=== PATIENT | male | born 1945 | race Caucasian/White ===

== ENCOUNTER 2023-11-02 10:23 | Inpatient (IN) | payer BC, MEDICARE, SELFPAY ==
[2023-11-02] VITALS (16 sets, daily range): BP systolic 100–133; BP diastolic 49–79
[2023-11-02] MEDS: NSS 500 IV (06:50)
[2023-11-02 07:18] LABS: Hematocrit 37.2 % (39.0-52.0); Hemoglobin 12.5 g/dL (13.0-18.0); Mean Corp Hgb Conc. 33.6 g/dL (33.0-37.0); Mean Corpuscular Hgb 28.8 pg (27.0-31.0); Mean Corpuscular Volume 85.7 fL (80.0-94.0); Mean Platelet Volume 8.4 fL (7.4-10.4); Platelet Count 321 10^3/uL (130-400); Red Blood Cell Count 4.34 10^6/uL (4.70-6.10); Red Cell Dist. Width 13.3 % (11.5-14.5); White Blood Cell Count 7.8 10^3/uL (4.8-10.8)
[2023-11-02 08:00] LABS: ALT (SGPT) 25 U/L (0-50); AST (SGOT) 29 U/L (17-59); Albumin 4.4 g/dl (3.5-5.0); Alkaline Phosphatase 68 U/L (38-126); Blood Urea Nitrogen 18 mg/dl (9-20); Calcium 9.3 mg/dl (8.4-10.2); Carbon Dioxide 22 mmol/L (22-30); Chloride 106 mmol/L (98-107); Glucose 94 mg/dl (70-99); Potassium 4.9 mmol/L (3.5-5.1); Sodium 134 mmol/L (135-145); Total Bilirubin 0.5 mg/dl (0.2-1.3); Total Protein 7.4 g/dl (6.3-8.2); eGFR > 60.00
--- NOTE | 2023-11-02 09:15 | ITS.CL.PACE ---
Food Editor - Pacemaker Implant
Pacemaker Implant
Procedure Report:
PACEMAKER IMPLANT REPORT
Primary Care Provider: Dr. Carlene Stewart
Primary retail beauty specialist: Dr. Aryan Calvo
Date of Procedure: November 02, 2023
Procedure:
Implantation of dual-chamber permanent pacemaker utilizing the left bundle branch for conduction system pacing
Indication/Diagnosis:
Non-reversible symptomatic bradycardia due to sinus node dysfunction as well as high grade AV block (both second atrioventricular block as well as third degree atrioventricular block)
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
After informed consent was obtained, 'time out' was called and confirmed, the patient was prepped and draped in a sterile fashion. Lidocaine with epi was used for local anesthesia. Central venous access was obtained via subclavian venipuncture. An
incision was made along the left chest and a pre-pectoral pocket was formed. Using a Seldinger technique and peel-away sheaths, the pacing leads were placed under fluoroscopic guidance.
Fluoroscopy was used to determine likely anatomic site for left bundle branch pacing. The Medtronic C315 sheath was used to deliver the Medtronic 3830 Selectsecure pacing lead with the helix exposed just exposed from the sheath tip during continuous
monitoring when pacemapping the septum during gentle clockwise rotation to obtain a paced QRS morphology of a W pattern in lead V1. Once the suspected optimal site was identified, lead deployment was performed with several rapid rotations as paced
QRS morphology was intermittently monitored until a paced QRS complex in lead V1 demonstrated development of an R wave (qR) with change in morphology with reducing pacing output (development of a taller R with reducing pacing output).
Unipolar pacing impedance dropped by approximately 100 ohms suggesting it had reached the left ventricular subendocardial.
Stable VEgm injury current is present throughout lead position and at end of case.
Final unipolar pacing impedance is 890 Ohms
Unipolar pacing threshold is stable at 1 V @ 0.4 ms.
Final conduction system paced QRS complex duration is 115 ms
LVAT is 65 ms
Right atrial lead was placed at the RAA.
Once testing (see below) showed adequate and stable function, the leads were secured using the suture sleeves. The pocket was liberally irrigated with antibiotic solution. The leads were connected to the generator header and the leads and
generator were placed within the pocket. Fluoroscopy confirmed stable lead position. The pocket was closed in the typical fashion.
Antibiotic pouch was used
Fluoroscopy was used to guide lead placement. Fluoroscopic exposure 4.8 min, 8.69 mGy, 1.01 DAP
IMPLANTS:
Medtronic [id number], SN: [id number], Left Pectoral
RA: Medtronic 5076-45, SN: [id number] , RAA
RV: Medtronic 3830 , SN:[id number], Interventricular septum at LBB
DEVICE TESTING:
Sensing: RA 3.8 mV, RV 12 mV
Capture: RA 1.5 V@0.4ms, RV 1 V@0.4ms
Ohms: RA 540, RV 890
FINAL PROGRAMMING
Pantera Pacing: AAIR+ 60-130 ppm
COMPLICATIONS:
None
CONCLUSIONS:
Successful implant of dual chamber permanent pacemaker utilizing Left Bundle Branch conduction system capture for pacing. Overall findings are most consistent with LBB capture.
RECOMMENDATIONS:
Post-op care (tele, CXR, IV abx)
Hospital admission preplanned, for sotalol reloading (sotalol 80 mg twice daily)
In-Office wound check in 5-7 days
Copy to:
Dr. Carlene Stewart
Dr. Aryan Calvo
[2023-11-02] MEDS: TYLENOL 650 MG PO ×3 (09:19→19:49)
[2023-11-02] MEDS: AUGMENTIN 500 MG/125 MG 1 TABLET PO ×2 (09:56→22:11)
[2023-11-02] MEDS: BETAPACE 80 MG PO ×2 (10:08→19:49)
--- NOTE | 2023-11-02 11:00 | PTCARENOTE ---
Rec'd report from Camryn in nursery laborer. Rec'd pt AAOx3 w/no c/o CP or SOB post PPM placement. Pt w/LUE immobilizer in place & this RN reiterated activity restrictions. VS stable w/HR in the 60's. Pt is V-paced on telemetry monitoring. Pt w/call glaser
within reach & plan of care ongoing.
[2023-11-02] MEDS: NSS IV (13:57)
[2023-11-02] MEDS: ANCEF 5 IV ×2 (14:39→22:00)
[2023-11-02] MEDS: FLUSH (NSS) 2 FLUSH IV (14:40)
--- NOTE | 2023-11-02 15:59 | CM ---
Reviewed chart. Met with Mr. Bingham to review discharge plans. He states prior to admission he resides with his spouse in a three story home. He states he has a full flight of steps to get to bedroom/full bathroom. He states he has a powder
room on the first floor. He states prior to admission he was independent with ambulation and adls. He states he does not have any DME in the home. He states he has a prescription plan. Medical work-up in progress. The discharge plan is to return
home with his spouse when medically stable.
[2023-11-02] MEDS: CRESTOR 5 MG PO (21:59)
[2023-11-02] MEDS: ULTRAM 50 MG PO (21:59)
[2023-11-02] MEDS: PROTONIX 40 MG PO (21:59)
[2023-11-02] MEDS: XALATAN OPHTHALMIC SOLUTION 1 DROP BOTH EYES (22:00)
[2023-11-02] MEDS: AMBIEN 5 MG PO (22:57)
--- NOTE | 2023-11-03 01:22 | PTCARENOTE ---
Pt received start of shift, HR AV paced w/ underlying SR w/ 1st degree HB. Pt OOB walking the unit with at side. Once back in the room, discussed with pt plan of care and purpose of arm immobilizer. Pt states understanding. Pt denies CP, SOB,
or lightheadedness/dizziness at this time. Informed to notify RN if any change, call glaser within reach.
Pt c/o 10/27 pain at insertion site. tylenol given, ineffective. New pain 12/27. CVPA Ed Gwendolyn notified, ultram ordered and administered.
[2023-11-03 04:00] VITALS: BP 99/49
[2023-11-03 04:43] LABS: Hematocrit 33.4 % (39.0-52.0); Hemoglobin 11.1 g/dL (13.0-18.0); Mean Corp Hgb Conc. 33.2 g/dL (33.0-37.0); Mean Corpuscular Hgb 28.2 pg (27.0-31.0); Mean Platelet Volume 8.7 fL (7.4-10.4); Platelet Count 287 10^3/uL (130-400); Red Blood Cell Count 3.93 10^6/uL (4.70-6.10); Red Cell Dist. Width 13.1 % (11.5-14.5); White Blood Cell Count 12.7 10^3/uL (4.8-10.8)
[2023-11-03 05:05] LABS: Blood Urea Nitrogen 17 mg/dl (9-20); Calcium 9.1 mg/dl (8.4-10.2); Carbon Dioxide 23 mmol/L (22-30); Chloride 103 mmol/L (98-107); Estimated Creatinine Clearance 62 ml/min; Glucose 102 mg/dl (70-99); Potassium 4.5 mmol/L (3.5-5.1); Sodium 133 mmol/L (135-145); eGFR > 60.00
[2023-11-03 07:42] VITALS: BP 112/69
[2023-11-03] MEDS: NSS IV (08:02)
[2023-11-03] MEDS: BETAPACE 80 MG PO ×2 (08:03→18:00)
[2023-11-03] MEDS: PROTONIX 40 MG PO (08:03)
[2023-11-03] MEDS: FLOMAX 0.400000000000000022 MG PO (08:03)
[2023-11-03] MEDS: AUGMENTIN 500 MG/125 MG 1 TABLET PO (09:49)
[2023-11-03] MEDS: PERCOCET 5/325 1 TABLET PO (09:49)
--- NOTE | 2023-11-03 09:51 | W.PN.CARDCBS ---
Addendum entered and electronically signed by Abiel Grossman MD 11/03/23 10:13:
Patient seen, interviewed and examined by me.
Well-appearing, no acute distress
Dressing over left chest is clean and dry
Regular rate and rhythm with normal S1 and S2, no S3 no S4. There is a grade 1/6 apical holosystolic murmur and no rubs. PMI is normally placed.
Lungs are clear to auscultation bilaterally without wheezes rales or rhonchi.
Abdomen soft nontender nondistended with normoactive bowel sounds
Extremities show trace pretibial edema bilaterally no clubbing or cyanosis.
Neurologic exam is grossly nonfocal.
Agree with advanced practice professionals assessment and plan as noted below.
He is doing well after pacemaker implantation yesterday. Telemetry continues to demonstrate sinus rhythm/atrial pacing.
EKG with stable corrected QT interval.
Continue sotalol with plan for discharge to home later today after his second dose today as long as QT corrected remains stable.
All of his questions have been answered.
Original Note:
Today's Communication / Plan
-
post PPM, sotalol loading
4th dose this evening if QTc stable, d/c home
Impression / Plan
-
Primary Care Provider: Dr. Carlene Stewart
Primary corrosion technician: Dr. Aryan Calvo
Impression:
Symptomatic bradycardia
Syncope
SVT/AVNRT post ablation 2015
MINNIE/Malabsorption
Chronic diverticulitis
Bladder cancer
Gastritis
GERD
Plan:
post DC PPM using LBB conduction pacing 11/02/23
Sotalol reloading 80mg bid Dose #3 this am QTc 477
Will get 4th dose tonight at 6pm if QTc stable d/c home
CXR no PTX
tele AVdual paced
site stable
mod pain, will give Percocet now
pressure dressing removed
Miralax for constipation
Activity restrictions reviewed
inc check 1 week
home after 4th dose tonight
Progress Note - Certified Nurse Practitioner
Subjective
Date of Service: November 03, 2023
no cp, sob, mod inc pain mild relief with ultram
Objective
Labs:
11/03/23 04:05
11/03/23 04:05
Labs
Hgb 11.1 g/dL (13.0-18.0) L 11/03/23 04:05
Hct 33.4 % (39.0-52.0) L 11/03/23 04:05
Plt Count 287 10^3/uL (130-400) 11/03/23 04:05
Sodium 133 mmol/L (135-145) L 11/03/23 04:05
Potassium 4.5 mmol/L (3.5-5.1) 11/03/23 04:05
BUN 17 mg/dl (9-20) 11/03/23 04:05
Creatinine 0.9 mg/dL (0.7-1.3) 11/03/23 04:05
Glucose 102 mg/dl (70-99) H 11/03/23 04:05
Vital Signs and I&O:
Vital Signs
Temp Pulse Resp BP Pulse Ox
98 F 63 12 112/69 98
11/03/23 07:41 11/03/23 09:15 11/03/23 07:41 11/03/23 08:03 11/03/23 07:41
Vital Signs
Temp Pulse Resp BP Pulse Ox
98 F 63 12 112/69 98
11/03/23 07:41 11/03/23 09:15 11/03/23 07:41 11/03/23 08:03 11/03/23 07:41
Intake & Output
11/01/23 11/02/23 11/03/23 11/04/23
06:59 06:59 06:59 06:59
Intake Total 1720 / 1720
Output Total 150 / 150
Balance 1570 / 1570
Physical Exam
Physical Exam
NAD, AOX3
S1, S2, RRR
CTAB, non labored
SNTND BSx4
L CW Aquacel dressing c/d/i, pressure dressing removed, no HT
[2023-11-03 11:29] VITALS: BP 108/63
--- NOTE | 2023-11-03 13:37 | W.DS.TRANS ---
DC Summary - Tutoring Manager
-
Discharge Instructions:
Discharge Diagnosis/Procedures Pacemaker implant, Sotalol load
Diet Low Cholesterol
Driving Restrictions No driving for 1 week
Bathing Restrictions OK to Shower
Instructions:
Stand-Alone Forms: DC Inst - Implanted Device
Changes to Home Medications: Yes
Discharge Medications:
DC Medications w/original date entered in [employer]
latanoprost 0.005 % eye drops 1 drp BOTH EYES HS Eye Condition 06/01/15
ascorbic acid (vitamin C) 500 mg tablet (Vitamin C) 500 mg PO DAILY Supplement 10/24/15
cholecalciferol (vitamin D3) 25 mcg (1,000 unit) capsule (Vitamin D3) 1,000 unit PO DAILY Supplement 10/24/15
cyanocobalamin (vitamin B-12) 1,000 mcg tablet 1,000 mcg PO DAILY Supplement 10/24/15
multivitamin with minerals-ferrous sulfate 4.5 mg iron tablet (One Daily Multivitamins with Minerals) 1 tab PO DAILY Supplement 10/24/15
Lactobacillus rhamnosus GG 15 billion cell sprinkle capsule (Culturelle) 1 tab PO DAILY Gastrointestinal Issue 09/27/20
zolpidem 10 mg tablet 5 mg PO HS Sleep 09/27/20
Cold-Fx 1 tab PO DAILY 09/04/21
Flourouracil 5% Cream 1 dose topical BID 09/04/21
Venofer 1 dose IV PRN PRN ANEMIA 09/04/21
Vitamin B12 1,000 mg SC MONTHLY 09/04/21
amoxicillin 500 mg-potassium clavulanate 125 mg tablet 1 tab PO Q12H diverticulitis 09/04/21
diazepam 5 mg tablet 2.5 mg PO HSPRN PRN SLEEP 09/04/21
hydrocodone 5 mg-acetaminophen 300 mg tablet (Vicodin) 1 ea PO PRN PRN KIDNEY STONES 09/04/21
minoxidil 5 % topical solution (Rogaine Extra Strength for Men) 1 dose topical DAILY 09/04/21
sodium di- and monophosphate-potassium phos monobasic 250 mg tablet (Phosphorous) 250 mg PO PRN PRN LOW PHOSPHOROUS 09/04/21
zinc 50 mg tablet 50 mg PO PRN PRN COLDS 09/04/21
tamsulosin 0.4 mg capsule 0.4 mg PO DAILY #30 caps 09/09/21
docusate sodium 100 mg capsule (Colace) 100 mg PO BID PRN constipation 11/02/23
omeprazole 20 mg tablet,delayed release 20 mg PO DAILY Gastrointestinal Issue 11/02/23
omeprazole magnesium 20 mg tablet,delayed release (Prilosec OTC) 20 mg PO HS 11/02/23
rosuvastatin 5 mg tablet 5 mg PO HS High Cholesterol 11/02/23
sennosides 8.6 mg tablet (senna) 1 tab PO DAILY Constipation 11/03/23
sotalol 80 mg tablet 80 mg PO BID #60 tabs 11/03/23
Home Medication Changes
new to sotalol
Pending Results: No
[2023-11-03 15:25] VITALS: BP 96/56
[2023-11-03 18:02] VITALS: BP 111/66
--- NOTE | 2023-11-03 18:59 | PTCARENOTE ---
Reviewed pt's d/c instructions w/ pt and . Pt awaiting 1999 EKG. Report given to scene shifter RN.
--- NOTE | 2023-11-03 20:27 | PTCARENOTE ---
Pt's EKG completed 2hrs post dose #4 of Sotalol. QTc was 440. Per MD order pt cleared for D/C this evening. Pt's IV line & telemetry D/C'd. Pt D/C'd to w/spouse providing transportation.
== END 2023-11-03 20:29 | disposition home or self-care (01) | DRG 243 ==
LOC: IVU 10:23
PROVIDERS: Nurse Practitioner; ADMITTING PHYSICIAN Internal Medicine Cardiovascular Disease; FAMILY PHYSICIAN Family Medicine
PROC: 3E0102A Introduction of Anti-Infective Envelope into Subcutaneous Tissue, Open Approach (ICD-10-PCS; 2023-11-02)
PROC: 02H63JZ Insertion of Pacemaker Lead into Right Atrium, Percutaneous Approach (ICD-10-PCS; 2023-11-02)
PROC: 0JH606Z Insertion of Pacemaker, Dual Chamber into Chest Subcutaneous Tissue and Fascia, Open Approach (ICD-10-PCS; 2023-11-02)
PROC: 3E0DXRZ Introduction of Antiarrhythmic into Mouth and Pharynx, External Approach (ICD-10-PCS; 2023-11-02)
PROC: 02HK3JZ Insertion of Pacemaker Lead into Right Ventricle, Percutaneous Approach (ICD-10-PCS; 2023-11-02)
DX: I44.2 Atrioventricular block, complete (principal); K90.9 Intestinal malabsorption, unspecified; I49.5 Sick sinus syndrome; I47.19 Other supraventricular tachycardia; D50.9 Iron deficiency anemia, unspecified; K21.9 Gastro-esophageal reflux disease without esophagitis; Z87.19 Personal history of other diseases of the digestive system; Z85.51 Personal history of malignant neoplasm of bladder
CPT/HCPCS: 33208; 71045; 80048; 80053; 85027; 93005; C1769; C1785; C1887; C1892; C1898; Q9967

== ENCOUNTER → 2023-11-27 15:14 | Outpatient (REF) | payer BC, MEDICARE, SELFPAY ==
[2023-11-27 10:03] LABS: % Basophils 0.5 % (0-2); % Eosinophils 3.4 % (0-6); % Immature Granulocytes 0.2 % (0-0.5); % Lymphocytes 17.3 % (20.5-51.1); % Neutrophils 67.6 % (42.2-75.2); Absolute Eosinophils 0.3 10^3/uL (0-0.7); Absolute Lymphocytes 1.5 10^3/uL (1.2-3.4); Hematocrit 36.2 % (39.0-52.0); Hemoglobin 12.3 g/dL (13.0-18.0); Mean Corpuscular Hgb 28.7 pg (27.0-31.0); Mean Corpuscular Volume 84.4 fL (80.0-94.0); Mean Platelet Volume 9.2 fL (7.4-10.4); Nucleated Red Blood Cells % 0 % (-); Platelet Count 215 10^3/uL (130-400); Red Blood Cell Count 4.29 10^6/uL (4.70-6.10); Red Cell Dist. Width 13.8 % (11.5-14.5); White Blood Cell Count 8.8 10^3/uL (4.8-10.8)
== END ==
LOC: OIDL 15:14
PROVIDERS: ATTENDING PHYSICIAN Internal Medicine Hematology & Oncology
DX: D64.9 Anemia, unspecified (principal)
CPT/HCPCS: 85025

== ENCOUNTER → 2023-12-04 13:35 | Outpatient (REF) | payer BC, MEDICARE, SELFPAY ==
[2023-12-04 10:25] LABS: % Basophils 0.7 % (0-2); % Eosinophils 3.7 % (0-6); % Immature Granulocytes 0.3 % (0-0.5); % Lymphocytes 18.3 % (20.5-51.1); % Monocytes 11.1 % (1.7-9.3); % Neutrophils 65.9 % (42.2-75.2); Absolute Basophils 0.1 10^3/uL (0-0.2); Absolute Eosinophils 0.3 10^3/uL (0-0.7); Absolute Lymphocytes 1.3 10^3/uL (1.2-3.4); Absolute Monocytes 0.8 10^3/uL (0.1-0.6); Absolute Neutrophils 4.8 10^3/uL (1.4-6.5); Hematocrit 36.3 % (39.0-52.0); Hemoglobin 12.4 g/dL (13.0-18.0); Mean Corp Hgb Conc. 34.2 g/dL (33.0-37.0); Mean Corpuscular Hgb 28.8 pg (27.0-31.0); Mean Corpuscular Volume 84.4 fL (80.0-94.0); Mean Platelet Volume 9.2 fL (7.4-10.4); Nucleated Red Blood Cells % 0 % (-); Platelet Count 232 10^3/uL (130-400); White Blood Cell Count 7.3 10^3/uL (4.8-10.8)
== END ==
LOC: OIDL 13:35
PROVIDERS: ATTENDING PHYSICIAN Internal Medicine Hematology & Oncology
DX: D64.9 Anemia, unspecified (principal)
CPT/HCPCS: 85025

== ENCOUNTER → 2023-12-31 11:36 | Outpatient (REF) | payer BC, SELFPAY | LOC: RCS 11:36 | PROVIDERS: ATTENDING PHYSICIAN Internal Medicine Cardiovascular Disease; FAMILY PHYSICIAN Family Medicine | DX: I47.10 Supraventricular tachycardia, unspecified (principal); R53.82 Chronic fatigue, unspecified; I49.5 Sick sinus syndrome | CPT/HCPCS: 93306 ==

== ENCOUNTER → 2024-01-05 09:55 | Outpatient (REF) | payer BC, SELFPAY | LOC: RCS 09:55 | PROVIDERS: ATTENDING PHYSICIAN Internal Medicine Cardiovascular Disease; FAMILY PHYSICIAN Family Medicine | DX: I47.10 Supraventricular tachycardia, unspecified (principal); R53.82 Chronic fatigue, unspecified | CPT/HCPCS: 93017; 93225; 93226 ==

== ENCOUNTER → 2024-06-30 13:08 | Outpatient (REF) | payer BC, SELFPAY | LOC: HWRAD 13:08 | PROVIDERS: ATTENDING PHYSICIAN Specialist; FAMILY PHYSICIAN Family Medicine | DX: N45.1 Epididymitis (principal) | CPT/HCPCS: 76870; 93976 ==

== ENCOUNTER 2024-08-01 07:49 | Outpatient (RCR) | payer BC, SELFPAY | END 2024-08-01 23:59 | disposition home or self-care (01) | LOC: RPT 07:49 | PROVIDERS: ATTENDING PHYSICIAN Family Medicine | DX: R10.32 Left lower quadrant pain (principal); R10.2 Pelvic and perineal pain; R35.1 Nocturia; M62.89 Other specified disorders of muscle; Z73.6 Limitation of activities due to disability | CPT/HCPCS: 97163; 97530 ==

== ENCOUNTER → 2024-08-09 14:27 | Outpatient (REF) | payer BC, SELFPAY | LOC: HWRAD 14:27 | PROVIDERS: ATTENDING PHYSICIAN Specialist; FAMILY PHYSICIAN Family Medicine | DX: N50.89 Other specified disorders of the male genital organs (principal) | CPT/HCPCS: 76870; 93976 ==

== ENCOUNTER → 2024-08-10 08:27 | Outpatient (REF) | payer BC, SELFPAY | LOC: RAD 08:27 | PROVIDERS: ATTENDING PHYSICIAN Specialist; FAMILY PHYSICIAN Family Medicine | DX: R10.32 Left lower quadrant pain (principal) | CPT/HCPCS: 76882 ==

== ENCOUNTER 2025-01-13 09:31 | Day surgery (SDC) | payer BC, SELFPAY ==
[2025-01-13] MEDS: ELIQUIS 5 MG PO (09:50)
[2025-01-13 10:17] VITALS: BMI 25.2
--- NOTE | 2025-01-13 18:44 | ITS.CL.CARDI ---
Service Worker - Cardioversion
Cardioversion
Procedure Report:
Date of Procedure: 01/13/25
Procedure: Cardioversion
Indication: Symptomatic atrial fibrillation
Performing Physician: Princess Funes DO [facility]
-Limited device interrogation: Medtronic [place] Rx T DR MRI device with atrial fibrillation and ventricular pacing.
-Anticoagulation: Eliquis 5mg BID initiated 01/12/2025 pm; Eliquis 5 mg x 1 given in PACU prior to procedure
-Antiarrhythmic: Sotalol 80 mg twice daily
-GI clearance: Patient reported pill dysphagia and history of partial gastrectomy, prior PUD and recent GI procedures at [facility]. Telephone conversation with patient's digital sales executive, Dr. Vinh Jones and reviewed records
from [facility] status post upper GI endoscopy 01/09/2025. Esophagus normal. No diverticula or strictures. Adenomatosis mucosal changes in the anastomosis and jejunum status post argon beam coagulation. X-ray cervical esophagus
with contrast January 05, 2023: No evidence of cricopharyngeal bar. No evidence of esophageal web, stricture or diverticulum. Normal swallowing function. Per Dr. Jones, patient is at the highest risk of bleeding 48 hours after therapy. Per GI
telephone conversation, no contraindications to anticoagulation or proceeding with transesophageal echocardiogram. Discussed increased bleeding risks with patient and offered options including 4 weeks anticoagulation followed by cardioversion, 2
weeks anticoagulation to ensure stability of hemoglobin followed by NEIL/cardioversion or proceeding with NEIL/cardioversion today as previously planned. Marco Antonio has a history of peptic ulcer disease and GI bleed status post radical B2 gastric
restrictions with vagotomy in 2008; he denies recent GI bleed or anemia requiring transfusions. He does have symptoms of fatigue and shortness of breath attributable to his rapid atrial fibrillation. After reviewing risks/benefits and indications
he is agreeable to proceed with NEIL today followed by cardioversion.
-NEIL performed without complications [gastric views not obtained]: No left atrial Appendage thrombus. For full details please see official report
Technique: The patient was brought to the holding area. Signed informed consent was obtained. A time out was called and performed. The patient was anesthetized by the anesthesia service. Anticoagulation status was reviewed and appropriate. R2 pads
were placed anteriorly and posteriorly. Transesophageal echocardiogram performed without complications. No left atrial appendage thrombus. A 200 J synchronized biphasic shock restored AV paced Rhythm confirmed by device interrogation. There were no
complications.
Conclusion: Uncomplicated cardioversion from atrial fibrillation to AV paced rhythm.
Recommendation: Routine post cardioversion care. Continue uninterrupted anticoagulation with Eliquis 5 mg twice daily. Follow-up with his litigation specialist, Dr. Clifton Grossman; Ablation scheduled 03/29/2025.
== END 2025-01-13 13:06 | disposition home or self-care (01) ==
LOC: CATH 09:31
PROVIDERS: ATTENDING PHYSICIAN Internal Medicine Cardiovascular Disease; FAMILY PHYSICIAN Family Medicine; REFERRING PHYSICIAN Internal Medicine Cardiovascular Disease
DX: I48.91 Unspecified atrial fibrillation (principal); I08.1 Rheumatic disorders of both mitral and tricuspid valves; R13.10 Dysphagia, unspecified; Z79.01 Long term (current) use of anticoagulants; Z79.899 Other long term (current) drug therapy; Z87.11 Personal history of peptic ulcer disease; Z90.3 Acquired absence of stomach [part of]; I47.10 Supraventricular tachycardia, unspecified; E78.5 Hyperlipidemia, unspecified; I49.5 Sick sinus syndrome
CPT/HCPCS: 93312; 93320; 93325; 92960; 93005

== ENCOUNTER 2025-03-29 08:04 | Day surgery (SDC) | payer BC, SELFPAY ==
[2025-03-22 08:53] VITALS: BMI 24.7
[2025-03-22 09:44] LABS: Hematocrit 36.8 % (39.0-52.0); Hemoglobin 12.1 g/dL (13.0-18.0); Mean Corp Hgb Conc. 32.9 g/dL (33.0-37.0); Mean Corpuscular Volume 84.8 fL (80.0-94.0); Nucleated Red Blood Cells % 0 % (-); Platelet Count 241 10^3/uL (130-400); Red Cell Dist. Width 13.5 % (11.5-14.5)
[2025-03-22 09:50] LABS: INR 1.08; PT 14.5 Sec (11.4-14.6)
[2025-03-22 10:39] LABS: ALT (SGPT) 41 U/L (0-50); AST (SGOT) 28 U/L (17-59); Albumin 4.5 g/dl (3.5-5.0); Alkaline Phosphatase 71 U/L (38-126); Blood Urea Nitrogen 13 mg/dl (9-20); Calcium 9.7 mg/dl (8.4-10.2); Carbon Dioxide 25 mmol/L (22-30); Chloride 105 mmol/L (98-107); Estimated Creatinine Clearance 62 ml/min; Glucose 105 mg/dl (70-99); Magnesium 2.2 mg/dl (1.6-2.3); Potassium 4.7 mmol/L (3.5-5.1); Sodium 136 mmol/L (135-145); Total Protein 7.3 g/dl (6.3-8.2); eGFR > 60.00
[2025-03-29] VITALS (11 sets, daily range): BP systolic 107–128; BP diastolic 65–75
[2025-03-29] MEDS: TYLENOL 1000 MG PO (09:10)
--- NOTE | 2025-03-29 09:16 | ITS.CL.ABL ---
Explosive Operator Bomb - Ablation
Ablation
Procedure Report:
ELECTROPHYSIOLOGIC STUDY AND POSSIBLE ABLATION
DATE: March 29, 2025
Primary Care Providers:
Dr. Carlene Stewart
Dr. Maryanne Gomez
INDICATION:
Symptomatic Atrial Fibrillation.
Persistent
HISTORY: See H and P.
Symptomatic AF, poorly controlled with attempted medical therapy
HAS-BLED: 2
Age
H/O Bleeding
CHADSVASc: 2
Age
PRESENTING RHYTHM: SR
HISTORY: See H and P.
Symptomatic AF, poorly controlled with attempted medical therapy.
He has a complex arrhythmia history.
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
but ultimately recurred and has been treated with sotalol with overall good symptom control regarding the atrial tachycardia.
He developed symptomatic bradycardia from AV block and underwent implantation of conduction system dual-chamber permanent pacemaker on November 02, 2023 (Medtronic left bundle branch pacing system).
He then developed progressive fatigue and dyspnea on exertion with pacemaker diagnostics demonstrating persistence of atrial fibrillation.
Complicating medical history includes chronic iron deficiency anemia and malabsorption syndrome related to remote history of distal gastrectomy and gastrojejunal anastomosis. Subsequently he has had recurrent and at times severe GI bleeding
requiring blood transfusion. Due to recurrent GI bleeding maintaining anticoagulation has been difficult. Most recently he has tolerated Eliquis 5 mg twice daily with no major bleeding complications.
ANTIARRHYTHMIC DRUG: Sotalol 80 mg twice daily
ANTICOAGULATION: Apixaban 5 mg twice daily
'TIME-OUT': called and confirmed.
SEDATION/ANESTHESIA: provided via the anesthesia department using general anesthesia.
PROCEDURE:
Ultrasound Guidance with real-time visualization of needle insertion and vessel patency performed by tn for femoral venous Vascular Access.
Under real-time US guidance, the needle was advanced with negative pressure into the vein. The needle was seen entering the vessel lumen with a good return of dark red flow, the syringe was removed, non-pulsatile, dark red blood low was noted and
the wire was passed without difficulty, then the needle was removed. US confirmed the wire was in the vein, not going into an artery,
Images were taken and saved for the patient's permanent record. Imaging findings typical femoral venous anatomy. Direct visualization of needle puncture into the femoral vein was observed and recorded.
3 sheaths were inserted into the right femoral vein.
10 Fr, 10Fr, 7 Fr a 10fr sheath was then exchanged for the 13 Fr Agilis deflectable sheath and dilator over a wire.
A decapolar CS catheter was positioned within the CS for mapping and pacing.
The intracardiac ultrasound catheter was positioned in the RA for continuous intracardiac ultrasound imaging.
Heparin bolus and infusion to target ACT at 300 -350 seconds was administered. Transseptal puncture was performed. This entailed advancing a sheath with dilator into the superior vena cava and withdrawing both (monitoring intracardiac ultrasound,
fluoroscopy and tip pressure) with the tip oriented toward the atrial septum. The fossa ovalis was engaged (indicated by sudden displacement of the sheath tip as well as tenting of the fossa seen on intracardiac ultrasound).
The K[employer] transseptal system was used. Left atrial catheter position was confirmed by echocardiographic imaging and fluoroscopy followed by RF delivery using the [employer] system resulting in successful LA access with pressure monitoring
demonstrating LA pressure waveforms (LA mean pressure 7 mm Hg). The sheath was advanced over the dilator and positioned in the left atrium.
The Villegas Grid multipolar mapping catheter was initially positioned through the transseptal sheath for high density mapping.
Geometry and voltage mapping was performed using the Villegas multipolar grid catheter. Ensite-X was utilized for three-dimensional electroanatomical mapping.
A 3-D map was created using Ensite-X in Voxel mode. A 3-D reconstructed CT image was compared to the 3-D Navex map to assist in anatomic evaluation, mapping and ablation.
The FarapSequent PFA catheter and system was used for cardiac ablation. Catheter positioning was guided and confirmed using both I.C.E. and fluoroscopy.
Ablation strategy included PVI as well as mapping for extra PV contributors to atrial fibrillation which would also be targeted if present.
High density electroanatomical three-dimensional mapping demonstrated Left Common PV, RSPV, RIPV.
After accomplishing pulmonary venous isolation, mapping identified additional areas likely to be extra PV contributors to atrial fibrillation. These areas demonstrated patchy low voltage as well as complex fractionated electrograms. These areas can
be sites for the formation of rotors which can drive and maintain atrial fibrillation. These areas are known to be significant contributors to initiation and perpetuation of atrial fibrillation.
Additional energy applications/additional ablation sets targeted extra PV contributors to atrial fibrillation.
Targets for additional PFA ablation included:
LA posterior wall targeted with pulsed electric field energy isolating the posterior wall of the left atrium
After ablation of the posterior wall, additional targets were addressed:
LA inferior floor
The ridge of tissue between the left atrial appendage and the left sided pulmonary veins (Ligament of Estuardo )
These areas were ablated using pulsed electric field energy eliminating the extra PV contributors to atrial fibrillation.
Post ablation mapping finds entrance and exit block at each of the pulmonary veins, the LA posterior wall and electrical isolation at the additional lines at the Inferior/floor of the LA and the Ligament of Marshal rendering the sites no longer
able to contribute to atrial fibrillation.
Programmed electrostimulation including burst atrial pacing failed to induce any sustained arrhythmias. The delivery of decremental extrastimuli was able to induce a slightly irregular atrial tachyarrhythmia at cycle length 360 to 380 ms.
Entrainment from the lateral wall of the right atrium finds this to be outside the tachycardia circuit. High density electroanatomical mapping was performed. This finds a micro reentrant circuit just beneath the left inferior pulmonary vein
towards the mitral valve annulus. Pulsed electric field energy was delivered to this targeted area resulting in a slight change in activation sequence and change in cycle length to 340-360 ms. Entrainment from the lateral wall of the right atrium
again finds this to be outside the tachycardia circuit. Additional high density electroanatomical mapping in the left atrium now find earliest atrial activity/atrial tachycardia along the interatrial septum between the right superior and right
inferior pulmonary veins off of the mitral valve annulus at approximately 10:00 in the TYLER position. Delivery of pulsed electric field energy at this location failed to change the tachycardia.
Next, given that pulsed electric field energy was delivered beneath the left inferior pulmonary vein targeting a micro reentrant tachyarrhythmia, it was decided to give an additional lesion closure to the mitral valve annulus to interrupt the
potential mitral annular flutter circuit. Intravenous pressors were administered to raise a systolic blood pressure to approx 150 mmHg. Then 200 mcg of nitroglycerin was administered intravenously and 1 minute later pulsed electric field energy
was delivered to this area of the mitral valve annulus. At no point was there any hemodynamic compromise nor was there any ST segment changes on the electrocardiogram.
Attention was now turned to mapping the right atrium. Catheters were withdrawn from the left atrium. High density electroanatomical mapping using the [employer] catheter was now performed of the right atrium. Earliest atrial activity is at the
high septal right atrium at the junction of the superior vena cava to the right atrium. This was approximately 30 ms pre-P wave on surface electrocardiogram. Delivery of pulsed electric field energy to this area failed to interrupt or change the
tachycardia.
It is possible this could be an aortic cusp origin. At this point it was decided to proceed with electrical cardioversion with maintaining oral sotalol which previously had good success at rhythm control of his atrial tachycardia.
I.C.E. :
Pre-Ablation Post-Ablation
LVEF: 55 % 55 %
WMA: none none
Pericardial effusion: none none
LA Pressure 7
COMPLICATIONS:
None
SUMMARY:
- Mapping and ablation to isolate the PVs resulting in electrical isolation of the pulmonary veins
- Additional AF ablation sets X 3 after PVI (LA posterior wall, Inf/floor of the LA posterior wall, Ligament of Estuardo) resulting in elimination of the targeted extra PV contributors to atrial fibrillation.
- Mapping and ablation of second tachycardia, left atrial tachycardia
- 3-D Electroanatomical Mapping
- Intracardiac Ultrasound
- Ultrasound guidance for vascular access
Post ablation, I discussed today's findings and results with the patient's , Katelin.
RECOMMENDATIONS:
- Observe in monitored bed.
- Maintain oral anticoagulation.
- Continue sotalol 80 mg twice daily
- Office visit with Christine Caceres NP on June 29, 2025
Copy to:
Dr. Carlene Stewart
Dr. Maryanne Gomez
--- NOTE | 2025-03-29 16:13 | W.PN.UPDATE ---
Update Note
Progress Note Update
79 yo WM s/p PVI (Same day). He denies cp, sob, dayana diet, voiding, EKG AV paced with RBBB, R fem site c/d/i. He will resume Eliquis tonight and continue sotalol. Activity restrictions reviewed. He will f/u Dr. Lazo in 3 mo. He is for d/c home after
5p if groin stable.
[2025-03-30 06:21] LABS: ACT-LR - POC 303 Seconds (116-155)
[2025-03-30 06:21] LABS: ACT-LR - POC 313 Seconds (116-155)
[2025-03-30 06:21] LABS: ACT-LR - POC 305 Seconds (116-155)
[2025-03-30 06:22] LABS: ACT-LR - POC 364 Seconds (116-155)
[2025-03-30 06:22] LABS: ACT-LR - POC 366 Seconds (116-155)
== END 2025-03-29 16:35 | disposition home or self-care (01) ==
LOC: CATH 08:04
PROVIDERS: ATTENDING PHYSICIAN Internal Medicine Cardiovascular Disease; FAMILY PHYSICIAN Family Medicine; OTHER PHYSICIAN Internal Medicine
DX: I48.0 Paroxysmal atrial fibrillation (principal); R53.82 Chronic fatigue, unspecified; G25.81 Restless legs syndrome; H40.9 Unspecified glaucoma; H91.93 Unspecified hearing loss, bilateral; I47.19 Other supraventricular tachycardia; M19.90 Unspecified osteoarthritis, unspecified site; M81.0 Age-related osteoporosis without current pathological fracture; N40.0 Benign prostatic hyperplasia without lower urinary tract symptoms; Z79.01 Long term (current) use of anticoagulants; Z79.1 Long term (current) use of non-steroidal anti-inflammatories (NSAID); Z79.899 Other long term (current) drug therapy; Z85.51 Personal history of malignant neoplasm of bladder; Z85.828 Personal history of other malignant neoplasm of skin; Z86.0100 Personal history of colon polyps, unspecified; Z87.11 Personal history of peptic ulcer disease; Z87.442 Personal history of urinary calculi; Z88.0 Allergy status to penicillin; Z88.1 Allergy status to other antibiotic agents; Z88.5 Allergy status to narcotic agent; Z90.49 Acquired absence of other specified parts of digestive tract; Z90.89 Acquired absence of other organs; Z98.890 Other specified postprocedural states; Z95.0 Presence of cardiac pacemaker
CPT/HCPCS: C1894; C1732; C1769; C1730; C1892; 36415; 75572; 80053; 83735; 85025; 85347; 85610; 86850; 86900; 86901; 93005; 93655; 93656; 93657; C1733; Q9967

== ENCOUNTER 2025-05-15 13:18 | Inpatient (IN) | payer BC, SELFPAY ==
[2025-05-15] VITALS (16 sets, daily range): BP systolic 90–150; BP diastolic 71–111; BMI 26.5
--- NOTE | 2025-05-15 07:59 | ITS.CL.ABL ---
[facility] - Ablation
Ablation
Procedure Report:
ELECTROPHYSIOLOGIC STUDY AND POSSIBLE ABLATION
Procedure Date: May 15, 2025
Primary Care Providers:
Dr. Carlene Stewart
Dr. Maryanne Gomez
INDICATION: Supraventricular tachycardia, palpitations
HISTORY: Recurrent symptomatic supraventricular tachycardia.
He has a complex arrhythmia history.
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
but ultimately recurred and has been treated with sotalol with overall good symptom control regarding the atrial tachycardia.
He developed symptomatic bradycardia from AV block and underwent implantation of conduction system dual-chamber permanent pacemaker on November 02, 2023 (Medtronic left bundle branch pacing system).
He then developed progressive fatigue and dyspnea on exertion with pacemaker diagnostics demonstrating persistence of atrial fibrillation.
He then underwent PVI as well as ablation of extra PV triggers to help was a difficult case March 29, 2025.
He has subsequently recurred with symptomatic atrial tachycardia
Complicating medical history includes chronic iron deficiency anemia and malabsorption syndrome related to remote history of distal gastrectomy and gastrojejunal anastomosis. Subsequently he has had recurrent and at times severe GI bleeding
requiring blood transfusion. Due to recurrent GI bleeding maintaining anticoagulation has been difficult. Most recently he has tolerated Eliquis 5 mg twice daily with no major bleeding complications.
ANTIARRHYTHMIC DRUG: Sotalol 80 mg twice daily
ANTICOAGULATION: Apixaban 5 mg twice daily
PROCEDURE:
Ultrasound Guidance with real-time visualization of needle insertion and vessel patency performed by mt for femoral venous Vascular Access.
Under real-time US guidance, the needle was advanced with negative pressure into the vein. The needle was seen entering the vessel lumen with a good return of dark red flow, the syringe was removed, non-pulsatile, dark red blood low was noted and
the wire was passed without difficulty, then the needle was removed. US confirmed the wire was in the vein, not going into an artery,
Images were taken and saved for the patient's permanent record. Imaging findings typical femoral venous anatomy. Direct visualization of needle puncture into the femoral vein was observed and recorded.
Multipolar recording catheters were positioned at CS (for left atrial recording/mapping) and utilizing the [employer] multipolar grid catheter at the right atrium.
Patient presents in atrial tachycardia, cycle length is 300 ms with earliest activation on the decapolar catheter from proximal to distal.
High density electroanatomical activation mapping finds earliest atrial activity along the high posterior lateral right atrium just posterior to the kenneth terminalis.
This area was targeted with RF catheter ablation.
Prior to the delivery of any RF energy, high output pacing was delivered via the ablation catheter to assess for any phrenic nerve capture. At each RF ablated site, there is no phrenic nerve capture prior to delivering RF energy.
During RF energy delivery activation shifted slightly to a more posterior and superior site and again RF application was delivered after pacing determined that there was no phrenic nerve capture in that area. Atrial tachycardia then degenerated
into a more rapid and slightly irregular atrial tachycardia cycle length 230 240 ms briefly and then back to 300 ms cycle length but a different activation sequence on the coronary sinus catheter, now earliest activation is at CS 7 8/CS 5 6.
Next arterial access was obtained and via retrograde aortic approach, the multipolar grid mapping catheter was advanced around the aortic arch to the aortic cusps and hide introduction anatomical mapping was performed. This area however was late.
Intracardiac echocardiogram was utilized to assist in transseptal puncture and also to better visualize and assist with catheter movement/mapping within the left atrium and to assess for any traumatic injury during ablation.
Next, transseptal puncture was performed and the left atrium was mapped.
Transseptal puncture was performed. This entailed advancing a sheath with dilator into the superior vena cava and withdrawing both (monitoring intracardiac ultrasound, fluoroscopy and tip pressure) with the tip oriented toward the atrial septum.
The fossa ovalis was engaged (indicated by sudden displacement of the sheath tip as well as tenting of the fossa seen on intracardiac ultrasound).
Left atrial catheter position was confirmed by echocardiographic imaging, pressure monitoring (LA mean pressure 16 mm Hg) and fluoroscopy. The sheath was advanced over the dilator and positioned in the left atrium.
There is complete electrical isolation of each of the pulmonary veins (left common and 2 separate right sided pulmonary veins) and also electrical isolation of the posterior wall of the left atrium.
High density electroanatomical mapping found near continuous electrical activity at the dome and slightly anterior of the left atrium just outside the ostium of the left atrial appendage.
Farapulse PFA catheter was then substituted. IV pressors were administered to obtain and maintain systolic blood pressure greater than 150 mmHg. Then 200 mcg of intravenous nitroglycerin was administered. Following this pulsed electric field
energy was delivered to the targeted area without any interruption of the tachycardia.
Post ablation mapping finds elimination of the electrograms in this area. Additional mapping including entrainment mapping suggested left atrial focus at the inferior quadrant of the ostium of the left atrial appendage.
Pulsed electric field energy was given in this area but contact with the PFA catheter was less than ideal. Subsequently RF irrigated tip 4 mm catheter was substituted and RF energy was delivered to this area again without interruption in the
tachycardia.
At this point there is no further definable target for RF ablation.
It is possible there could be epicardial focus at the left atrium, potentially with various breakouts.
Cardioversion restored sinus rhythm.
Interrogation of the pacemaker and lead system once all catheters were removed finds normal function of the pacemaker and lead system. There is no change in the fluoroscopic appearance of the leads.
I did reprogram the Medtronic dual-chamber permanent pacemaker from its baseline parameters. I programmed on atrial preference pacing which had not previously been programmed on. I also programmed on atrial antitachycardia pacing to treat atrial
tachycardia. Similarly, this was not previously programmed on.
I.C.E. :
Pre-Ablation Post-Ablation
LVEF: 55% 55%
WMA: None none
Pericardial effusion: Trace trace
COMPLICATIONS: None
SUMMARY:
Ultrasound guided vascular access.
SVT mapping and ablation
EPS with coronary Sinus catheter
EPS with drug infusion (IV Ntg)
Transseptal puncture
Intracardiac Echocardiogram
Interrogation and reprogramming of Medtronic dual-chamber permanent pacemaker to now include atrial preference pacing as well as antitachycardia pacing for atrial arrhythmias
RECOMMENDATIONS:
Unable to eliminate all of this tachycardias. Given multiple prior ablations, I believe pushing antiarrhythmic drug therapy is the next best step.
He is currently on sotalol 80 mg twice daily. Will admit him for increase in sotalol dosing from 80 mg twice daily to 160 mg twice daily.
Additionally I have programmed on atrial preference pacing as well as atrial antitachycardia pacing to utilize his pacemaker to help manage his arrhythmias.
If sotalol is not effective, we can consider stopping sotalol and attempting an alternative antiarrhythmic drug such as dofetilide or amiodarone.
Given his known recurrent GI bleeding, left atrial appendage exclusion with Watchman may be a good solution to reduce his long-term exposure to anticoagulation.
Copy to:
Dr. Carlene Stewart
Dr. Maryanne Gomez
[2025-05-15 13:46] LABS: Blood Urea Nitrogen 12 mg/dl (9-20); Calcium 7.8 mg/dl (8.4-10.2); Carbon Dioxide 24 mmol/L (22-30); Chloride 109 mmol/L (98-107); Estimated Creatinine Clearance 83 ml/min; Glucose 123 mg/dl (70-99); Magnesium 1.9 mg/dl (1.6-2.3); Potassium 4.5 mmol/L (3.5-5.1); Sodium 137 mmol/L (135-145); eGFR > 60.00
[2025-05-15] MEDS: BETAPACE 160 MG PO ×2 (13:49→23:30)
[2025-05-15] MEDS: MAGNESIUM OXIDE 400 MG PO (14:35)
--- NOTE | 2025-05-15 14:47 | PTCARENOTE ---
Received patient from PACU at 1410 after SVT ablation. Right groin dressing is dry and intact with DP pulse palpable. Reinforced importance of maintaining supine position in bed, with his RLE straight. AV paced on telemetry, monitoring VS, call glaser
at the bedside and in with him now.
--- NOTE | 2025-05-15 15:06 | CM ---
Chart reviewed. Patient is independent of ADLS, lives with his in a 3 STH, 3 KIM, 0 DME. Patient is having renovations done in his home, so he is currently living in a apartment above the garage, [address]. Plan is for the patient to return
home. CM to follow
--- NOTE | 2025-05-15 18:53 | PTCARENOTE ---
Patient seen by Dr. Grossman, figure of 8 suture removed from the right groin, dressing is dry and intact. Patient informed to request for assistance when getting oob.
[2025-05-15] MEDS: FLOMAX 0.4 MG PO (20:30)
[2025-05-15] MEDS: PROTONIX 40 MG PO (20:30)
[2025-05-15] MEDS: ELIQUIS 5 MG PO (20:30)
[2025-05-15] MEDS: MIRALAX 17 GRAMS PO (22:22)
[2025-05-15] MEDS: AMBIEN 5 MG PO (22:22)
[2025-05-15] MEDS: CRESTOR 20 MG PO (22:22)
[2025-05-15] MEDS: XALATAN OPHTHALMIC SOLUTION 1 DROP BOTH EYES (22:22)
--- NOTE | 2025-05-15 23:55 | PTCARENOTE ---
Received patient at change of shift. AV paced on the monitor, HR in the 70s. R groin CDI, soft. PRN Ambien administered as per pt request. No complaints from pt at this time, call glaser within reach.
[2025-05-16 02:01] VITALS: BP 107/62
[2025-05-16 02:15] LABS: Hematocrit 31.4 % (39.0-52.0); Hemoglobin 10.4 g/dL (13.0-18.0); Mean Corp Hgb Conc. 33.1 g/dL (33.0-37.0); Mean Corpuscular Volume 86.7 fL (80.0-94.0); Platelet Count 206 10^3/uL (130-400); Red Cell Dist. Width 16.7 % (11.5-14.5)
[2025-05-16 03:09] LABS: Blood Urea Nitrogen 14 mg/dl (9-20); Calcium 8.2 mg/dl (8.4-10.2); Carbon Dioxide 23 mmol/L (22-30); Chloride 107 mmol/L (98-107); Estimated Creatinine Clearance 72 ml/min; Glucose 116 mg/dl (70-99); Magnesium 2.1 mg/dl (1.6-2.3); Potassium 4.2 mmol/L (3.5-5.1); Sodium 137 mmol/L (135-145); eGFR > 60.00
[2025-05-16 08:48] VITALS: BP 127/81
[2025-05-16] MEDS: OMNICEF 300 MG PO (08:49)
[2025-05-16] MEDS: ELIQUIS 5 MG PO ×2 (08:49→20:03)
[2025-05-16] MEDS: BETAPACE 160 MG PO ×2 (08:49→20:02)
[2025-05-16] MEDS: LEXAPRO 5 MG PO (08:49)
[2025-05-16] MEDS: PROTONIX 40 MG PO ×2 (08:50→20:03)
[2025-05-16] MEDS: MEDROL 4 MG PO (08:50)
[2025-05-16] MEDS: FLOMAX 0.4 MG PO ×2 (08:50→20:03)
[2025-05-16] MEDS: LASIX 40 MG IV (08:51)
--- NOTE | 2025-05-16 09:32 | W.PN.CARDCBS ---
Addendum entered and electronically signed by Marco Antonio Del Rio MD 05/16/25 10:31:
Patient seen and examined
Agree with SALES & SERVICE ASSOCIATE note and assessment
Agree with SALES & SERVICE ASSOCIATE plan
Atrial paced overnight
Reviewed his ECGs post increase of sotalol with stable QT interval between 505-5 20 ms and the QRS is paced.
Feels well with the increased dosing
Trace to 1+ ankle edema is stable
Exam:
Nonfocal neurologically
JVP 6
Cor regular without murmur
Lungs diminished but clear
Abdomen soft nontender positive bowel sounds
Trace extremity edema at the ankles to mid calf
Alert and x 3
IMPRESSION:
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
AFib, s/p PVI w/PF (03/29/2025)
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
Chronic Iron Deficiency Anemia
Malabsorption Syndrome
Prior distal gastrectomy/gastrojejunal anastomosis
Recurrent GIB, prior transfusions
PLAN:
Procedure report reviewed. Biatrial process status post mapping and ablation in both atria and mapping of the aortic cusps. Pacemaker reprogramming as noted in Dr. Grossman's note with ATP therapies for atrial arrhythmias programmed.
Increasing antiarrhythmic drug therapy as below
Increased sotalol dosing from 80 mg twice daily to 160 mg twice daily- currently on 3rd dose, QTc remains stable
Groin site stable
Doses 3 and 4 of sotalol at higher dose today with dose 5 tomorrow a.m.
If sotalol is not effective, we can consider stopping sotalol and attempting an alternative antiarrhythmic drug such as dofetilide or amiodarone.
Given his known recurrent GI bleeding, left atrial appendage exclusion with Watchman may be a good solution to reduce his long-term exposure to anticoagulation. I did take time to answer questions of the patient regarding this therapy.
anticipate home tomorrow
followup at [facility] as scheduled
Original Note:
Today's Communication / Plan
-
IV lasix this morning
continue sotalol 160 BID- doses 3&4 today
follow EKG post dosing
monitor tele through dose 5
anticipate home tomorrow
Impression / Plan
-
PCP: Carlene Stewart MD
CDY: Clifton Grossman MD
IMPRESSION:
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
AFib, s/p PVI w/PF (03/29/2025)
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
Tachy-Pantera, s/p DC PPM w/LBBAP lead ([employer], 10/2023)
Chronic Iron Deficiency Anemia
Malabsorption Syndrome
Prior distal gastrectomy/gastrojejunal anastomosis
Recurrent GIB, prior transfusions
PLAN:
Complex arrhythmia history, prior ablations most recently 03/2025
Subsequently recurred w/symptomatic atrial tachycardia- now s/p SVT mapping and ablation, with PPM interrog/reprogamming to now include atrial preference pacing as well as antitachycardia pacing to help manage atrial arrhythmias.
Unable to eliminate all of this tachycardias. Given multiple prior ablations, will push antiarrhythmic drug therapy as the next best step.
Increased sotalol dosing from 80 mg twice daily to 160 mg twice daily- currently on 3rd dose, QTc remains stable
Groin site stable
tele- AVPaced, no AT/arrhythmia noted
increased LE edema noted, R>L- 40mg IV lasix today and will monitor
anemia noted, stable post procedure, repeat in AM
monitor on tele through 5th dose sotalol after increase
If sotalol is not effective, we can consider stopping sotalol and attempting an alternative antiarrhythmic drug such as dofetilide or amiodarone.
Given his known recurrent GI bleeding, left atrial appendage exclusion with Watchman may be a good solution to reduce his long-term exposure to anticoagulation
anticipate home tomorrow
followup at [facility] as scheduled
PREADMIT DATA:
He has a complex arrhythmia history.
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
but ultimately recurred and has been treated with sotalol with overall good symptom control regarding the atrial tachycardia.
He developed symptomatic bradycardia from AV block and underwent implantation of conduction system dual-chamber permanent pacemaker on November 02, 2023 (Medtronic left bundle branch pacing system).
He then developed progressive fatigue and dyspnea on exertion with pacemaker diagnostics demonstrating persistence of atrial fibrillation.
He then underwent PVI as well as ablation of extra PV triggers to help was a difficult case March 29, 2025.
He has subsequently recurred with symptomatic atrial tachycardia
Complicating medical history includes chronic iron deficiency anemia and malabsorption syndrome related to remote history of distal gastrectomy and gastrojejunal anastomosis. Subsequently he has had recurrent and at times severe GI bleeding
requiring blood transfusion. Due to recurrent GI bleeding maintaining anticoagulation has been difficult. Most recently he has tolerated Eliquis 5 mg twice daily with no major bleeding complications.
Progress Note - Electric Melt Operator
Subjective
Date of Service: May 16, 2025
Denies cp/palps/dyspnea
c/o increased LE edema, started prior to admission
groin site without pain
Objective
Labs:
05/16/25 02:07
05/16/25 02:07
Labs
Hgb 10.4 g/dL (13.0-18.0) L 05/16/25 02:07
Hct 31.4 % (39.0-52.0) L 05/16/25 02:07
Plt Count 206 10^3/uL (130-400) 05/16/25 02:07
Sodium 137 mmol/L (135-145) 05/16/25 02:07
Potassium 4.2 mmol/L (3.5-5.1) 05/16/25 02:07
BUN 14 mg/dl (9-20) 05/16/25 02:07
Creatinine 0.8 mg/dL (0.7-1.3) 05/16/25 02:07
Glucose 116 mg/dl (70-99) H 05/16/25 02:07
Vital Signs and I&O:
Vital Signs
Temp Pulse Resp BP Pulse Ox
98.2 F 86 12 127/81 97
05/16/25 02:12 05/16/25 08:51 05/16/25 08:48 05/16/25 08:51 05/16/25 08:09
Vital Signs
Temp Pulse Resp BP Pulse Ox
98.2 F 86 12 127/81 97
05/16/25 02:12 05/16/25 08:51 05/16/25 08:48 05/16/25 08:51 05/16/25 08:09
Intake & Output
05/14/25 05/15/25 05/16/25 05/17/25
06:59 06:59 06:59 06:59
Output Total 1025 / 1025
Balance -1025 / -1025
Physical Exam
Physical Exam
AAOx3, MAEE 5/5
RRR S1 S2
CTA bilat, non labored
soft abd + bs
right groin site without ht/bleeding, non tender
RLE w/2+ edema, LLE w/1-2+ edema, palpable pulses bilaterally
[2025-05-16 11:35] VITALS: BP 105/56
--- NOTE | 2025-05-16 11:40 | CM ---
Reviewed chart. Met with Mr. Bingham to review discharge plans. He states s he is feeling better and maybe able to go home soon. He states prior to admission he resides with his spouse in a three story home with three steps to enter. He states he
has a full flight of steps to get to bedroom/full bathroom. He states he has a powder room on the first floor. He states prior to admission he was independent with ambulation and adls. He states he has home 02 at home that he uses PRN. He
states he has portable tanks here and the concentrator is in his home in [place]. He states he has a prescription plan. Medical work-up in progress. The discharge plan is to return home with his spouse when medically stable.
[2025-05-16 16:31] VITALS: BP 105/53
--- NOTE | 2025-05-16 19:12 | PTCARENOTE ---
~[id number]: Handoff report received from nightshift RN. Pt AOx4, AV paced 70s, SBP 120s, RA satting 97%. Patient denies pain at this time. +1 BLE edema, +2/+2 pulses. R groin puncture soft and CDI. Patient independent in room. EKG obtained per order
after sotalol dose. All needs met at this time, call glaser within reach.
~[id number]: patient independent in room. at bedside. Denies pain at this time.
~[id number]: Patient independent in room.No complaints at this time. Family visiting. Patient ambulates the halls frequently. VSS at this time. All needs met, call glaser within reach. Handoff report given to nightshift RN.
[2025-05-16 19:52] VITALS: BP 112/61
[2025-05-16 22:05] VITALS: BP 109/66
[2025-05-16] MEDS: AMBIEN 5 MG PO (22:12)
[2025-05-16] MEDS: CRESTOR 20 MG PO (22:12)
[2025-05-16] MEDS: XALATAN OPHTHALMIC SOLUTION 1 DROP BOTH EYES (22:12)
[2025-05-16] MEDS: MIRALAX 17 GRAMS PO (22:12)
--- NOTE | 2025-05-16 23:11 | PTCARENOTE ---
Received patient at change of shift. V paced on the monitor, HR in the 70s. R groin CDI. EKG obtained per order. No complaints from pt at this time, call glaser within reach.
[2025-05-17 03:56] VITALS: BP 124/75
[2025-05-17] MEDS: TYLENOL 650 MG PO (03:59)
[2025-05-17 05:05] LABS: Hematocrit 33.2 % (39.0-52.0); Hemoglobin 10.7 g/dL (13.0-18.0); Mean Corp Hgb Conc. 32.2 g/dL (33.0-37.0); Mean Corpuscular Volume 88.1 fL (80.0-94.0); Platelet Count 212 10^3/uL (130-400); Red Cell Dist. Width 17.2 % (11.5-14.5)
[2025-05-17 05:36] LABS: Blood Urea Nitrogen 20 mg/dl (9-20); Calcium 8.5 mg/dl (8.4-10.2); Carbon Dioxide 26 mmol/L (22-30); Chloride 103 mmol/L (98-107); Estimated Creatinine Clearance 72 ml/min; Glucose 92 mg/dl (70-99); Magnesium 2.1 mg/dl (1.6-2.3); Potassium 4.1 mmol/L (3.5-5.1); Sodium 134 mmol/L (135-145); eGFR > 60.00
[2025-05-17 07:55] VITALS: BP 118/68
--- NOTE | 2025-05-17 08:12 | W.PN.CARDCBS ---
Addendum entered and electronically signed by Abiel Grossman MD 05/17/25 13:19:
Patient seen, interviewed and examined by me.
Well-appearing, no acute distress
Regular rate and rhythm with normal S1 and S2, no S3 no S4. There is a grade 1/6 apical holosystolic murmur and no rubs. PMI is normally placed.
Lungs are clear to auscultation bilaterally without wheezes rales or rhonchi.
Abdomen soft nontender nondistended with normoactive bowel sounds
Extremities show trace pretibial edema bilaterally no clubbing or cyanosis.
Neurologic exam is grossly nonfocal.
I reviewed telemetry which finds atrial paced ventricular sensed rhythm. There have been no recurrences of atrial tachycardia or atrial fibrillation since EPS/ablation May 15.
Review of telemetry finds atrial paced ventricular sensed rhythm without recurrence of atrial arrhythmias.
He has received his fifth dose of sotalol 160 mg this morning and ECG continues to show stable QTc which is less than 500 ms.
He is tolerating well so far.
Additionally he feels overall more energetic in sinus rhythm and after Lasix diuresis for volume overload.
I discussed with him that our plan would be to maintain sotalol at 160 mg twice daily as long as he tolerates well.
Given his history of recurrent GI bleeding and ongoing risk for GI bleeding we did discuss the possibility of left atrial appendage occlusion with watchman. We discussed this in some generalities today we will plan to discuss it further as an
outpatient.
All of his questions have been answered.
Stable for discharge to home. He will follow-up with us in the office on June 29, 2025 or sooner if the need arises.
I also discussed with him discharge instructions including activity restrictions.
Agree with advanced practice professionals assessment and plan as noted below.
Original Note:
Today's Communication / Plan
-
5th dose sotalol today with 12 lead to follow
likely d/c home later today if QTc remains stable
followup at [facility] as scheduled
Impression / Plan
-
PCP: Carlene Stewart MD
CDY: Clifton Grossman MD
IMPRESSION:
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
AFib, s/p PVI w/PF (03/29/2025)
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
Chronic Iron Deficiency Anemia
Malabsorption Syndrome
Prior distal gastrectomy/gastrojejunal anastomosis
Recurrent GIB, prior transfusions
PLAN:
Complex arrhythmia history, multiple prior ablations most recently 03/2025
Subsequently recurred w/symptomatic atrial tachycardia- now s/p SVT mapping and ablation, with PPM reprogrammed to include atrial preference pacing + ATP therapies for atrial arrhythmias.
Increased sotalol dosing from 80 mg twice daily to 160 mg twice daily- 5th dose this morning- QTc remains stable
Groin site stable
tele- AVPaced, no AT/AFib noted, 4bt run NSVT
improved edema after lasix yesterday- weight today 79.2kg- at baseline for patient
stable anemia noted
If sotalol is not effective, we can consider stopping sotalol and attempting an alternative antiarrhythmic drug such as dofetilide or amiodarone.
Given his known recurrent GI bleeding, left atrial appendage exclusion with Watchman may be a good solution to reduce his long-term exposure to anticoagulation
Likely d/c later this morning after last dose sotalol and followup 12 lead.
followup at [facility] as scheduled
PREADMIT DATA:
He has a complex arrhythmia history.
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
but ultimately recurred and has been treated with sotalol with overall good symptom control regarding the atrial tachycardia.
He developed symptomatic bradycardia from AV block and underwent implantation of conduction system dual-chamber permanent pacemaker on November 02, 2023 (Medtronic left bundle branch pacing system).
He then developed progressive fatigue and dyspnea on exertion with pacemaker diagnostics demonstrating persistence of atrial fibrillation.
He then underwent PVI as well as ablation of extra PV triggers to help was a difficult case March 29, 2025.
He has subsequently recurred with symptomatic atrial tachycardia
Complicating medical history includes chronic iron deficiency anemia and malabsorption syndrome related to remote history of distal gastrectomy and gastrojejunal anastomosis. Subsequently he has had recurrent and at times severe GI bleeding
requiring blood transfusion. Due to recurrent GI bleeding maintaining anticoagulation has been difficult. Most recently he has tolerated Eliquis 5 mg twice daily with no major bleeding complications.
Progress Note - Machine Stapler
Subjective
Date of Service: May 17, 2025
Denies cp/palps/dyspnea
oob ambulating
groin site without pain
edema improved, good diuresis post lasix yesterday
Objective
Labs:
05/17/25 04:02
05/17/25 04:02
Labs
Hgb 10.7 g/dL (13.0-18.0) L 05/17/25 04:02
Hct 33.2 % (39.0-52.0) L 05/17/25 04:02
Plt Count 212 10^3/uL (130-400) 05/17/25 04:02
Sodium 134 mmol/L (135-145) L 05/17/25 04:02
Potassium 4.1 mmol/L (3.5-5.1) 05/17/25 04:02
BUN 20 mg/dl (9-20) 05/17/25 04:02
Creatinine 0.8 mg/dL (0.7-1.3) 05/17/25 04:02
Glucose 92 mg/dl (70-99) 05/17/25 04:02
Vital Signs and I&O:
Vital Signs
Temp Pulse Resp BP Pulse Ox
98.1 F 78 16 124/75 95
05/17/25 07:55 05/17/25 08:01 05/17/25 08:01 05/17/25 03:56 05/17/25 08:01
Vital Signs
Temp Pulse Resp BP Pulse Ox
98.1 F 78 16 124/75 95
05/17/25 07:55 05/17/25 08:01 05/17/25 08:01 05/17/25 03:56 05/17/25 08:01
Intake & Output
05/15/25 05/16/25 05/17/25 05/18/25
06:59 06:59 06:59 06:59
Output Total 1025 / 1025 600 / 600
Balance -1025 / -1025 -600 / -600
Physical Exam
Physical Exam
AAOx3, MAEE 5/5
S1 S2 no murmurs
CTA bilat, non labored
soft abd, + bs
right groin site without ht/bleeding, non tender
RLE w/1+ edema, LLE with trace edema, palpable pulses bilat
[2025-05-17] MEDS: PROTONIX 40 MG PO (08:25)
[2025-05-17] MEDS: OMNICEF 300 MG PO (08:25)
[2025-05-17] MEDS: MEDROL 4 MG PO (08:25)
[2025-05-17] MEDS: FLOMAX 0.4 MG PO (08:25)
[2025-05-17] MEDS: LEXAPRO 5 MG PO (08:25)
[2025-05-17] MEDS: ELIQUIS 5 MG PO (08:25)
[2025-05-17] MEDS: BETAPACE 160 MG PO (08:26)
--- NOTE | 2025-05-17 09:37 | W.DS.TRANS ---
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
-
Discharge Instructions:
Sleep Apnea Risk Intermediate
Discharge Diagnosis/Procedures Atrial Tachycardia/AFib, s/p ablation
Diet Low Cholesterol
Driving Restrictions No driving for 24 hours
Instructions:
Stand-Alone Forms: DC Instructions- Cath/EP Lab
Changes to Home Medications: Yes
Discharge Medications:
DC Medications w/original date entered in [employer]
multivitamin with minerals-ferrous sulfate 4.5 mg iron tablet (One Daily Multivitamins with Minerals) 1 tab PO DAILY Supplement 10/24/15
Lactobacillus rhamnosus GG 15 billion cell sprinkle capsule (Culturelle) 1 tab PO QPM Gastrointestinal Issue 09/27/20
Cold-Fx 1 tab PO DAILY PRN cold 09/04/21
minoxidil 5 % topical solution (Rogaine Extra Strength for Men) 1 dose topical DAILY 09/04/21
omeprazole 20 mg tablet,delayed release 20 mg PO BID Gastrointestinal Issue 11/02/23
apixaban 5 mg tablet (Eliquis) 5 mg PO BID Blood Clot Prevention/Tx 03/17/25
escitalopram oxalate 5 mg tablet (Lexapro) 5 mg PO DAILY Mental Health/Anxiety 03/17/25
latanoprost 0.005 % eye drops 1 drp ophthalmic (eye) HS Eye Condition 03/17/25
polyethylene glycol 3350 17 gram oral powder packet (Miralax) 17 g PO HS Constipation 03/17/25
rosuvastatin 20 mg tablet 20 mg PO HS High Cholesterol 03/17/25
simethicone 80 mg chewable tablet 80 - 160 mg PO HS Gastrointestinal Issue 03/17/25
tamsulosin 0.4 mg capsule 0.4 mg PO BID Urinary Issue 03/17/25
celecoxib 200 mg capsule (Celebrex) 200 mg PO DAILYPRN PRN inflammation 03/22/25
cyanocobalamin (vitamin B-12) 1,000 mcg/mL injection solution 1,000 mcg IM QMONTH Supplement 03/22/25
dicyclomine 10 mg capsule 10 mg PO DAILYPRN PRN dumping syndrome 03/22/25
ondansetron HCl 4 mg tablet 4 mg PO Q6H PRN nausea 03/22/25
pramipexole 0.125 mg tablet 0.0625 mg PO DAILYPRN PRN RLS 03/22/25
vardenafil 10 mg tablet 10 mg PO DAILY PRN ED 03/22/25
albuterol sulfate 90 mcg/actuation aerosol inhaler 2 puff inhalation QID Lung/Breathing Issues 05/15/25
cefdinir 300 mg capsule 300 mg PO DAILY Infection 05/15/25
docusate sodium 100 mg capsule (Colace) 100 mg PO DAILY PRN softner 05/15/25
methylprednisolone 4 mg tablet 4 mg PO DAILY Anti-Inflammatory 05/15/25
sennosides 8.6 mg tablet (Senokot) 8.6 mg PO DAILY PRN laxative 05/15/25
sodium di- and monophosphate-potassium phos monobasic 250 mg tablet (Phospho-Lilliam Neutral) 250 tab PO DAILY Supplement 05/15/25
zinc 50 mg capsule 50 mg PO DAILY PRN cold 05/15/25
zolpidem 5 mg tablet (Ambien) 5 mg PO HS PRN sleep 05/15/25
sotalol 160 mg tablet 160 mg PO BID #60 tabs 05/17/25
Home Medication Changes
DOSE INCREASE: Sotalol
Pending Results: No
--- NOTE | 2025-05-17 10:32 | PTCARENOTE ---
Pt is AOx3, no complaints of pain or discomfort. Independent OOB. SR on tele monitor, VSS. Plan for discharge later today. Call glaser within reach.
--- NOTE | 2025-05-17 10:47 | CM ---
Chart reviewed. Patient is independent of ADLS, lives with his in a 3 [address], 3 KIM, 0 DME. Plan is for the patient to return home. CM to follow
[2025-05-17 11:03] VITALS: BP 101/55
== END 2025-05-17 13:06 | disposition home or self-care (01) | DRG 274 ==
LOC: IVU 13:18
PROVIDERS: Nurse Practitioner; ADMITTING PHYSICIAN Internal Medicine Cardiovascular Disease; FAMILY PHYSICIAN Family Medicine
PROC: 02583ZF Destruction of Conduction Mechanism using Irreversible Electroporation, Percutaneous Approach (ICD-10-PCS; 2025-05-15)
PROC: 4B02XSZ Measurement of Cardiac Pacemaker, External Approach (ICD-10-PCS; 2025-05-15)
PROC: 02K83ZZ Map Conduction Mechanism, Percutaneous Approach (ICD-10-PCS; 2025-05-15)
PROC: B246ZZZ Ultrasonography of Right and Left Heart (ICD-10-PCS; 2025-05-15)
DX: I47.19 Other supraventricular tachycardia (principal); K90.9 Intestinal malabsorption, unspecified; D50.9 Iron deficiency anemia, unspecified; I48.19 Other persistent atrial fibrillation; I47.20 Ventricular tachycardia, unspecified; Z90.3 Acquired absence of stomach [part of]; Z79.01 Long term (current) use of anticoagulants; Z87.19 Personal history of other diseases of the digestive system; Z95.0 Presence of cardiac pacemaker
CPT/HCPCS: 80048; 83735; 85027; 85347; 93005; 93462; 93653; 94640; C1730; C1732; C1733; C1759; C1766; C1769; C1892; C1894; C2630

== ENCOUNTER 2025-05-20 20:58 | Day surgery (SDC) | payer BC, SELFPAY ==
[2025-05-20 17:04] VITALS: BP 111/66
--- NOTE | 2025-05-20 17:21 | EDRN ---
Discussed pt with dr. Yeung who gave verbal order for the US.
Spoke to tech who referred nurse to the certified low vision therapist tech since the test is specialized. reconciliation clerk sent tiger text to the [facility] who will perform the test. Pt and were informed.
--- NOTE | 2025-05-20 19:20 | PTCARENOTE ---
Rt Groin Vascular Study done. Results to follow. Vascular Surgeon was notified.
[2025-05-20 19:28] VITALS: BMI 24.1
[2025-05-20 19:36] VITALS: BP 120/77
--- NOTE | 2025-05-20 19:38 | ED.GENMED ---
History of Present Illness
General
Chief Complaint: Post Operative Problem(s)
Time Seen by Provider: 05/20/25 19:20
History of Present Illness
History of Present Illness:
79-year-old male referred to the ER by his trial paralegal for evaluation of painful swelling in his right groin. Patient underwent ablation with Dr. Grossman on Thursday. Patient has been taking all his medications as prescribed. He denies feeling
lightheaded or dizzy. He denies any other injury or trauma. He notes worsening swelling over the past several days. He took his last dose of Eliquis this morning.
Past History
Past History
ED Past Medical History: Arrthythmia, Cancer (bladder), GERD and Other (anemia)
ED Past Surgical History: Orthopedic and Urological
Social History
Tobacco: Non-smoker
Drug: None
Personal:
Living: with family
Employment: Retired
Family History
Family History: Other
Review of Systems
Review of Systems
Allergies reviewed?: Yes
Phy Exam
Physical Exam
Physical Exam:
Patient is awake, alert, appears in no acute distress, head is NCAT, PERRL, EOMI mucous membranes moist, conjunctiva pink, heart regular rate and rhythm without murmurs or ectopy, lungs are clear to auscultation without wheezes rales or rhonchi, no
JVD, abdomen is soft and nontender on palpation, right groin with palpable thick cord in the mid groin, no thrill, surrounding ecchymosis extending down to the knee medially, extremities without edema, GCS is 15, 2+ DP pulses present symmetric
bilateral feet
Course
Orders/Labs/Results
Orders:
Orders
05/20/25 17:13
US Groin (vascular exam) RT Urgent
Comment:
Reason For Exam: s/p ablation, swelling, pain
05/20/25 19:39
Lorazepam [Ativan] 1 mg PO NOW STA
05/20/25 20:05
IRAD CONSULT Urgent
Consulting Provider: Aquilino Aguirre
Was physician already notified: Yes
Procedure being ordered, including laterality if applicable: R femoral thrombin injection
Acknowledgement that appropriate orders are entered: Yes
05/20/25 20:30
Thrombin Topical (Bovine) [Thrombin-Jmi 5000 Units] 5,000 units .ROUTE .STK-MED ONE
Vital Signs
Initial and Last Documented VS:
Initial Vital Signs
Temp Pulse Resp BP Pulse Ox
98.4 F 66 22 111/66 96
05/20/25 17:04 05/20/25 17:04 05/20/25 17:04 05/20/25 17:04 05/20/25 17:04
Last Documented Vital Signs
Temp Pulse Resp BP Pulse Ox
97.7 F 63 17 110/54 97
05/20/25 20:26 05/20/25 21:01 05/20/25 21:01 05/20/25 21:01 05/20/25 20:26
MDM/Problems Addressed
Differential Diagnosis Includes:
Differential diagnosis considered but not limited to postprocedural hematoma, pseudoaneurysm along with other etiologies considered
Chronic conditions affecting care:
Long-term anticoagulation due to atrial fibrillation, arrhythmia, previous bladder cancer, previous GI bleeding
*Pulse Oximetry
SaO2: 96
Oxygen Mode of Delivery: Room air
Patient hypoxic: no
*Critical Care Note
Total Time (30-74mins, 75-104mins- exclusive of procedures): Not Applicable
Update Note
Update Note:
While the patient was in the waiting room I was able to coordinate with vascular surgery, Dr. Lilly, in order to obtain vascular imaging to rule out pseudoaneurysm status post procedure. That this study was performed and I was able to speak
with vascular surgery about the result who would recommend IR consultation for intervention tonight. I reviewed full patient presentation along with medication list and recent procedures with Dr. Aguirre, on-call for IR. He will address the
patient this evening. I discussed with him any potential need for labs or coags, he is declining any need for additional testing at the current time. Patient is reporting some moderate anxiety due to his recent multiple procedures. Will give oral
Ativan. is present at bedside and agrees with plan at current
2104: Pt treated by IR. They recommend bedrest for 1 hour and repeat US next week to follow up and insure continued closure.
2150: Patient resting comfortably, no complaints. 2+ DP pulses present symmetric bilateral feet. I discussed with patient present at bedside need for outpatient ultrasound next week. I discussed with them discharge instructions. They feel
comfortable plan and had no questions at the current time.
ED Attending Note
-
Portions of this chart may have been created with voice recognition software.� Occasional wrong word or��sound alike� substitutions may have occurred due to the inherent limitations of voice recognition software.
Discharge Plan
Departure
Patient Disposition: Home (Routine Discharge)
Date of Disposition: 05/20/25
Time of Disposition: 21:50
Patient with high blood pressure during this ER visit?: No
Discharge Problem:
Pseudoaneurysm following procedure
Interventions
Interventions:
*Risk Screen - Suicide Last Done: 05/20/25 17:04
*General Assessment Last Done: 05/20/25 17:04
*Neglect/Abuse Screening Last Done: 05/20/25 17:04
*ED- Fall Risk Assessment Last Done: 05/20/25 19:28
*ED COVID-19 Vaccine History Last Done: 05/20/25 19:28
*ED Influenza Vaccine History Last Done: 05/20/25 19:28
*Nursing Disposition Last Done: 05/20/25 20:53
ED-Skin Assessment Last Done: 05/20/25 19:28
[2025-05-20] MEDS: ATIVAN 1 MG PO (19:44)
[2025-05-20 20:00] VITALS: BP 126/69
[2025-05-20 20:26] VITALS: BP 128/67; BP_SYST 72
[2025-05-20 21:01] VITALS: BP 110/54
--- NOTE | 2025-05-20 21:06 | W.PN.UPDATE ---
Update Note
Progress Note Update
Right groin pseudoaneurysm injected with 1000 units thrombin with immediate cessation of flow. Distal pulses remain palpable.
Bedrest for 1 hour. Suggest repeat ultrasound in the next week to make sure pseudoaneurysm remains closed.
[2025-05-20 21:44] VITALS: BP 125/69
[2025-05-20] MEDS: ULTRAM 50 MG PO (22:40)
== END 2025-05-21 21:06 | disposition home or self-care (01) ==
LOC: SDS 20:58
PROVIDERS: ATTENDING PHYSICIAN Radiology Vascular & Interventional Radiology; EMERGENCY PHYSICIAN Emergency Medicine; FAMILY PHYSICIAN Internal Medicine
DX: I72.8 Aneurysm of other specified arteries (principal); T81.718A Complication of other artery following a procedure, not elsewhere classified, initial encounter; Y93.9 Activity, unspecified
CPT/HCPCS: 36002; 76942; 93926; 99284

== ENCOUNTER 2025-05-22 22:15 | Inpatient (IN) | payer BC, MEDICARE, SELFPAY ==
[2025-05-22 15:52] VITALS: BP 122/70
[2025-05-22 16:27] LABS: Hematocrit 35.8 % (39.0-52.0); Hemoglobin 11.7 g/dL (13.0-18.0); Mean Corp Hgb Conc. 32.7 g/dL (33.0-37.0); Mean Corpuscular Volume 86.3 fL (80.0-94.0); Nucleated Red Blood Cells % 0 % (-); Platelet Count 250 10^3/uL (130-400); Red Cell Dist. Width 16.5 % (11.5-14.5)
[2025-05-22 16:39] LABS: Blood Urea Nitrogen 14 mg/dl (9-20); Calcium 8.8 mg/dl (8.4-10.2); Carbon Dioxide 23 mmol/L (22-30); Chloride 102 mmol/L (98-107); Glucose 113 mg/dl (70-99); Potassium 4.6 mmol/L (3.5-5.1); Sodium 130 mmol/L (135-145); eGFR > 60.00
--- NOTE | 2025-05-22 19:53 | ED.GENMED ---
History of Present Illness
General
Chief Complaint: Abdominal Pain
Source: patient
Exam Limitations: none
Time Seen by Provider: 05/22/25 19:39
History of Present Illness
History of Present Illness:
Patient with an ablation and mapping about a week ago. Had issues with swelling of the right groin. Had a thrombin injection for pseudoaneurysm 2 days ago. Returns today after ultrasound showed a hematoma and pseudoaneurysm. Patient notes
decreased swelling at the site no fever or chills. No cough or shortness of breath.
Past History
Past History
ED Past Medical History: Arrthythmia, Cancer (bladder), GERD and Other (anemia)
ED Past Surgical History: Cardiac, Orthopedic and Urological
Social History
Tobacco: Non-smoker
Drug: None
Personal:
Living: with family
Employment: Retired
Family History
Family History: Other
Review of Systems
Review of Systems
All Other Systems: Not applicable
Constitutional: Denies fever
Respiratory: Reports no symptoms
Cardiac: Reports no symptoms
ABD/GI: Reports no symptoms
Phy Exam
Physical Exam
Physical Exam:
GENERAL: Alert and oriented in no apparent distress
EYE: Orbits normal.
NECK: Supple
CARDIAC: Regular rate and rhythm without any obvious murmurs.
LUNGS: Clear breath sounds,normal
ABDOMEN: Soft, without focal tenderness or distention
Right groin: Mild swelling with palpable pulsatile swelling. Large area of ecchymosis that extends to the mid thigh and surrounding the right groin into the scrotum. No drainage no erythema
NEUROLOGICAL: Alert and oriented , grossly non-focal
SKIN: Warm and dry, no rash or lesion, no discoloration, skin intact.
MUSCULOSKELETAL: No edema,no deformity.Good color
PSYCH: Normal and appropriate interaction.
Course
Orders/Labs/Results
Orders:
Orders
05/22/25 16:09
Ct Cta A/P W/Wo Urgent
Reason For Exam: to mid thigh... pseudoaneurysm
BMP [Basic Metabolic Panel] Urgent
Complete Blood Count/With Diff Urgent
05/22/25 21:20
Admit/Transfer Patient As Directed
Co-Sign Provider:
Level of Care: Inpatient admission
Assign to:: IVU
Physician / Group: Dr. Cabezas
Diagnosis: Pseudoaneurysm/hematoma RT groin
Reason for Hospitalization: Pseudoaneurysm/hematoma RT groin
Expected length of stay greater than two midnights?: Yes
ELOS- Estimated Length of Stay in days: 3
I certify the patient meets the requirements for IP care: Yes
05/22/25 21:23
PRN Pain Medication Management As Directed
May give lesser potent ordered pain med per pt: Yes
preference::
Protocol:: Medication orders for pain may be administered in a
manner that supports deferring to patient preference
when the pt is:
- Requesting an ordered lesser potent pain medication.
Least to most potent pain medications are defined
as: acetaminophen < NSAID < tramadol < opioids
(morphine, oxycodone, hydromorphone).
- Requesting a lesser dose of the same medication IF
ORDERED.
- Requesting a less intrusive route of administration
if both routes are prescribed by the provider (PO <
IV).
05/22/25 21:31
Code Status As Directed
Resuscitation Status: Full Code
05/22/25 22:37
Bisacodyl [Dulcolax] 10 mg RECTAL [id number] PRN
Polyethylene Glycol Powder [Miralax] 17 grams PO DAILYPRN PRN
05/22/25 22:37
Vascular Surgery Consult Routine
Consulting Provider: Modesto Rodriguez III
Was physician already notified: Yes
Reason for consult: Pseudoaneurysm/hematoma RT groin
Activity As Directed
Activity Level: Bedrest
Pneumatic Compression Sleeves As Directed
Type: Knee high
Vital Signs As Directed
Frequency: Per unit guidelines
DX Deep Vein Thrombosis Video Routine
05/23/25 05:07
Basic Metabolic Panel IN AM
Complete Blood Count/No Diff IN AM
Magnesium IN AM
Prothrombin Time IN AM
05/23/25 Breakfast
NPO
Allow oral meds: Yes
Allow clear liquids: No
Abnormal Lab Results
05/22/25
16:09
WBC 11.5 H 10^3/uL
(4.8-10.8)
RBC 4.15 L 10^6/uL
(4.70-6.10)
Hgb 11.7 L g/dL
(13.0-18.0)
Hct 35.8 L %
(39.0-52.0)
MCHC 32.7 L g/dL
(33.0-37.0)
RDW 16.5 H %
(11.5-14.5)
Abs Immat Gran (auto) 0.1 H 10^3/uL
(0-0.05)
Absolute Neuts (auto) 8.1 H 10^3/uL
(1.4-6.5)
Absolute Monos (auto) 1.6 H 10^3/uL
(0.1-0.6)
Immature Gran % 0.8 H %
(0-0.5)
Lymphocytes % 11.7 L %
(20.5-51.1)
Monocytes % 14.0 H %
(1.7-9.3)
Sodium 130 L mmol/L
(135-145)
Glucose 113 H mg/dl
(70-99)
11/03/25 16:09
05/22/25 16:09
Vital Signs
Initial and Last Documented VS:
Initial Vital Signs
Temp Pulse Resp BP Pulse Ox
97.9 F 71 18 122/70 96
05/22/25 15:52 05/22/25 15:52 05/22/25 15:52 05/22/25 15:52 05/22/25 15:52
Last Documented Vital Signs
Temp Pulse Resp BP Pulse Ox
98.4 F 63 16 122/65 95
05/24/25 04:00 05/23/25 23:00 05/24/25 04:00 05/23/25 23:30 05/24/25 04:00
MDM/Problems Addressed
Differential Diagnosis Includes:
Patient is remaining clinically stable. Site although ecchymotic appears stable. Reviewed CT findings with vascular surgery and with the primary EP natural resources extension educator. Admission, hold anticoagulation. NPO. Bedrest. Plan for OR tomorrow patient not
describing significant respiratory symptoms although subpleural airspace consolidation in both lower lobes noted by CT
*Radiology
Radiology exam reviewed: radiology read reviewed (1.7 cm pseudoaneurysm mild hemorrhage. 5.3 cm acute hematoma moderate subpleural airspace consolidation both lower lobes)
*Pulse Oximetry
SaO2: 96
Oxygen Mode of Delivery: Room air
Patient hypoxic: no
*Critical Care Note
Total Time (30-74mins, 75-104mins- exclusive of procedures): Not Applicable
Data Reviewed
Review of Other/Old Records Reveals: Labs, Records, Radiology Studies, Testing and Discharge Summary
ED Attending Note
-
Portions of this chart may have been created with voice recognition software.� Occasional wrong word or��sound alike� substitutions may have occurred due to the inherent limitations of voice recognition software.
Discharge Plan
Departure
Patient Disposition: Admit
Date of Disposition: 05/22/25
Time of Disposition: 20:00
Presentation/result/management discussed w/ accepting MD/DO: EP cardiology/vascular hope
Discharge Problem:
Pseudoaneurysm/hematoma right groin, Recent cardiac mapping/ablation, Subpleural consolidations both lung base
Interventions
Interventions:
*Risk Screen - Suicide Last Done: 05/22/25 22:26
*General Assessment Last Done: 05/22/25 22:06
*Neglect/Abuse Screening Last Done: 05/22/25 20:00
*ED- Fall Risk Assessment Last Done: 05/22/25 19:59
*ED COVID-19 Vaccine History Last Done: 05/22/25 19:59
*ED Influenza Vaccine History Last Done: 05/22/25 19:59
*Nursing Disposition Last Done: 05/22/25 22:06
UF-Vstxcn-Dswzonppin Assessment Last Done: 05/22/25 19:57
Discharge Date and Time
Discharge Date/Time: 05/22/25 22:10
[2025-05-22 19:55] VITALS: BP 107/66
[2025-05-22 19:59] VITALS: BMI 23.4
--- NOTE | 2025-05-22 20:45 | HPS.HSE ---
Family Physician
-
Family Physician: NOT KNOW UNKNOWN - PT DOES
Chief Complaint
-
Post operative problems
History of Present Illness
a 79 years old male present in ER for RT groin pain/ swelling with ecchymosis to RT groin area and inner thigh that extended to the knee. Patient had ablation and mapping one week ago. Per patient swelling RT groin was noted post procedure and he
had a thrombin injection for pseudoaneurysm 2 days ago. Today he came back for increasing the ecchymosis and pain that describe as aching/discomfort on the area. Ultrasound showed a hematoma and pseudoaneurysm. Denies sob/ chest pain or any other
symptoms.
Medical History
Past Medical History
Past Medical History: Reports Arrhythmia, Cancer (bladder) and Hypercholesterolemia
Past Surgical History: Reports Bowel Resection (gastric resection with vagotomy), Cardiac, Cholecystectomy and Orthopedic
Social History
Tobacco: Non-smoker
Alcohol: None
Drug: None
Personal:
Living: With Family
Employment: Retired
Family History
Family History: Not pertinent
Allergies / Home Medications
Allergies reflects when Allergies were last updated in [employer].
Home Medications with original date entered in [employer]
Allergy/Medication List:
Patient Allergies
Allergy/AdvReac Type Severity Reaction Status Date / Time
sildenafil Allergy Unknown Unknown Verified 05/22/25 15:52
tadalafil Allergy Unknown Unknown Verified 05/22/25 15:52
ampicillin Allergy lips, Verified 05/22/25 15:52
throats,
tongue go
numb
ciprofloxacin Allergy 'interfers Verified 05/22/25 15:52
with the
pacemaker'
cyclobenzaprine Allergy Nausea Verified 05/22/25 15:52
fentanyl AdvReac constipatio Verified 05/22/25 15:52
n
hyoscyamine (From [employer]) AdvReac constipatio Verified 05/22/25 15:52
n
methenamine (From [employer]) AdvReac constipatio Verified 05/22/25 15:52
n
methylene blue (From [employer]) AdvReac constipatio Verified 05/22/25 15:52
n
salicylates (From [employer]) AdvReac constipatio Verified 05/22/25 15:52
n
sodium phosphate (From AdvReac constipatio Verified 05/22/25 15:52
[employer]ribel) n
Home Medications Table - record
�Medication �Instructions �Recorded �Confirmed
multivitamin with minerals-ferrous 1 tab PO DAILY Supplement 10/24/15 05/22/25
sulfate 4.5 mg iron tablet (One
Daily Multivitamins with Minerals)
Lactobacillus rhamnosus GG 15 1 tab PO QPM Gastrointestinal Issue 09/27/20 05/22/25
billion cell sprinkle capsule
(Culturelle)
Cold-Fx 1 tab PO DAILY PRN cold 09/04/21 05/22/25
minoxidil 5 % topical solution 1 dose topical DAILY 09/04/21 05/22/25
(Rogaine Extra Strength for Men)
omeprazole 20 mg tablet,delayed 20 mg PO BID Gastrointestinal Issue 11/02/23 05/22/25
release
apixaban 5 mg tablet (Eliquis) 5 mg PO BID Blood Clot 03/17/25 05/22/25
Prevention/Tx
escitalopram oxalate 5 mg tablet 5 mg PO DAILY Mental Health/Anxiety 03/17/25 05/22/25
(Lexapro)
latanoprost 0.005 % eye drops 1 drp ophthalmic (eye) HS Eye 03/17/25 05/22/25
Condition
polyethylene glycol 3350 17 gram 17 g PO HS Constipation 03/17/25 05/22/25
oral powder packet (Miralax)
rosuvastatin 20 mg tablet 20 mg PO HS High Cholesterol 03/17/25 05/22/25
simethicone 80 mg chewable tablet 80 - 160 mg PO HS Gastrointestinal 03/17/25 05/22/25
Issue
tamsulosin 0.4 mg capsule 0.4 mg PO BID Urinary Issue 03/17/25 05/22/25
celecoxib 200 mg capsule (Celebrex) 200 mg PO DAILYPRN PRN inflammation 03/22/25 05/22/25
cyanocobalamin (vitamin B-12) 1,000 mcg IM QMONTH Supplement 03/22/25 05/22/25
1,000 mcg/mL injection solution
dicyclomine 10 mg capsule 10 mg PO DAILYPRN PRN dumping 03/22/25 05/22/25
syndrome
ondansetron HCl 4 mg tablet 4 mg PO Q6H PRN nausea 03/22/25 05/22/25
pramipexole 0.125 mg tablet 0.0625 mg PO DAILYPRN PRN RLS 03/22/25 05/22/25
vardenafil 10 mg tablet 10 mg PO PRN PRN ED 03/22/25 05/22/25
albuterol sulfate 90 mcg/actuation 2 puff inhalation QID 05/15/25 05/22/25
aerosol inhaler Lung/Breathing Issues
cefdinir 300 mg capsule 300 mg PO DAILY Infection 05/15/25 05/22/25
docusate sodium 100 mg capsule 100 mg PO DAILY PRN softner 05/15/25 05/22/25
(Colace)
sennosides 8.6 mg tablet (Senokot) 8.6 mg PO DAILY PRN laxative 05/15/25 05/22/25
sodium di- and 250 tab PO DAILY Supplement 05/15/25 05/22/25
monophosphate-potassium phos
monobasic 250 mg tablet
(Phospho-Lilliam Neutral)
zolpidem 5 mg tablet (Ambien) 5 mg PO HS PRN sleep 05/15/25 05/22/25
sotalol 160 mg tablet 160 mg PO BID #60 tabs 05/17/25 05/22/25
Review of Systems
-
A 12 point ROS was completed and negative except as noted: Yes
Respiratory: Reports No Symptoms
Cardiac: Reports Other (ecchymosis to RT groin, RT inner thigh extended to the knee post ablation)
Physical Exam
Vital Signs
Vital Signs
Temp Pulse Resp BP Pulse Ox
98.1 F 62 16 107/66 96
05/22/25 19:55 05/22/25 19:55 05/22/25 19:55 05/22/25 19:55 05/22/25 19:58
Physical Exam
General: No Apparent Distress
Respiratory: Clear
Cardiac: Regular Rhythm and Other (RT groin with palpable pulsating swelling, ecchymosis to RT groin, inner side of thigh extended to the knee)
Musculoskeletal: No Edema
Neuro: Awake and AO x 3
Laboratory Results
-
05/22/25 16:09
05/22/25 16:09
Impression/Plan
-
Groin ultrasound shows
Thrombosed pseudoaneurysm following thrombin injection on 05/20/25. The thrombosed pseudoaneurysm cavity measures 3 cm x 1 cm x 2.7 cm. Some residual flow is identified at the base of the pseudoaneurysm neck adjacent to the common femoral artery. The
common femoral artery, profunda femoral artery and proximal superficial femoral artery are patent with multiphasic waveforms.
Abd/PLVs CT shows
There is a 0.8 x 1.5 x 1.7 cm pseudoaneurysm arising from the anterior wall of the right common femoral artery surrounded by a mild amount of fluid and hemorrhage. There is no CTA evidence for acute active extravasation of contrast from the
pseudoaneurysm to suggest acute active arterial hemorrhage. There is a high attenuation hematoma in the subcutaneous fat of the anterior right groin anterior to the pseudoaneurysm measuring 2.1 x 4.1 x 5.3 cm in AP, transverse, and craniocaudal
dimensions.
IMPRESSION:
RT groin pseudoaneurysm/hematoma
PLAN:
-Admit to IVU/ Cardiology DCA
-Recommendation per cardiology (hold Gwendolyn, jomar, NPO).
-vascular surgery consult
-Neurovascular check q4hrs
SVT
on sotalol
HLD
On Rosuvastatin
DVT prophylaxis SCDs
Code status Full code
[2025-05-22 22:06] VITALS: BP 117/65
[2025-05-22 22:22] VITALS: BP 113/72
[2025-05-22 22:36] VITALS: BMI 23.4
[2025-05-22 23:40] VITALS: BP 115/71
[2025-05-22] MEDS: AMBIEN 5 MG PO (23:56)
[2025-05-22] MEDS: BETAPACE 160 MG PO (23:56)
[2025-05-22] MEDS: CRESTOR 20 MG PO (23:56)
[2025-05-23] VITALS (15 sets, daily range): BP systolic 0–127; BP diastolic 56–76
[2025-05-23] MEDS: MIRAPEX 0.125 MG PO (00:29)
[2025-05-23] MEDS: MIRALAX 17 GRAMS PO (00:30)
[2025-05-23 05:23] LABS: Hematocrit 33.3 % (39.0-52.0); Hemoglobin 11.0 g/dL (13.0-18.0); Mean Corp Hgb Conc. 33.0 g/dL (33.0-37.0); Mean Corpuscular Volume 88.8 fL (80.0-94.0); Platelet Count 205 10^3/uL (130-400); Red Cell Dist. Width 16.4 % (11.5-14.5)
[2025-05-23 05:37] LABS: INR 1.19; PT 15.4 Sec (11.4-14.6)
[2025-05-23 05:45] LABS: Blood Urea Nitrogen 14 mg/dl (9-20); Calcium 8.6 mg/dl (8.4-10.2); Carbon Dioxide 25 mmol/L (22-30); Chloride 104 mmol/L (98-107); Estimated Creatinine Clearance 75 ml/min; Glucose 100 mg/dl (70-99); Magnesium 2.2 mg/dl (1.6-2.3); Potassium 4.5 mmol/L (3.5-5.1); Sodium 133 mmol/L (135-145); eGFR > 60.00
--- NOTE | 2025-05-23 08:52 | CON.VAS ---
Addendum entered and electronically signed by Modesto Rodriguez III, MD 05/23/25 20:30:
This patient was seen and examined in collaboration with ROGELIO Atkinson. I agree with the history and physical exam as well as the assessment and plan. I have the following additions:
Recent EP procedure with right groin arterial access
Pseudoaneurysm identified over the weekend here at [facility] with thrombin injection on May 20
Had continued swelling and discomfort in the right groin
Cross-sectional imaging demonstrates active extravasation from the right common femoral artery
I personally reviewed the CTA.
I do not feel the pseudoaneurysm is suitable for repeat injection and I am recommending open repair
Technical aspects of this procedure were discussed with him in detail. The benefits and rationale for this approach were discussed with him in detail. Operative risks were discussed with him in detail including but not limited to heart attack,
stroke, bleeding, infection, wound healing complications.
He expressed a clear understanding of our conversation and agrees to proceed with surgery as detailed above.
Signed:
Modesto Rodriguez III, MD
Vascular Surgery
[facility]
Original Note:
Consultation
Consultation Request
Date/Time Consultation Performed: 05/23/25 0800
Requesting Provider: Cardiology
Performing Provider: Maryana Fenton NEWS TECHNICAL DIRECTOR-C for Modesto Rodriguez III, MD
Reason for Consultation: Right groin pseudoaneurysm with hematoma
Medical History
-
Chief Complaint: Right groin swelling
History of Present Illness:
This is a 79-year-old male with significant past medical history for Kidney stone, osteoporosis, iron deficiency anemia, supraventricular tachycardia, recurrent enterococcal epididymitis, vitamin B12 deficiency, chronic EBV, diverticulitis,
hyperlipidemia, preeti-tachy syndrome, pacemaker who presented to [facility] ED on 06/18/2025 with reports of worsening right groin swelling following SVT mapping and ablation with a pacemaker interrogation and reprogramming on 05/15/2025 with
[facility]. He was subsequently discharged on 05/17/2025 and then well at home noticed increased swelling at right groin puncture site prompting ED evaluation on 05/20/2025, ultrasound obtained in ED was positive for pseudoaneurysm arising from the
right common femoral vein and patient was sent to IR for thrombin injection which was successful. He was discharged home following procedure. On 05/22/2025 he noted again reoccurring swelling at right groin prompting second ED evaluation. Repeat
ultrasound was obtained that did showed thrombosed pseudoaneurysm at the vein but some residual flow was identified at the base of the pseudoaneurysm adjacent to the common femoral artery, prompting vascular consultation. Patient endorses that he
is having increased pain at right groin puncture site and worsening swelling.
Past Medical History
Past Medical History: Other (Kidney stone, osteoporosis, iron deficiency anemia, supraventricular tachycardia, recurrent enterococcal epididymitis, vitamin B12 deficiency, chronic EBV, diverticulitis, hyperlipidemia, preeti-tachy syndrome, pacemaker)
Past Surgical History: Other (Cholecystectomy, permanent pacemaker implant, esophageal dilatation, right knee ACL, bilateral cataracts, radical B2 gastric resection)
Social History
Tobacco: Non-Smoker
Allergies / Home Medications
Allergy/AdvReac Type Severity Reaction Status Date / Time
sildenafil Allergy Unknown Unknown Verified 05/22/25 15:52
tadalafil Allergy Unknown Unknown Verified 05/22/25 15:52
ampicillin Allergy lips, Verified 05/22/25 15:52
throats,
tongue go
numb
ciprofloxacin Allergy 'interfers Verified 05/22/25 15:52
with the
pacemaker'
cyclobenzaprine Allergy Nausea Verified 05/22/25 15:52
fentanyl AdvReac constipatio Verified 05/22/25 15:52
n
hyoscyamine (From Uribel) AdvReac constipatio Verified 05/22/25 15:52
n
methenamine (From Uribel) AdvReac constipatio Verified 05/22/25 15:52
n
methylene blue (From Uribel) AdvReac constipatio Verified 05/22/25 15:52
n
salicylates (From Uribel) AdvReac constipatio Verified 05/22/25 15:52
n
sodium phosphate (From AdvReac constipatio Verified 05/22/25 15:52
Uribel) n
�Medication �Instructions �Recorded �Confirmed �Type
multivitamin with minerals-ferrous 1 tab PO DAILY Supplement 10/24/15 05/22/25 History
sulfate 4.5 mg iron tablet (One
Daily Multivitamins with Minerals)
Lactobacillus rhamnosus GG 15 1 tab PO QPM Gastrointestinal Issue 09/27/20 05/22/25 History
billion cell sprinkle capsule
(Culturelle)
Cold-Fx 1 tab PO DAILY PRN cold 09/04/21 05/22/25 History
minoxidil 5 % topical solution 1 dose topical DAILY 09/04/21 05/22/25 History
(Rogaine Extra Strength for Men)
omeprazole 20 mg tablet,delayed 20 mg PO BID Gastrointestinal Issue 11/02/23 05/22/25 History
release
apixaban 5 mg tablet (Eliquis) 5 mg PO BID Blood Clot 03/17/25 05/22/25 History
Prevention/Tx
escitalopram oxalate 5 mg tablet 5 mg PO DAILY Mental Health/Anxiety 03/17/25 05/22/25 History
(Lexapro)
latanoprost 0.005 % eye drops 1 drp ophthalmic (eye) HS Eye 03/17/25 05/22/25 History
Condition
polyethylene glycol 3350 17 gram 17 g PO HS Constipation 03/17/25 05/22/25 History
oral powder packet (Miralax)
rosuvastatin 20 mg tablet 20 mg PO HS High Cholesterol 03/17/25 05/22/25 History
simethicone 80 mg chewable tablet 80 - 160 mg PO HS Gastrointestinal 03/17/25 05/22/25 History
Issue
tamsulosin 0.4 mg capsule 0.4 mg PO BID Urinary Issue 03/17/25 05/22/25 History
celecoxib 200 mg capsule (Celebrex) 200 mg PO DAILYPRN PRN inflammation 03/22/25 05/22/25 History
cyanocobalamin (vitamin B-12) 1,000 mcg IM QMONTH Supplement 03/22/25 05/22/25 History
1,000 mcg/mL injection solution
dicyclomine 10 mg capsule 10 mg PO DAILYPRN PRN dumping 03/22/25 05/22/25 History
syndrome
ondansetron HCl 4 mg tablet 4 mg PO Q6H PRN nausea 03/22/25 05/22/25 History
pramipexole 0.125 mg tablet 0.0625 mg PO DAILYPRN PRN RLS 03/22/25 05/22/25 History
vardenafil 10 mg tablet 10 mg PO PRN PRN ED 03/22/25 05/22/25 History
albuterol sulfate 90 mcg/actuation 2 puff inhalation QID 05/15/25 05/22/25 History
aerosol inhaler Lung/Breathing Issues
cefdinir 300 mg capsule 300 mg PO DAILY Infection 05/15/25 05/22/25 History
docusate sodium 100 mg capsule 100 mg PO DAILY PRN softner 05/15/25 05/22/25 History
(Colace)
sennosides 8.6 mg tablet (Senokot) 8.6 mg PO DAILY PRN laxative 05/15/25 05/22/25 History
sodium di- and 250 tab PO DAILY Supplement 05/15/25 05/22/25 History
monophosphate-potassium phos
monobasic 250 mg tablet
(Phospho-Lilliam Neutral)
zolpidem 5 mg tablet (Ambien) 5 mg PO HS PRN sleep 05/15/25 05/22/25 History
sotalol 160 mg tablet 160 mg PO BID #60 tabs 05/17/25 05/22/25 Rx
Review of Systems
-
History Source: Patient
All other systems: Negative unless noted
Vascular: Reports Other (Increased ecchymosis, swelling, and pain at right groin puncture site.)
Physical Exam
Vital Signs
Temp Pulse Resp BP Pulse Ox
98.7 F 61 18 115/61 96
05/23/25 08:50 05/23/25 05:01 05/23/25 08:50 05/23/25 05:01 05/23/25 08:50
Lab Results
05/23/25 05:07
05/23/25 05:07
Physical Exam
General: No Apparent Distress
HEENT: Normocephalic, Anicteric and Atraumatic
Respiratory: Non Labored Respirations
Cardiac: Negative JVD
GI: Soft, Non Tender and Non Distended
Genito-urinary: Other (Right groin with small pulsatile mass, ecchymosis, and evidence of small hematoma, all surrounding compartments of hematoma soft, no evidence of expanding hematoma)
Skin: Warm
Neuro: AO x 3
Pulses: Right Dorsalis Pedis: +1
Assessment / Plan
-
Assessment: 79-year-old male status post ablation with access via right femoral vein and artery puncture sites on 05/15/2025 with residual flow in the neck pseudoaneurysm following IR thrombin injection on 05/20/2025.
Plan:
Recommend urgent OR today for repair of pseudoaneurysm and hematoma washout of right groin with Dr. Modesto Rodriguez III
Home oral anticoagulation of Gwendolyn remains on hold
N.p.o. today
Patient seen and evaluated at bedside with Dr. Modesto Rodriguez III who agrees with above plan
[2025-05-23] MEDS: BETAPACE 160 MG PO ×2 (08:58→23:30)
[2025-05-23] MEDS: PROTONIX 40 MG PO ×2 (08:58→23:30)
[2025-05-23] MEDS: FLOMAX 0.4 MG PO ×2 (08:58→23:30)
[2025-05-23] MEDS: LEXAPRO 5 MG PO (10:05)
[2025-05-23] MEDS: TYLENOL 650 MG PO (10:05)
--- NOTE | 2025-05-23 13:28 | PTCARENOTE ---
patient is angry coming out to the hallway and asking about a menu. this RN reminded that the patient is NPO prior OR and provided with the menu. this RN told the patient to make his dinner selections and we would help with ordering prior the
kitchen closing so the patient could eat post op. patient said that he is sick and tired of staff telling him that everything has to be a doctors order and we are here doing nothing. when attempted to provide education, patient closed his ears with
his hands and demonstrated not wanting to listed. this RN left the patient's room
--- NOTE | 2025-05-23 13:31 | CM ---
Reviewed chart. Met with Mr. Bingham to review discharge plans. He states prior to admission he resides with his spouse in a three story home with three steps to enter. He states he has a full flight of steps to get to bedroom/full bathroom. He
states he has a powder room on the first floor. He states prior to admission he was independent with ambulation and adls. He states he has home 02 at home that he uses PRN. He states he has portable tanks here and the concentrator is in his home
in [place]. He states he has a prescription plan. Medical work-up in progress. The discharge plan is to return home with his spouse when medically stable.
--- NOTE | 2025-05-23 13:31 | CON.CAR ---
Consultation
Consultation Request
Date/Time Consultation Requested: May 23, 2025
Date/Time Consultation Performed: May 23, 2025
Requesting Provider: Vascular surgery
Performing Provider: Quang
Reason for Consultation: Pseudoaneurysm
Medical History
-
Chief Complaint: Pseudoaneurysm
History of Present Illness:
79-year-old male status post recent cardiac ablation involving arterial and venous access. He has extensive past medical history and cardiac ablation history plus a history of permanent pacing dual-chamber pacemaker. He was recently ablated last
week and his sotalol was increased to 160 mg twice daily and presents in sinus rhythm. He had increased pain and swelling in his right groin and was diagnosed with a right femoral artery pseudoaneurysm status post thrombin injection on May 20
with the neck and distal pouch of the pseudoaneurysm resolving but an area of communication between artery and soft tissue below the aneurysm neck and presents for vascular repair today. His oral anticoagulation is on hold.
Past Medical History
Past Medical History: Arrhythmias
Social History
Tobacco: Non-Smoker
Alcohol: None
Drug: None
Personal: Partner
Living: With Family
Employment: Employed
Allergies / Home Medications
Allergy/AdvReac Type Severity Reaction Status Date / Time
sildenafil Allergy Unknown Unknown Verified 05/22/25 15:52
tadalafil Allergy Unknown Unknown Verified 05/22/25 15:52
ampicillin Allergy lips, Verified 05/22/25 15:52
throats,
tongue go
numb
ciprofloxacin Allergy 'interfers Verified 05/22/25 15:52
with the
pacemaker'
cyclobenzaprine Allergy Nausea Verified 05/22/25 15:52
fentanyl AdvReac constipatio Verified 05/22/25 15:52
n
hyoscyamine (From Uribel) AdvReac constipatio Verified 05/22/25 15:52
n
methenamine (From Uribel) AdvReac constipatio Verified 05/22/25 15:52
n
methylene blue (From Uribel) AdvReac constipatio Verified 05/22/25 15:52
n
salicylates (From Uribel) AdvReac constipatio Verified 05/22/25 15:52
n
sodium phosphate (From AdvReac constipatio Verified 05/22/25 15:52
Uribel) n
�Medication �Instructions �Recorded �Confirmed �Type
multivitamin with minerals-ferrous 1 tab PO DAILY Supplement 10/24/15 05/22/25 History
sulfate 4.5 mg iron tablet (One
Daily Multivitamins with Minerals)
Lactobacillus rhamnosus GG 15 1 tab PO QPM Gastrointestinal Issue 09/27/20 05/22/25 History
billion cell sprinkle capsule
(Culturelle)
Cold-Fx 1 tab PO DAILY PRN cold 09/04/21 05/22/25 History
minoxidil 5 % topical solution 1 dose topical DAILY 09/04/21 05/22/25 History
(Rogaine Extra Strength for Men)
omeprazole 20 mg tablet,delayed 20 mg PO BID Gastrointestinal Issue 11/02/23 05/22/25 History
release
apixaban 5 mg tablet (Eliquis) 5 mg PO BID Blood Clot 03/17/25 05/22/25 History
Prevention/Tx
escitalopram oxalate 5 mg tablet 5 mg PO DAILY Mental Health/Anxiety 03/17/25 05/22/25 History
(Lexapro)
latanoprost 0.005 % eye drops 1 drp ophthalmic (eye) HS Eye 03/17/25 05/22/25 History
Condition
polyethylene glycol 3350 17 gram 17 g PO HS Constipation 03/17/25 05/22/25 History
oral powder packet (Miralax)
rosuvastatin 20 mg tablet 20 mg PO HS High Cholesterol 03/17/25 05/22/25 History
simethicone 80 mg chewable tablet 80 - 160 mg PO HS Gastrointestinal 03/17/25 05/22/25 History
Issue
tamsulosin 0.4 mg capsule 0.4 mg PO BID Urinary Issue 03/17/25 05/22/25 History
celecoxib 200 mg capsule (Celebrex) 200 mg PO DAILYPRN PRN inflammation 03/22/25 05/22/25 History
cyanocobalamin (vitamin B-12) 1,000 mcg IM QMONTH Supplement 03/22/25 05/22/25 History
1,000 mcg/mL injection solution
dicyclomine 10 mg capsule 10 mg PO DAILYPRN PRN dumping 03/22/25 05/22/25 History
syndrome
ondansetron HCl 4 mg tablet 4 mg PO Q6H PRN nausea 03/22/25 05/22/25 History
pramipexole 0.125 mg tablet 0.0625 mg PO DAILYPRN PRN RLS 03/22/25 05/22/25 History
vardenafil 10 mg tablet 10 mg PO PRN PRN ED 03/22/25 05/22/25 History
albuterol sulfate 90 mcg/actuation 2 puff inhalation QID 05/15/25 05/22/25 History
aerosol inhaler Lung/Breathing Issues
cefdinir 300 mg capsule 300 mg PO DAILY Infection 05/15/25 05/22/25 History
docusate sodium 100 mg capsule 100 mg PO DAILY PRN softner 05/15/25 05/22/25 History
(Colace)
sennosides 8.6 mg tablet (Senokot) 8.6 mg PO DAILY PRN laxative 05/15/25 05/22/25 History
sodium di- and 250 tab PO DAILY Supplement 05/15/25 05/22/25 History
monophosphate-potassium phos
monobasic 250 mg tablet
(Phospho-Lilliam Neutral)
zolpidem 5 mg tablet (Ambien) 5 mg PO HS PRN sleep 05/15/25 05/22/25 History
sotalol 160 mg tablet 160 mg PO BID #60 tabs 05/17/25 05/22/25 Rx
Review of Systems
-
All other systems: Negative unless noted
Physical Exam
Vital Signs
Temp Pulse Resp BP Pulse Ox
97.6 F 61 18 115/61 97
05/23/25 11:34 05/23/25 05:01 05/23/25 11:34 05/23/25 05:01 05/23/25 11:34
Lab Results
05/23/25 05:07
05/23/25 05:07
Physical Exam
General: Well Developed and Well Nourished
HEENT: Normocephalic
Respiratory: Clear
Cardiac: S1/S2, Regular Rhythm and Other (Right femoral arterial access site examined demonstrating a area of swelling in the inguinal region as well as the inner thigh there is no auscultative bruit and is slightly tender to palpation without any
bleeding at the time.)
Breast: Deferred by me
GI: Soft, Non Tender and Non Distended
Rectal: Deferred by Provider
Musculoskeletal: No Clubbing and No Cyanosis
Skin: Warm, Dry and Rash
Neuro: Awake, Alert and Oriented
Hematologic/Lymphatic: No Lymphadenopathy
Psych: Calm
Impression / Plan
-
PCP: Carlene Stewart MD
CDY: Clifton Grossman MD
IMPRESSION:
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
AFib, s/p PVI w/PF (03/29/2025)
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
Chronic Iron Deficiency Anemia
Malabsorption Syndrome
Prior distal gastrectomy/gastrojejunal anastomosis
Recurrent GIB, prior transfusions
PLAN:
Subsequently recurred w/symptomatic atrial tachycardia- now s/p SVT mapping and ablation, with PPM reprogrammed to include atrial preference pacing + ATP therapies for atrial arrhythmias and increased dose sotalol.
He presents in sinus rhythm
Plan is for vascular surgical repair on the right femoral arterial site. Proceed without further testing and can hold oral anticoagulation for as long as necessary
tele- AVPaced, no AT/AFib noted, 4bt run NSVT
Careful observation of volume status as he has had some diastolic heart failure symptoms in the past
Appreciate vascular surgery repair. Please maintain telemetry postoperatively. Please try to avoid QT prolonging agents if possible such as Zofran given sotalol use.
Data Reviewed
-
EKG: Tracing Personally Visualized and interpreted
Radiology: Report Reviewed by me
Medical Tests (Nuc Med, Echo etc): Report Reviewed by me
Labs: Labs Reviewed by me
Old Records: Reviewed
[2025-05-23] MEDS: VANCOCIN 200 IV (17:34)
[2025-05-23] MEDS: BACTROBAN 2% OINTMENT 1 APPLIC NASAL (17:34)
--- NOTE | 2025-05-23 19:20 | W.SUR.PREOP ---
Pre-Operative Surgical Note
-
I have examined this patient prior to the performance of the scheduled procedure.
The patient's condition is unchanged from the time of the current History and
Physical and the patient is able to undergo the scheduled procedure.
[2025-05-23 20:13] LABS: ACT-LR - POC 192 Seconds (116-155)
--- NOTE | 2025-05-23 20:31 | OR.RPT ---
Operative Report
Operative Report
Date of Operation: 05/23/2025
Pre Op Diagnosis: Right femoral artery pseudoaneurysm
Post Op Diagnosis: Right femoral artery pseudoaneurysm
Procedure: Right groin exploration with open repair of right common femoral artery pseudoaneurysm
Surgeon: Modesto Rodriguez III, MD
Edge Trimming Machine Operator: Chilo Magaña MD PGY2
Anesthesia: General
Complications: None
Estimated Blood Loss: 50 cc
History and Indications for Procedure: 79-year-old male with right common femoral artery pseudoaneurysm. Failed thrombin injection.
Procedure in Detail: Marco Antonio Bingham was correctly identified and placed supine on the operating table. After adequate induction of anesthesia his abdomen, pelvis and bilateral groins were prepped and draped in the usual sterile fashion. He
received preoperative antibiotics. A timeout procedure was performed with the nursing and anesthesia staff confirming the patient's identity as well as nature and laterality of the procedure.
I made a vertical incision over the right groin centered on the area of pulsatile induration. Using electrocautery and sharp dissection I identified the inguinal ligament. The common femoral artery was encircled with a vessel loop for proximal
control at the inguinal ligament. Systemic heparin was administered. We then continued dissection distally using electrocautery and blunt dissection. The pseudoaneurysm cavity was entered. Pulsatile bleeding was encountered. The proximal vessel
loop was secured. The defect in the common femoral artery was identified. This was more clearly exposed with sharp dissection. The hole in the common femoral artery was repaired primarily with interrupted 5-0 Prolene suture. Hemostasis was
achieved. The vessel loop was released. The repair was inspected closely and was hemostatic. There was a good pulse in the common femoral artery proximal and distal to the repair. Protamine was administered. The wound was irrigated with warm
saline solution. Hemostasis was achieved in the wound bed. A #10 BRE drain was left deep in the wound bed and was brought out through a separate stab incision at the skin. The BRE was secured at the skin exit site with a Nylon suture. The wound
was then closed in multiple layers. A sterile dressing was applied. The patient tolerated the procedure well was taken to the recovery room in good condition.
Attestation: I was present and responsible for the entire procedure
Signed:
Modesto Rodriguez III, MD
Vascular Surgery
[facility]
[2025-05-23] MEDS: MORPHINE SULFATE 4 MG IV ×2 (21:04→21:22)
[2025-05-23] MEDS: DILAUDID 0.5 MG IV (21:36)
[2025-05-23] MEDS: CRESTOR 20 MG PO (23:30)
[2025-05-24] VITALS (17 sets, daily range): BP systolic 87–119; BP diastolic 46–75; BMI 22.2
[2025-05-24] MEDS: AMBIEN 5 MG PO ×2 (01:57→22:22)
--- NOTE | 2025-05-24 03:09 | PTCARENOTE ---
pt returned post right groin surgery, Pt AAOx 4, VSS. Rt lower ext pulsed positive on Doppler, positive sensation and warm to touch. BRE drain with serosanguineous drainage. Rt groin firm and tender to touch with ecchymotic area marked. Pt c/o pain
6/10 but appears without any distress or discomfort. Pt was able to eat his dinner. Safety measures in place, call glaser within reach
[2025-05-24 06:21] LABS: Hematocrit 34.7 % (39.0-52.0); Hemoglobin 11.1 g/dL (13.0-18.0); Mean Corp Hgb Conc. 32.0 g/dL (33.0-37.0); Mean Corpuscular Volume 89.2 fL (80.0-94.0); Platelet Count 211 10^3/uL (130-400); Red Cell Dist. Width 16.3 % (11.5-14.5)
[2025-05-24 06:46] LABS: Blood Urea Nitrogen 16 mg/dl (9-20); Calcium 8.6 mg/dl (8.4-10.2); Carbon Dioxide 21 mmol/L (22-30); Chloride 103 mmol/L (98-107); Estimated Creatinine Clearance 86 ml/min; Glucose 133 mg/dl (70-99); Magnesium 2.0 mg/dl (1.6-2.3); Potassium 4.8 mmol/L (3.5-5.1); Sodium 131 mmol/L (135-145); eGFR > 60.00
--- NOTE | 2025-05-24 07:00 | PTCARENOTE ---
report received from previous RN at change of shift. Pt AAOX3. reports pain controlled at this time. right DP pulse weakly palpable, confirmed via doppler. right groin with aquacel intact, small amount of old drainage. BRE drain with sangious
drainage. AV paced on telemetry heart rate 60s. pt on room air, lung sounds clear. active bowel sounds. aguayo draining clear ousmane urine. see worklist for full nursing assessment. vascular surgery in to round on pt- aguayo to be removed today and OOB
to ambulate.
[2025-05-24] MEDS: BETAPACE 160 MG PO ×2 (08:47→19:55)
[2025-05-24] MEDS: LEXAPRO 5 MG PO (08:47)
[2025-05-24] MEDS: PROTONIX 40 MG PO ×2 (08:47→19:55)
[2025-05-24] MEDS: FLOMAX 0.4 MG PO ×2 (08:47→19:55)
--- NOTE | 2025-05-24 09:04 | W.PN.VS ---
Addendum entered and electronically signed by Alex Rooney MD 05/24/25 14:43:
Seen and examined with STACIA Fenton earlier this a.m. Agree with findings as noted below. Right groin dressing clean dry and intact. No hematoma. Foot warm with palpable pedal pulse. Plan/as discussed and noted below.
Original Note:
Today's Communication / Plan
-
Patient seen and examined at bedside with Dr. Alex Rooney, below plan reviewed with attending.
Assessment/Plan
-
Assessment: 79-year-old male POD #1 right groin exploration with open repair of right common femoral artery pseudoaneurysm
Plan:
Discontinue Rodriguez catheter
Continue BRE drain
Continue documentation of intake and output of BRE drain fluid
From a vascular surgical perspective can initiate anticoagulation via heparin infusion if felt strongly to do so today from a cardiology standpoint
Continue neurovascular checks
Can get out of bed and ambulate today
Subjective Data
-
Date of Service: May 24, 2025
Patient seen and examined at bedside, offers no complaints. Reports well-managed postoperative pain.
Objective Data
-
Vital Signs
Temp Pulse Resp BP Pulse Ox
97.9 F 82 18 119/74 98
05/24/25 07:43 05/24/25 08:47 05/24/25 07:43 05/24/25 08:47 05/24/25 07:43
Intake and Output
05/23/25 05/24/25 05/25/25
06:59 06:59 06:59
Intake Total 350 / 350
Output Total 180 / 180 400 / 400
Balance 170 / 170 -400 / -400
Intake:
Oral fluids 350 / 350
Output:
Drain Output (Total) 30 / 30
Right Hip Gabriel-Lopez 30 / 30
Urine, Rodriguez 150 / 150 400 / 400
Other:
Number of approximated MODERATE 5
amounts of urine
Lab Results
05/24/25 05:52
05/24/25 05:52
Calcium 8.6 mg/dl (8.4-10.2) 05/24/25 05:52
Magnesium 2.0 mg/dl (1.6-2.3) 05/24/25 05:52
Physical Exam
-
No apparent distress, resting in bed comfortably
No tachycardia
No dyspnea on room air
Abdomen nondistended and nontender
Right groin Aquacel dressing dry and intact, BRE drain with serosanguineous output, all surrounding compartments soft, no evidence of hematoma
Right DP palpable +2 and foot warm
Rodriguez catheter draining clear urine
--- NOTE | 2025-05-24 12:06 | CM ---
Chart reviewed. Patient is independent of ADLS, lives with his in a 3 STH, 3 KIM, occasional Home O2 PRN. Plan is for the patient to return home. CM to follow
--- NOTE | 2025-05-24 13:18 | PTCARENOTE ---
pt assisted OOB to chair with standby assist. pt ambulated to bathroom, voided very small amount. pt now resting in chair.
[2025-05-24] MEDS: TYLENOL 650 MG PO ×2 (13:27→22:14)
[2025-05-24] MEDS: ROXICODONE 5 MG PO ×2 (13:27→22:14)
--- NOTE | 2025-05-24 14:59 | W.PN.CARDCBS ---
Today's Communication / Plan
-
Resume Eliquis when hemostasis is assured.
Continue sotalol at current dose
BRE drain management as per vascular.
Impression / Plan
-
PCP: Carlene Stewart MD
CDY: Clifton Grossman MD
IMPRESSION:
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
AFib, s/p PVI w/PF (03/29/2025)
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
Chronic Iron Deficiency Anemia
Malabsorption Syndrome
Prior distal gastrectomy/gastrojejunal anastomosis
Recurrent GIB, prior transfusions
PLAN:
Right femoral pseudoaneurysm after EPS 05/15/2025 (arterial access for aortic cusp mapping).
Incompletely sealed with thrombin injection 05/21/2025
Underwent successful surgical vascular repair 05/23/2025
Resume Eliquis 5 mg twice daily when hemostasis is assured
Recurrent symptomatic supraventricular tachycardia
s/p SVT mapping and ablation, with PPM reprogrammed to include atrial preference pacing + ATP therapies for atrial arrhythmias and increased dose sotalol.
He has maintained sinus rhythm
Maintain sotalol 160 mg twice daily and current pacing parameters, stable corrected QT interval
Mild hypotension, asymptomatic. I am concerned he is a bit volume depleted.
500 cc normal saline bolus
Follow electrolytes, follow sodium.
If remains hyponatremic, consider medicine or renal consultation.
Tentative discharge either late tomorrow or the following day depending on BRE drainage management.
Discussed with vascular surgery.
Discussed with patient and all of his questions answered.
Progress Note - Auto Body Technician
Subjective
Date of Service: May 24, 2025
He tells me he feels fine. No discomfort at all while laying down but if he does try to sit up in bed he does have some mild right groin discomfort.
No chest pain palpitations or shortness of breath.
Objective
Labs:
05/24/25 05:52
05/24/25 05:52
Labs
Hgb 11.1 g/dL (13.0-18.0) L 05/24/25 05:52
Hct 34.7 % (39.0-52.0) L 05/24/25 05:52
Plt Count 211 10^3/uL (130-400) 05/24/25 05:52
PT 15.4 Sec (11.4-14.6) H 05/23/25 05:07
INR 1.19 05/23/25 05:07
Sodium 131 mmol/L (135-145) L 05/24/25 05:52
Potassium 4.8 mmol/L (3.5-5.1) 05/24/25 05:52
BUN 16 mg/dl (9-20) 05/24/25 05:52
Creatinine 0.7 mg/dL (0.7-1.3) 05/24/25 05:52
Glucose 133 mg/dl (70-99) H 05/24/25 05:52
Vital Signs and I&O:
Vital Signs
Temp Pulse Resp BP Pulse Ox
98.1 F 62 18 101/61 96
05/24/25 14:51 05/24/25 13:00 05/24/25 14:51 05/24/25 12:30 05/24/25 14:51
Vital Signs
Temp Pulse Resp BP Pulse Ox
98.1 F 62 18 101/61 96
05/24/25 14:51 05/24/25 13:00 05/24/25 14:51 05/24/25 12:30 05/24/25 14:51
Intake & Output
05/22/25 05/23/25 05/24/25 05/25/25
06:59 06:59 06:59 06:59
Intake Total 350 / 350 480 / 480
Output Total 180 / 180 755 / 755
Balance 170 / 170 -275 / -275
Physical Exam
Physical Exam
Well-appearing, no acute distress
Regular rate and rhythm normal S1 and S2, no S3 no S4 is grade 1/6 apical holosystolic murmur no rubs. PMI is normally placed
Lungs are clear to auscultation bilaterally without wheezes rales or rhonchi
Abdomen soft nontender nondistended with normoactive bowel sounds
BRE drain in place right femoral area
Distal extremities without clubbing cyanosis or edema, +2 pulses.
[2025-05-24] MEDS: NSS 500 IV (15:06)
[2025-05-24] MEDS: MIRALAX 17 GRAMS PO (22:14)
[2025-05-24] MEDS: MIRAPEX 0.125 MG PO (22:14)
[2025-05-24] MEDS: CRESTOR 20 MG PO (22:15)
--- NOTE | 2025-05-25 00:46 | PTCARENOTE ---
Pt. rec'd OOB in BR voiding, brushing teeth. VSS, AV paced on the monitor. Assisted back to bed. Right groin BRE dressing intact and draining without difficulty (15 ml SS fluid emptied); surgical antibacterial dressing intact with some old
drainage. Right upper leg ecchymotic, pedal pulse palpable and present by Doppler. Pt. resting quietly.
[2025-05-25 02:47] VITALS: BP 106/65
[2025-05-25 03:33] LABS: Hematocrit 32.4 % (39.0-52.0); Hemoglobin 10.9 g/dL (13.0-18.0); Mean Corp Hgb Conc. 33.6 g/dL (33.0-37.0); Mean Corpuscular Volume 85.0 fL (80.0-94.0); Platelet Count 235 10^3/uL (130-400); Red Cell Dist. Width 16.5 % (11.5-14.5)
[2025-05-25 07:01] VITALS: BP 114/65
--- NOTE | 2025-05-25 07:53 | W.PN.VS ---
Addendum entered and electronically signed by Alex Rooney MD 05/25/25 15:19:
Seen and examined with RAILROAD DINING CAR STEWARD/STEWARDESS earlier this a.m. Agree with findings and plan as discussed and noted below. At that time his groin exam was benign. Incision was clean dry and intact no hematoma. BRE was serosanguineous. Foot warm. Plan was as
discussed and noted below. While scrubbed in the operating room was informed that patient was having increasing pain in the right groin. Per our nurse practitioners, there was no change in his exam. CT angiogram had been ordered. I reviewed the
images personally myself. Reviewed the report as well. No significant findings. Nothing to explain increased pain. If drainage from BRE has decreased, likely will discontinue drain perhaps that will help with pain.
Original Note:
Today's Communication / Plan
-
Seen and assessed with Dr. Rooney
Assessment/Plan
-
Assessment: 79-year-old male POD #2 right groin exploration with open repair of right common femoral artery pseudoaneurysm
Plan:
Continue BRE drain for now
Continue documentation of intake and output of BRE drain fluid
Okay to resume Eliquis today
Out of bed/ambulate/PT/OT
Pain management
Okay for discharge from vascular surgery perspective
Subjective Data
-
Date of Service: May 25, 2025
Patient seen at bedside this a.m. with Dr. Rooney. Patient offers no complaints at this time. No events overnight.
Objective Data
-
Vital Signs
Temp Pulse Resp BP Pulse Ox
98.5 F 84 20 114/65 95
05/25/25 07:01 05/25/25 07:01 05/25/25 07:01 05/25/25 07:01 05/25/25 07:01
Intake and Output
05/24/25 05/25/25 05/26/25
06:59 06:59 06:59
Intake Total 350 / 350 2420 / 2420
Output Total 180 / 180 1430 / 1650 220 / 220
Balance 170 / 170 990 / 770 -220 / -220
Intake:
Oral fluids 350 / 350 1920 / 1920
IV fluids (Total) 500 / 500
BOLUS 500 / 500
Output:
Drain Output (Total) 20
Right Hip Gabriel-Lopez
Urine, Rodriguez 150 / 150 725 / 725
Urine, Voided 650 / 850 200 / 200
Other:
Number of approximated MODERATE 5
amounts of urine
Lab Results
05/25/25 02:55
05/24/25 05:52
Calcium 8.6 mg/dl (8.4-10.2) 05/24/25 05:52
Magnesium 2.0 mg/dl (1.6-2.3) 05/24/25 05:52
Physical Exam
-
No apparent distress, resting in bed comfortably
No tachycardia
No dyspnea on room air
Abdomen nondistended and nontender
Right groin Aquacel dressing removed, BRE drain with serosanguineous output, all surrounding compartments soft, no evidence of hematoma
Incision well approximated
Right DP palpable +2 and foot warm
[2025-05-25] MEDS: LEXAPRO 5 MG PO (08:16)
[2025-05-25] MEDS: PROTONIX 40 MG PO ×2 (08:16→20:36)
[2025-05-25] MEDS: FLOMAX 0.4 MG PO ×2 (08:16→20:37)
[2025-05-25] MEDS: BETAPACE 160 MG PO ×2 (08:16→20:35)
--- NOTE | 2025-05-25 10:01 | PN.CDI ---
CDI
- -
CDI:
Physician Documentation Request
Admit Date: 05/22/25 22:15
Dear Vascular Surgery,
Please review the following and provide your response in the progress notes.
Clinical Indicators:
Pt admitted with Right groin pseudoaneurysm with hematoma
Laboratory Tests
05/22/25 05/24/25
16:09 05:52
Sodium 130 L 131 L
05/24 received 500cc NSS bolus
Based on the above, could you clarify in the progress notes, the appropriate diagnosis, if significant, that supports the above abnormalities and additional evaluation, monitoring and/or treatment rendered:
Hyponatremia
Insignificant abnormal lab values
Other
Use of terms such as suspected, likely, concern for, or probable (associated with a specific diagnosis that is being evaluated, monitored, or treated as if it exists) are acceptable and can be coded in the inpatient setting, when documented at the
time of discharge.
Thank you,
Annie Navarro RN, BSN
CDI Specialist
[facility]
Please use your independent medical judgment in providing your response.
--- NOTE | 2025-05-25 10:10 | PN.CDI ---
CDI
- -
CDI:
Physician Documentation Request
Admit Date: 05/22/25 22:15
Dear Vascular Surgery Team,
Please review the following and provide your response in the progress notes.
Clinical Indicators:
Pt admitted with right groin pseudoaneurysm/hematoma
Pt home medication inclues Eliquis.
Home oral anticoagulation of Eliquis remains on hold
Please clarify the relationship between these conditions:
Yes, pseudoaneurysm/hematoma is related to/associated with/exacerbated by Eliquis.
No, pseudoaneurysm/hematoma is not related to/associated with/exacerbated by Eliquis.
Unable to determine
Other
Use of terms such as suspected, likely, concern for, or probable (associated with a specific diagnosis that is being evaluated, monitored, or treated as if it exists) are acceptable and can be coded in the inpatient setting, when documented at the
time of discharge.
Thank you,
Annie Navarro RN, BSN
CDI Specialist
[place] [facility]
Please use your independent medical judgment in providing your response.
[2025-05-25] MEDS: ROXICODONE 5 MG PO (10:31)
--- NOTE | 2025-05-25 10:44 | W.PN.CARDCBS ---
Addendum entered and electronically signed by Abiel Grossman MD 05/25/25 12:39:
Patient seen, interviewed and examined by me.
Well-appearing, no acute distress
Regular rate and rhythm with normal S1 and S2, no S3 no S4. There is a grade 1/6 apical holosystolic murmur and no rubs. PMI is normally placed.
Lungs are clear to auscultation bilaterally without wheezes rales or rhonchi.
Abdomen soft nontender nondistended with normoactive bowel sounds
BRE drain with minimal drainage at right groin. Incision is clean and dry with good wound apposition and no bleeding. There is surrounding ecchymosis.
Extremities show trace pretibial edema bilaterally no clubbing or cyanosis.
He remains in sinus rhythm (atrial paced) on antiarrhythmic drug therapy and tolerating well.
Eventually resume Eliquis when hemostasis is assured, likely within the next 24 to 48 hours.
Vascular assessment is ongoing and CT imaging is planned for today.
He reportedly had a bit of an outburst of frustration today. Psychiatry has been consulted.
Original Note:
Today's Communication / Plan
-
For CT scan per vascular
Psych consult
Resume Eliquis tonight pending results of CT scan
Impression / Plan
-
PCP: Carlene Stewart MD
CDY: Clifton Grossman MD
IMPRESSION:
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
AFib, s/p PVI w/PF (03/29/2025)
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
Chronic Iron Deficiency Anemia
Malabsorption Syndrome
Prior distal gastrectomy/gastrojejunal anastomosis
Recurrent GIB, prior transfusions
PLAN:
- Patient underwent PVI with pulsed field 03/29/2025, and subsequently underwent A. tach ablation including atrial preference pacing + ATP therapies for atrial arrhythmias 05/15/2025. He then presented back with right groin pain and was found to
have pseudoaneurysm
- Incompletely sealed with thrombin injection 05/21/2025
- Status post surgical vascular repair 05/23/25
- remains with significant sharp pain with any movement this morning. he began yelling in the room and becoming agitated. a code purple was called. he then did calm down and apologize. He was also upset earlier this morning when he was told by
vascular that he could go home. He reports significant history of medical anxiety and sees therapist twice weekly for this. he was agreeable to see psych in consult, placed. of note, he has BRE in place which is dangling as he walks. we discussed
placing in a pocket or we can pin it as suspect contributing to some of his discomfort. called vascular who came to evaluate patient, site felt to be stable. ordering CT scan.
- plan to resume eliquis tonight pending results of CT
- maintaining SR on review of tele. continue sotalol 160mg BID
- PT eval
- d/w nursing, nursing administration, vascular PA
Progress Note - Customer Sales Distributor
Subjective
Date of Service: May 25, 2025
Reports significant right groin pain with any movement
Objective
Labs:
05/25/25 02:55
05/24/25 05:52
Labs
Hgb 10.9 g/dL (13.0-18.0) L 05/25/25 02:55
Hct 32.4 % (39.0-52.0) L 05/25/25 02:55
Plt Count 235 10^3/uL (130-400) 05/25/25 02:55
PT 15.4 Sec (11.4-14.6) H 05/23/25 05:07
INR 1.19 05/23/25 05:07
Sodium 131 mmol/L (135-145) L 05/24/25 05:52
Potassium 4.8 mmol/L (3.5-5.1) 05/24/25 05:52
BUN 16 mg/dl (9-20) 05/24/25 05:52
Creatinine 0.7 mg/dL (0.7-1.3) 05/24/25 05:52
Glucose 133 mg/dl (70-99) H 05/24/25 05:52
Vital Signs and I&O:
Vital Signs
Temp Pulse Resp BP Pulse Ox
98.5 F 84 20 114/65 95
05/25/25 07:01 05/25/25 07:01 05/25/25 07:01 05/25/25 07:01 05/25/25 07:01
Vital Signs
Temp Pulse Resp BP Pulse Ox
98.5 F 84 20 114/65 95
05/25/25 07:01 05/25/25 07:01 05/25/25 07:01 05/25/25 07:01 05/25/25 07:01
Intake & Output
05/23/25 05/24/25 05/25/25 05/26/25
07:59 07:59 07:59 07:59
Intake Total 350 / 350 2420 / 2420
Output Total 580 / 580 1250 / 1250 400 / 400
Balance -230 / -230 1170 / 1170 -400 / -400
Physical Exam
Physical Exam
GEN: No distress, awake, alert, oriented x3. Agitated initially, yelling in room. Then later on became tearful and apologetic
HEENT: supple, anicteric, mmm, EOMI
LUNGS: CTA bilaterally, no wheezes/rales
CV: Reg, S1/S2, no murmur
ABD: soft, BS+, NT/ND
EXT: No cyanosis, clubbing, edema
NEURO: Gross non-focal
SKIN: Warm, pink, dry. No rash. Right groin site with BRE drain in place, and ecchymoses noted
--- NOTE | 2025-05-25 10:55 | W.PN.UPDATE ---
Update Note
Progress Note Update
CDI:
Physician Documentation Request
Admit Date: 05/22/25 22:15
Please review the following and provide your response in the progress notes.
Clinical Indicators:
Pt admitted with right groin pseudoaneurysm/hematoma
Pt home medication inclues Eliquis.
Home oral anticoagulation of Eliquis remains on hold
Please clarify the relationship between these conditions:
Unable to determine
CDI:
Physician Documentation Request
Admit Date: 05/22/25 22:15
Please review the following and provide your response in the progress notes.
Clinical Indicators:
Pt admitted with Right groin pseudoaneurysm with hematoma
Laboratory Tests
05/22/25 05/24/25
16:09 05:52
Sodium 130 L 131 L
05/24 received 500cc NSS bolus
Based on the above, could you clarify in the progress notes, the appropriate diagnosis, if significant, that supports the above abnormalities and additional evaluation, monitoring and/or treatment rendered:
Insignificant abnormal lab values
--- NOTE | 2025-05-25 11:35 | CM ---
Chart reviewed. Patient is independent of ADLS, lives with his in a 3 [address], 3 KIM, 0 DME. Patient has home O2 prn. Plan is for the patient to return home. CM to follow
[2025-05-25 11:36] VITALS: BP 111/62
--- NOTE | 2025-05-25 12:00 | W.PN.UPDATE ---
Update Note
Progress Note Update
Pt was requested to be transferred to the hospitalist service from cardiology service with current stable cardiac status but ongoing agitation.
Pt is a 79 yo M with PMH Arrhythmia, Cancer (bladder), Hypercholesterolemia, gastric resection with vagotomy, who was initially admitted for R groin pain, swelling with ecchymosis, following ablation and mapping one week GAMMA OPERATOR.
Groin ultrasound:
Thrombosed pseudoaneurysm following thrombin injection on 05/20/25. The thrombosed pseudoaneurysm cavity measures 3 cm x 1 cm x 2.7 cm. Some residual flow is identified at the base of the pseudoaneurysm neck adjacent to the common femoral artery. The
common femoral artery, profunda femoral artery and proximal superficial femoral artery are patent with multiphasic waveforms.
CT AP:
1. 1.7 cm PSEUDOANEURYSM arising from the anterior wall of the RIGHT COMMON FEMORAL ARTERY surrounded by mild hemorrhage.
2. 5.3 cm acute hematoma in the subcutaneous fat of the anterior right groin.
3. Severe diverticulosis in the descending and sigmoid colon.
4. Mild chronic bilateral renal disease.
5. 6 mm nonobstructing left intrarenal calculus.
6. Previous distal gastrectomy and gastrojejunal anastomosis.
7. Moderate enlargement of the prostate gland.
8. Mild hepatomegaly.
9. Small bilateral pleural effusions.
10. Moderate subpleural airspace consolidation in the lower lobes.
11. Small pericardial effusion.
A/P
# R groin thrombosed pseudoaneurysm
Incompletely sealed with thrombin injection 05/21/2025
s/p right groin exploration with open repair of right common femoral artery pseudoaneurysm by vascular on 05/23
Continue BRE drain until further directed by vascular
repeat CT angio ordered by vacular 05/25, follow up report
Eliquis to be resumed
Pain control with Tylenol and oxycodone PRN
PT OT eval
# Agitation with behavioral disturbance likely due to severe groin pain
Pt requesting pecan picker as he has had good discussion/relationship with pecan picker before
He currently declined Psych eval
# Arrhythmia
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
# AFib, s/p PVI w/PF (03/29/2025)
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
# Tachy-Pantera, s/p DC PPM w/LBBAP lead ([employer], 10/2023)
Cont sotalol 160mg BID
# HLD
On Rosuvastatin
# Chronic Iron Deficiency Anemia
# Malabsorption Syndrome
# Prior distal gastrectomy/gastrojejunal anastomosis
# Recurrent GIB, prior transfusions
DVT prophylaxis SCDs
Code status Full code
[2025-05-25 14:54] VITALS: BP 109/59
--- NOTE | 2025-05-25 16:20 | CHAP ---
Emotional and spiritual support provided as requested. Mr. Bingham shared the stories of multiple family member's deaths that he is grieving. This time of year is especially difficult as his son was sick and dying this time of year. He shared
deeply thoughtful reasons why he struggles with hospitalizations and medical care due to these losses. He also discussed his feelings regarding the code purple incident earlier today. We will visit with him daily. He appreciates prayer, and also
appreciates feeling heard.
--- NOTE | 2025-05-25 16:22 | W.PN.UPDATE ---
Update Note
Progress Note Update
Reviewed CT scan, no evidence of recollection of hematoma or active extravasation. Updated patient at bedside. He reports he was able to ambulate the halls earlier this afternoon and currently has no pain at rest. Removed right groin BRE drain
without incident or difficulty. BRE drain removal site clean, dry, and intact. Dressing placed.
--- NOTE | 2025-05-25 17:46 | PTCARENOTE ---
Assumed care of pt @ 0700. Pt is AAOx3 + anxious A/V paced on the monitor VSS. Rt groin agapito and rt BRE draining serosanguineous. 1015 this morning pt used the call glaser to ask for pain medicine and Ativan. Upon entering the room and offering to
get pain meds pt became verbally abusive unable to deescalate the situation Code Purple was called and security at bedside to assist. Cardiology and Vascular @ bedside. Stat CT ordered. Vascular removed the BRE drain this afternoon. Pt has been up
ambulating in halls with with family and friends.
[2025-05-25 18:50] VITALS: BP 105/60
[2025-05-25] MEDS: MIRALAX 17 GRAMS PO (20:33)
[2025-05-25] MEDS: MIRAPEX 0.125 MG PO (20:34)
[2025-05-25] MEDS: ROXICODONE 10 MG PO (20:34)
[2025-05-25] MEDS: CRESTOR 20 MG PO (20:37)
[2025-05-25 22:01] VITALS: BP 112/61; BP_SYST 64
[2025-05-25] MEDS: AMBIEN 5 MG PO (22:04)
--- NOTE | 2025-05-25 22:40 | PTCARENOTE ---
Pt's VSS, a/v paced. Complains of groin pain- 10/10, relieved by oxycodone. Groin site rotary dryer operator- sutures intact. Groin feels firm, ecchymotic around site, but contained in previous markings. Covering House provider made aware.
[2025-05-26] VITALS (8 sets, daily range): BP systolic 100–122; BP diastolic 54–66; PULSE 65; O2SAT 97
[2025-05-26 02:26] LABS: Hematocrit 31.0 % (39.0-52.0); Hemoglobin 9.8 g/dL (13.0-18.0); Mean Corp Hgb Conc. 31.6 g/dL (33.0-37.0); Mean Corpuscular Volume 88.3 fL (80.0-94.0); Nucleated Red Blood Cells % 0 % (-); Platelet Count 194 10^3/uL (130-400); Red Cell Dist. Width 16.9 % (11.5-14.5)
[2025-05-26 02:47] LABS: Blood Urea Nitrogen 20 mg/dl (9-20); Calcium 8.0 mg/dl (8.4-10.2); Carbon Dioxide 24 mmol/L (22-30); Chloride 104 mmol/L (98-107); Estimated Creatinine Clearance 72 ml/min; Glucose 97 mg/dl (70-99); Magnesium 2.1 mg/dl (1.6-2.3); Potassium 4.4 mmol/L (3.5-5.1); Sodium 132 mmol/L (135-145); eGFR > 60.00
--- NOTE | 2025-05-26 03:33 | PTCARENOTE ---
Pt's had a 1G Hgb drop in AM labs from 10.9 to 9.8. Groin site felt firm as it had earlier in the shift. No new ecchymosis in the area. VSS. STACIA Wong notified, repeat cbc q6h x2
[2025-05-26] MEDS: FLOMAX 0.4 MG PO (08:33)
[2025-05-26] MEDS: LEXAPRO 5 MG PO (08:33)
[2025-05-26] MEDS: BETAPACE 160 MG PO (08:33)
[2025-05-26] MEDS: PROTONIX 40 MG PO (08:33)
--- NOTE | 2025-05-26 08:48 | W.PN.HOSP.TC ---
Addendum entered and electronically signed by Mari Bhat MD 05/26/25 11:15:
d/w vascular and card, recc to restart Eliquis today.
Pt can restart Eliquis after DC.
Can check CBC in 3-5 days, result to PCP
Original Note:
Today's Communication/Plan
-
see A/P
Assessment / Plan
Assessment / Plan
Pt was requested to be transferred to the hospitalist service from cardiology service with current stable cardiac status but ongoing agitation.
Pt is a 79 yo M with PMH Arrhythmia, Cancer (bladder), Hypercholesterolemia, gastric resection with vagotomy, who was initially admitted for R groin pain, swelling with ecchymosis, following ablation and mapping one week PHOTO TECH.
Groin ultrasound:
Thrombosed pseudoaneurysm following thrombin injection on 05/20/25. The thrombosed pseudoaneurysm cavity measures 3 cm x 1 cm x 2.7 cm. Some residual flow is identified at the base of the pseudoaneurysm neck adjacent to the common femoral artery. The
common femoral artery, profunda femoral artery and proximal superficial femoral artery are patent with multiphasic waveforms.
CT AP:
1. 1.7 cm PSEUDOANEURYSM arising from the anterior wall of the RIGHT COMMON FEMORAL ARTERY surrounded by mild hemorrhage.
2. 5.3 cm acute hematoma in the subcutaneous fat of the anterior right groin.
3. Severe diverticulosis in the descending and sigmoid colon.
4. Mild chronic bilateral renal disease.
5. 6 mm nonobstructing left intrarenal calculus.
6. Previous distal gastrectomy and gastrojejunal anastomosis.
7. Moderate enlargement of the prostate gland.
8. Mild hepatomegaly.
9. Small bilateral pleural effusions.
10. Moderate subpleural airspace consolidation in the lower lobes.
11. Small pericardial effusion.
A/P
# R groin thrombosed pseudoaneurysm
Incompletely sealed with thrombin injection on 05/21/2025
s/p right groin exploration with open repair of right common femoral artery pseudoaneurysm by vascular on 05/[address] angio on 05/25, showed no evidence of recollection of hematoma or active extravasation.
Removed right groin BRE drain 05/25
repeat H/H ordered 05/26
Eliquis to be resumed if no further bleeding etc. Timing TBD
Pain control with Tylenol and oxycodone PRN
PT OT eval
# Agitation with behavioral disturbance likely due to severe groin pain
Pt requesting gas combustion engineer as he has had good discussion/relationship with gas combustion engineer before
He declined Psych eval
# Arrhythmia
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
# AFib, s/p PVI w/PF (03/29/2025)
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
# Tachy-Pantera, s/p DC PPM w/LBBAP lead ([employer], 10/2023)
Cont sotalol 160mg BID
# HLD
On Rosuvastatin
# Chronic Iron Deficiency Anemia
# Malabsorption Syndrome
# Prior distal gastrectomy/gastrojejunal anastomosis
# Recurrent GIB, prior transfusions
DVT prophylaxis SCDs
Code status Full code
DW RN
sent TT to vacular Dr Rodriguez and card Dr Abiel Grossman to discuss Eliquis management. Pending reply.
total time 51 min
Anticipated Discharge: Within 24 hours
Subjective/Interval History
-
Date of Service: May 26, 2025
Objective Data
-
Labs:
Laboratory Results
05/26/25 05/26/25 05/26/25
02:01 09:00 15:00
WBC 11.8 H
Hgb 9.8 L Pending Pending
Hct 31.0 L Pending Pending
Plt Count 194
Sodium 132 L
Potassium 4.4
Chloride 104
Carbon Dioxide 24
BUN 20
Creatinine 0.8
Glucose 97
Calcium 8.0 L
Vital Signs:
Vital Signs
Temp Pulse Resp BP Pulse Ox
36.3 C 82 20 116/54 94
05/26/25 08:35 05/26/25 06:00 05/26/25 08:35 05/26/25 02:03 05/26/25 08:35
I&O
05/25/25 05/26/25 05/27/25
06:59 06:59 06:59
Intake Total 2420 / 2420 800 / 800
Output Total 1430 / 1650 820 / 820
Balance 990 / 770 -20 / -20
Review of Systems
-
History Source: Patient
All other systems: Reviewed and negative
Physical Exam
-
General: Well Developed, Well Nourished, No Apparent Distress, Comfortable and Conversant; Negative Respiratory Distress
HEENT: Normocephalic, Atraumatic, Nose Appears Normal and Ears Appear Normal; Negative Oxygen
Respiratory: Clear to Auscultation and Non Labored Respirations; Negative Accessory Resp Muscle Use
Cardiac: Regular Rhythm and S1/S2
GI: Soft, Nontender, Nondistended and Normal Bowel Sounds
Skin: Warm, Dry and Other (R groin ecchymosis, no BRE drain (removed))
Neuro: Awake, Alert, Oriented and AO x 3
Psych: Calm and Intact Judgement/Insight
Data Reviewed
-
Labs: Labs Reviewed by me
[2025-05-26] MEDS: ROXICODONE 5 MG PO (08:52)
--- NOTE | 2025-05-26 09:00 | PTCARENOTE ---
Patient AOX3, pleasant. Pain control with oxycodone. Medication given. Right groin site tender, mildly firm around incision. Bruising has not extended beyond tracing. Patient walking in room and halls this morning.
--- NOTE | 2025-05-26 09:01 | W.PN.VS ---
Today's Communication / Plan
-
Seen and assessed with Dr. Rodriguez
Assessment/Plan
-
Assessment: 79-year-old male POD #3 right groin exploration with open repair of right common femoral artery pseudoaneurysm
Plan:
Out of bed/ambulate
Pain management
Okay for discharge from vascular surgery perspective
Subjective Data
-
Date of Service: May 26, 2025
Patient seen at bedside this a.m. with Dr. Rodriguez. Patient up ambulating in the room. Complains of right groin pain with twisting motions.
Objective Data
-
Vital Signs
Temp Pulse Resp BP Pulse Ox
97.3 F 82 20 116/54 94
05/26/25 08:35 05/26/25 06:00 05/26/25 08:35 05/26/25 02:03 05/26/25 08:35
Intake and Output
05/25/25 05/26/25 05/27/25
06:59 06:59 06:59
Intake Total 2420 / 2420 800 / 800
Output Total 1430 / 1650 820 / 820
Balance 990 / 770 -20 / -20
Intake:
Oral fluids 1920 / 1920 800 / 800
IV fluids (Total) 500 / 500
BOLUS 500 / 500
Output:
Drain Output (Total) 55 / 75 20 / 20
Right Hip Gabriel-Lopez 55 / 75 20 / 20
Urine, Rodriguez 725 / 725
Urine, Voided 650 / 850 800 / 800
Lab Results
05/26/25 02:01
Calcium 8.0 mg/dl (8.4-10.2) L 05/26/25 02:01
Magnesium 2.1 mg/dl (1.6-2.3) 05/26/25 02:01
Physical Exam
-
No apparent distress, ambulating in the room with no issue
No tachycardia
No dyspnea on room air
Abdomen nondistended and nontender
Right groin site open to air, agapito/incision well-approximated, all surrounding compartments soft, no evidence of hematoma
Right DP palpable +2 and foot warm
[2025-05-26 10:07] LABS: Hematocrit 33.8 % (39.0-52.0); Hemoglobin 10.9 g/dL (13.0-18.0)
--- NOTE | 2025-05-26 11:52 | W.PN.CARDCBS ---
Addendum entered and electronically signed by Pedro Aguilar MD 05/26/25 12:18:
I saw and examined the patient.
The Elevator Worker's note was reviewed and I agree with the note.
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 Postprocedure he developed right groin
hematoma and was diagnosed with pseudoaneurysm and underwent open repair with Dr. Rodriguez on 05/23/2025.
Improving postprocedure. Right lower extremity neurovascularly intact.
No cardiac complaints
In atrial paced rhythm on review of telemetry
Continue current sotalol dosing
Would recommend resuming Eliquis for risk reduction of cardioembolic stroke as long as this is safe from a vascular surgery standpoint
Stable for discharge from my perspective. Outpatient follow-up to arranged.
Original Note:
Today's Communication / Plan
-
Patient reports pain much improved today
Remains a paced. Continue sotalol
Eliquis to resume tonight
Outpatient cardiac follow-up arranged
Impression / Plan
-
PCP: Carlene Stewart MD
CDY: Clifton Grossman MD
IMPRESSION:
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
AFib, s/p PVI w/PF (03/29/2025)
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
Chronic Iron Deficiency Anemia
Malabsorption Syndrome
Prior distal gastrectomy/gastrojejunal anastomosis
Recurrent GIB, prior transfusions
PLAN:
- Patient underwent PVI with pulsed field 03/29/2025, and subsequently underwent A. tach ablation including atrial preference pacing + ATP therapies for atrial arrhythmias 05/15/2025. He then presented back with right groin pain and was found to
have pseudoaneurysm
- Incompletely sealed with thrombin injection 05/21/2025
- Status post surgical vascular repair 05/23/25
- CT scan 05/25/2025 with expected appearance, and no significant undrained fluid collection. BRE drain was removed by vascular and he felt significant relief with this
- Hemoglobin improved to 10.9. Plan to resume Eliquis tonight
- Maintaining a paced on review of telemetry. Continue sotalol 160 mg twice daily
- Plan for DC to home today
- Outpatient cardiac follow-up arranged
- Discussed with nursing, hospitalist
Progress Note - Warper Tender
Subjective
Date of Service: May 26, 2025
Pain significantly less overnight
Objective
Labs:
05/26/25 15:00
05/26/25 02:01
Labs
Hgb Cancelled 05/26/25 15:00
Hct Cancelled 05/26/25 15:00
Plt Count 194 10^3/uL (130-400) 05/26/25 02:01
PT 15.4 Sec (11.4-14.6) H 05/23/25 05:07
INR 1.19 05/23/25 05:07
Sodium 132 mmol/L (135-145) L 05/26/25 02:01
Potassium 4.4 mmol/L (3.5-5.1) 05/26/25 02:01
BUN 20 mg/dl (9-20) 05/26/25 02:01
Creatinine 0.8 mg/dL (0.7-1.3) 05/26/25 02:01
Glucose 97 mg/dl (70-99) 05/26/25 02:01
Vital Signs and I&O:
Vital Signs
Temp Pulse Resp BP Pulse Ox
97.3 F 92 20 100/66 94
05/26/25 08:35 05/26/25 10:00 05/26/25 08:35 05/26/25 08:31 05/26/25 08:35
Vital Signs
Temp Pulse Resp BP Pulse Ox
97.3 F 92 20 100/66 94
05/26/25 08:35 05/26/25 10:00 05/26/25 08:35 05/26/25 08:31 05/26/25 08:35
Intake & Output
05/24/25 05/25/25 05/26/25 05/27/25
07:59 07:59 07:59 07:59
Intake Total 350 / 350 2420 / 2420 800 / 800 240 / 240
Output Total 580 / 580 1250 / 1250 600 / 600 100 / 100
Balance -230 / -230 1170 / 1170 200 / 200 140 / 140
Physical Exam
Physical Exam
GEN: No distress, awake, alert, oriented x3
HEENT: supple, anicteric, mmm, EOMI
LUNGS: CTA bilaterally, no wheezes/rales
CV: Reg, S1/S2, no murmur
ABD: soft, BS+, NT/ND
EXT: No cyanosis, clubbing, edema
NEURO: Gross non-focal
SKIN: Warm, pink, dry. No rash. Ecchymoses in various stages of healing of upper part of right lower extremity. Sturdivant in place in right groin
--- NOTE | 2025-05-26 12:01 | PTOTSP ---
pt currently requires supervision to no assistance to complete simple ADLs, functional transfers, ambulation. pt educated on limitation of activity post operatively, pt verbalized understanding. no acute OT needs identified, will sign off.
--- NOTE | 2025-05-26 12:48 | PTCARENOTE ---
Patient discharged to home. Teaching provided and patient verbalized understanding. Patient sent home with prescription for oxycodone and blood work. Patient escorted to main lobby and assisted into car
--- NOTE | 2025-05-26 14:53 | W.DCSUMMARY ---
Discharge Summary
Discharge Data
Date of Admission: 05/22/25
Date of Discharge: 05/26/25
Total time spent discharging patient (in min): 40
-
Pending Results: No
Hospital Course
Principal Diagnosis:
R groin thrombosed pseudoaneurysm, incompletely sealed with thrombin injection on 05/21/2025, s/p right groin exploration with open repair of right common femoral artery pseudoaneurysm by vascular on 05/23
Chronic Diagnoses:�
# Arrhythmia
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
# AFib, s/p PVI w/PF (03/29/2025)
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
# Tachy-Pantera, s/p DC PPM w/LBBAP lead ([employer], 10/2023)
# HLD, on Rosuvastatin
# Chronic Iron Deficiency Anemia
# Malabsorption Syndrome
# Prior distal gastrectomy/gastrojejunal anastomosis
# Recurrent GIB, prior transfusions
# Bladder cancer
Consultations:�
Cardiology
Vascular
Procedures:�
right groin exploration with open repair of right common femoral artery pseudoaneurysm by vascular on 05/23
Clinical course:�
This is a 79-year-old male with past medical history as stated above, who was admitted for right groin pseudoaneurysm.
Problem 1:
R groin thrombosed pseudoaneurysm, which was incompletely sealed with thrombin injection on 05/21/2025, hence he underwent right groin exploration with open repair of right common femoral artery pseudoaneurysm by vascular on 05/23/2025.
His repeat CT angio on 05/25/2025 showed no evidence of recollection of hematoma or active extravasation.
His right groin BRE drain was removed on 05/25/2025.
His hemoglobin has been stable, and he was recommended to resume prior to admission Eliquis after discharge.
Problem 2:
Agitation with behavioral disturbance likely due to severe groin pain, resolved.
As for the rest of his medical problems, they were stable during his hospital stay.
Discharge Plan
-
Patient Disposition: Home (Routine Discharge)
Discharge Diagnosis/Procedures: R groin thrombosed pseudoaneurysm stutus post Right groin exploration with open repair of right common femoral artery pseudoaneurysm on 05/23
Condition: Good
Diet: Low Cholesterol
Activity: No strenuous activity
Driving Restrictions: No driving for 1 week
Bathing Restrictions: OK to Shower
Blood Work: CBC in 3-5 days, result to PCP
Wound Care: May leave groin site open to air or cover with clean dry gauze daily, gauze and Tegaderm over BRE site may be removed tomorrow
Referrals:
Aleshia Quevedo PA-C [Specified Professional Personl, Vascular Surgery] - 06/08/25 10:45 am
Referral Note: Vascular surgery follow up
Maryanne Gomez MD [Family Provider, Internal Medicine] - in less than 1 week
Christine Caceres CRNP [Specified Professional Personl, Cardiology] - 06/29/25 2:40 pm
Referral Note: You have a cardiology follow-up appointment with Dr. Lazo's nurse practitioner, Christine. Please call with questions
Additional Discharge Medication Instructions: resume Eliquis 05/26 with pm dose
Prescriptions:
New
(DME) CBC without diff
See Rx Instructions .Route .MEDSUPPLY Qty: 1 0RF
Rx Instructions:
05/29/2025 to 06/02/2025, result to PCP
# acute blood loss
# R groin pseudoaneurysm
oxycodone 5 mg tablet
5 mg PO BID PRN (Reason: Pain) Qty: 5 0RF
Continued
One Daily Multi-Vit w-Mineral 1 EACH tablet
1 tab PO DAILY
Culturelle 1 EACH capsule, sprinkle
1 tab PO QPM
minoxidil [Rogaine Extra Strength for Men] 60 ML solution
1 dose topical DAILY
Cold-Fx 200 MG
1 tab PO DAILY PRN (Reason: cold)
omeprazole 20 mg Tablet,Delayed Release (Dr/Ec)
20 mg PO BID
latanoprost 0.005 % Drops
1 drp OPHTHALMIC (EYE) HS
polyethylene glycol 3350 [Miralax] 17 gram Powder In Packet
17 g PO HS
simethicone 80 mg Tablet,Chewable
80 - 160 mg PO HS
rosuvastatin 20 mg Tablet
20 mg PO HS
escitalopram oxalate [Lexapro] 5 mg Tablet
5 mg PO DAILY
Eliquis 5 mg Tablet
5 mg PO BID
tamsulosin 0.4 MG capsule
0.4 mg PO BID
celecoxib [Celebrex] 200 mg Capsule
200 mg PO DAILYPRN PRN (Reason: inflammation)
ondansetron HCl 4 mg Tablet
4 mg PO Q6H PRN (Reason: nausea)
pramipexole 0.125 mg Tablet
0.0625 mg PO DAILYPRN PRN (Reason: RLS)
dicyclomine 10 mg Capsule
10 mg PO DAILYPRN PRN (Reason: dumping syndrome)
vardenafil 10 mg Tablet
10 mg PO PRN PRN (Reason: ED)
cyanocobalamin (vitamin B-12) 1,000 mcg/mL Solution
1,000 mcg IM QMONTH
Phospho-Lilliam 250 Neutral 250 mg Tablet
250 tab PO DAILY
albuterol sulfate 90 mcg/actuation Hfa Aerosol Inhaler
2 puff INHALATION QID
zolpidem [Ambien] 5 mg Tablet
5 mg PO HS PRN (Reason: sleep)
sennosides [Senokot] 8.6 mg Tablet
8.6 mg PO DAILY PRN (Reason: laxative)
docusate sodium [Colace] 100 mg Capsule
100 mg PO DAILY PRN (Reason: softner)
sotalol 160 mg tablet
160 mg PO BID Qty: 60 11RF
Discontinued
cefdinir 300 mg Capsule
300 mg PO DAILY
Discharge Orders:
Discharge Patient (As Directed); Ordered 05/26/25
Ordered By: Mari Bhat
Care Plan Goals
Care Plan Goals:
Problem: Readiness for enhanced knowledge related to diagnosis and treatment plan
Goal: Understand your diagnosis and treatment plan needs, including medications if applicable.
Instructions: Know your diagnosis, underlying causes and treatment plan options, including medications if applicable. Consult with your health care team to learn about your diagnosis and treatment plan, including medications if applicable.
Discharge Date and Time
Discharge Date/Time: 05/26/25 13:16
Print Language: CHINESE
== END 2025-05-26 13:16 | disposition home or self-care (01) | DRG 253 ==
LOC: IVU 22:15
PROVIDERS: Nurse Practitioner; Nurse Practitioner Family; Nurse Practitioner Gerontology; Physician Assistant Medical; ADMITTING PHYSICIAN Internal Medicine Cardiovascular Disease; ATTENDING PHYSICIAN Internal Medicine; EMERGENCY PHYSICIAN Emergency Medicine; FAMILY PHYSICIAN Internal Medicine; OTHER PHYSICIAN Internal Medicine Cardiovascular Disease; OTHER PHYSICIAN Surgery Vascular Surgery
PROC: 04QK0ZZ Repair Right Femoral Artery, Open Approach (ICD-10-PCS; 2025-05-23)
DX: T81.718A Complication of other artery following a procedure, not elsewhere classified, initial encounter (principal); I47.19 Other supraventricular tachycardia; K90.9 Intestinal malabsorption, unspecified; I72.4 Aneurysm of artery of lower extremity; C67.9 Malignant neoplasm of bladder, unspecified; D50.9 Iron deficiency anemia, unspecified; E78.00 Pure hypercholesterolemia, unspecified; F41.9 Anxiety disorder, unspecified; R45.1 Restlessness and agitation; I95.9 Hypotension, unspecified; I48.91 Unspecified atrial fibrillation; I49.5 Sick sinus syndrome; Z79.899 Other long term (current) drug therapy; Z79.01 Long term (current) use of anticoagulants; Z95.0 Presence of cardiac pacemaker
CPT/HCPCS: 35141; 74174; 80048; 83735; 85014; 85018; 85025; 85027; 85610; 86850; 86900; 86901; 93926; 97162; 97165; 99285; Q9967

== ENCOUNTER 2025-05-27 19:01 | Inpatient (IN) | payer BC, MEDICARE, SELFPAY ==
[2025-05-27 16:13] VITALS: BP 144/69
--- NOTE | 2025-05-27 16:35 | ED.GENMED ---
History of Present Illness
General
Chief Complaint: Abdominal Symptoms
Source: patient and records
Time Seen by Provider: 05/27/25 16:16
History of Present Illness
History of Present Illness:
79-year-old male presents emergency room complaint of nausea vomiting. Symptoms began at about 1:00 or so. He said multiple episodes of vomiting. Patient has a complex medical history with recent cardiac ablation for A-fib and SVT. He had a
right common femoral artery pseudoaneurysm which had thrombin injection but ultimately required open repair. He was discharged from this hospital yesterday. Patient did take an oxycodone this morning. He denies any real abdominal pain but does
have significant nausea. Patient expresses frustration with his current health because of all the procedures that he is required recently. Patient denies any diarrhea or constipation.
Past History
Past History
ED Past Medical History: Arrthythmia, Cancer (bladder), GERD and Other (anemia)
ED Past Surgical History: Cardiac, Orthopedic and Urological
Social History
Tobacco: Non-smoker
Drug: None
Personal:
Living: with family
Employment: Retired
Family History
Family History: Other
Phy Exam
Physical Exam
Physical Exam:
General: Awake, Alert, Oriented X3. No acute distress. Appears uncomfortable from nausea. Flat affect
Vitals: Low-grade fever
Head: Atraumatic
Eyes: Pupils equal, EOMI
Throat: Airway intact, no exudates, somewhat dry mucosa
Neck: Trachea midline
Lungs: Clear and equal b/l
Heart: Regular rate, no murmurs
Abd: Soft, Nontender, No pulsatile mass
Neuro: Nonfocal
Skin: Warm, dry, no rash
Extremities: pulses equal b/l, no edema. Right groin dressing intact. Salomon intact. No palpable hematoma or pulsatile mass.
Course
Orders/Labs/Results
Orders:
Orders
05/27/25 Dinner
Cholesterol Lowering
Cholesterol Lowering: Sodium, 2 Gram
05/27/25 16:26
0.9% Sodium Chloride 500 ml [Nss] 500 ml IV BOLUS
Ondansetron Injectable [Zofran] 4 mg IV NOW STA
05/27/25 16:38
Acetaminophen [Tylenol] 650 mg PO NOW STA
05/27/25 16:51
COVID-19 Antigen Urgent
Source: Nasal Swab
Complete Blood Count/With Diff Urgent
Comprehensive Metabolic Panel Urgent
Lipase Urgent
Magnesium Urgent
Troponin I Urgent
Influenza A+B Rapid Molecular Urgent
ARTHUR Source: Nasal Swab
Specimen Description:
05/27/25 16:53
CR Chest - 2 Views Urgent
Comment:
Reason For Exam: fever
05/27/25 16:59
Lactic Acid Q4H
Comment: CANCEL 2nd LACTIC ACID IF 1st LACTIC ACID IS LESS THAN 2
Urinalysis Reflex To Culture Urgent
Date Specimen was Collected: 05/27/25
Time Specimen was Collected: 16:58
Urine Microscopic Reflex Cult Urgent
Blood Culture Q30M
ARTHUR Source: Blood/Venous
Specimen Description:
Blood Culture Q30M
ARTHUR Source: Blood/Venous
Specimen Description:
Urine Culture Urgent
ARTHUR Source: U
Specimen Description:
Date Specimen was Collected: 05/27/25
Time Specimen was Collected: 16:58
05/27/25 17:58
CT Abd/pel Without Iv Or Oral Urgent
Comment:
Reason For Exam: uti, sepsis, eval for obstructing stone
05/27/25 18:28
CefTRIAXone [Rocephin] 1,000 mg IV NOW STA
05/27/25 18:44
Admit/Transfer Patient As Directed
Co-Sign Provider:
Level of Care: Inpatient admission
Assign to:: Telemetry
Physician / Group: danielle browning
Diagnosis: uti, weakness post op r groin aneurysm repair
Reason for Telemetry: Arrhythmia
Date to Stop Telemetry: 05/30/25
Time to Stop Telemetry: 11:00
Reason for Hospitalization: uti, weakness post op r groin aneurysm repair
Expected length of stay greater than two midnights?: Yes
ELOS- Estimated Length of Stay in days: 4
I certify the patient meets the requirements for IP care: Yes
Code Status As Directed
Resuscitation Status: Full Code
05/27/25 18:48
PRN Pain Medication Management As Directed
May give lesser potent ordered pain med per pt: Yes
preference::
Protocol:: Medication orders for pain may be administered in a
manner that supports deferring to patient preference
when the pt is:
- Requesting an ordered lesser potent pain medication.
Least to most potent pain medications are defined
as: acetaminophen < NSAID < tramadol < opioids
(morphine, oxycodone, hydromorphone).
- Requesting a lesser dose of the same medication IF
ORDERED.
- Requesting a less intrusive route of administration
if both routes are prescribed by the provider (PO <
IV).
05/27/25 20:48
0.9% Sodium Chloride 1000 ml [Nss] 1,000 ml IV 80 mls/hr
Acetaminophen [Tylenol] 650 mg PO Q4HPRN PRN
Apixaban [Eliquis] 5 mg PO BID
Celecoxib [Celebrex] 200 mg PO DAILYPRN PRN inflammation
Cyanocobalamin 1,000 mcg IM QMONTH
Dicyclomine [Bentyl] 10 mg PO DAILYPRN PRN dumping syndrome
Docusate Sodium [Colace] 100 mg PO DAILY PRN softner
Oxycodone [Roxicodone] 5 mg PO BID PRN Pain
Pramipexole [Mirapex] 0.0625 mg PO DAILYPRN PRN RLS
Sennosides [Senokot] 8.6 mg PO DAILY PRN laxative
Tamsulosin [Flomax] 0.4 mg PO BID
Zolpidem Tartrate [Ambien] 5 mg PO HS PRN sleep
omeprazole 20 mg PO BID
sotalol 160 mg PO BID
05/27/25 20:48
Activity As Directed
Activity Level: With Assistance
Pneumatic Compression Sleeves As Directed
Type: Knee high
Vital Signs As Directed
Frequency: q4h
DX Deep Vein Thrombosis Video Routine
05/27/25 22:00
Albuterol [ProAIR HFA INHALER] 2 puff INH R QID
Latanoprost [Xalatan Ophthalmic Solution] 1 drop OPHTH HS
Polyethylene Glycol Powder [Miralax] 17 grams PO HS
Rosuvastatin Calcium [Crestor] 20 mg PO HS
Simethicone [Mylicon] 80 - 160 mg PO HS
05/28/25 06:00
Complete Blood Count/With Diff IN AM
Comprehensive Metabolic Panel IN AM
05/28/25 08:00
Escitalopram Oxalate [Lexapro] 5 mg PO DAILY
Multivitamin [Theragran] 1 tablet PO DAILY
sod phos di, mono-K phos mono [Phospho-Lilliam 250 Neutral] 250 tablet PO DAILY
05/28/25 18:00
Lactobac/Bifidobac [Visbiome] 1 cap PO QPM
05/28/25 20:00
CefTRIAXone [Rocephin] 1,000 mg IV Q24H
05/29/25 06:00
Complete Blood Count/With Diff IN AM
Comprehensive Metabolic Panel IN AM
05/30/25 06:00
Complete Blood Count/With Diff IN AM
Comprehensive Metabolic Panel IN AM
05/30/25 11:00
DC Protocol for Telemetry ONCE
05/31/25 06:00
Complete Blood Count/With Diff IN AM
Comprehensive Metabolic Panel IN AM
Abnormal Lab Results
05/27/25 05/27/25
16:51 16:59
WBC 29.7 H 10^3/uL
(4.8-10.8)
RBC 3.97 L 10^6/uL
(4.70-6.10)
Hgb 11.4 L g/dL
(13.0-18.0)
Hct 33.6 L %
(39.0-52.0)
RDW 16.1 H %
(11.5-14.5)
Abs Immat Gran (auto) 0.2 H 10^3/uL
(0-0.05)
Absolute Neuts (auto) 26.6 H 10^3/uL
(1.4-6.5)
Absolute Lymphs (auto) 0.6 L 10^3/uL
(1.2-3.4)
Absolute Monos (auto) 1.9 H 10^3/uL
(0.1-0.6)
Immature Gran % 0.7 H %
(0-0.5)
Neutrophils % 89.6 H %
(42.2-75.2)
Lymphocytes % 2.0 L %
(20.5-51.1)
Sodium 132 L mmol/L
(135-145)
Carbon Dioxide 20 L mmol/L
(22-30)
Glucose 109 H mg/dl
(70-99)
ALT 94 H U/L
(0-50)
Alkaline Phosphatase 137 H U/L
(38-126)
Ur Occult Blood Reflex 4+ A
(Negative)
Leukocyte Esterase Rfl 2+ A
(Negative)
Urine RBC 7-10 A /HPF
(0-2)
Urine WBC (Reflex) 60-70 A /HPF
(0-5)
Urine Bacteria (Reflex) Few A
(Negative)
Urine Albumin (Reflex) 1+ A
(Neg - Trace)
05/27/25 16:51
05/27/25 16:51
Vital Signs
Initial and Last Documented VS:
Initial Vital Signs
Temp Pulse Resp BP Pulse Ox
100.2 F 81 16 144/69 93
05/27/25 16:13 05/27/25 16:13 05/27/25 16:13 05/27/25 16:13 05/27/25 16:13
Last Documented Vital Signs
Temp Pulse Resp BP Pulse Ox
98.9 F 77 16 113/58 94
05/27/25 20:56 05/27/25 20:56 05/27/25 20:56 05/27/25 20:56 05/27/25 20:56
MDM/Problems Addressed
Differential Diagnosis Includes:
COVID, pneumonia, urinary tract infection
MDM/Problems Addressed:
Patient presents with nausea vomiting from home. He is found to have a elevated temperature here. Workup reveals a markedly elevated white blood cell count of 29.7. Chemistries are reassuring. Urinalysis shows 60-70 WBCs per high-power field.
Overall presentation seems quite consistent with a urinary tract infection with sepsis. A CT was obtained to evaluate for an infected stone. There is no hydronephrosis noted. CT notes perhaps impacted stool. Patient's not having any abdominal
pain. He states he had a normal bowel movement today. I do not think any acute intervention is necessary at this time patient will likely move his bowels on his own.
*Radiology
Radiology exam reviewed: radiology read reviewed
*Pulse Oximetry
SaO2: 93
Oxygen Mode of Delivery: Room air
Patient hypoxic: no
*Critical Care Note
Total Time (30-74mins, 75-104mins- exclusive of procedures): Not Applicable
ED Attending Note
-
Portions of this chart may have been created with voice recognition software.� Occasional wrong word or��sound alike� substitutions may have occurred due to the inherent limitations of voice recognition software.
Discharge Plan
Departure
Patient Disposition: Admit
Date of Disposition: 05/27/25
Time of Disposition: 18:33
Admit to: Med/Surg
Presentation/result/management discussed w/ accepting MD/DO: Hospitalist
Condition: Fair
Discharge Problem:
Fever, Acute UTI, Nausea & vomiting
Interventions
Interventions:
*Risk Screen - Suicide Last Done: 05/27/25 20:50
*General Assessment Last Done: 05/27/25 16:13
*Neglect/Abuse Screening Last Done: 05/27/25 16:13
*ED- Fall Risk Assessment Last Done: 05/27/25 17:34
*ED COVID-19 Vaccine History Last Done: 05/27/25 20:50
*ED Influenza Vaccine History Last Done: 05/27/25 17:34
YI-Nqibui-Amcyzxrgvo Assessment Last Done: 05/27/25 19:28
[2025-05-27] MEDS: NSS 500 IV (16:43)
[2025-05-27] MEDS: ZOFRAN 4 MG IV (16:43)
[2025-05-27] MEDS: TYLENOL 650 MG PO (16:43)
[2025-05-27 17:00] VITALS: BP 138/56
[2025-05-27 17:16] LABS: Urine Character Slightly Cloudy (Clear)
[2025-05-27 17:17] LABS: COVID-19 Antigen Negative (Negative)
[2025-05-27 17:26] LABS: Hematocrit 33.6 % (39.0-52.0); Hemoglobin 11.4 g/dL (13.0-18.0); Mean Corp Hgb Conc. 33.9 g/dL (33.0-37.0); Mean Corpuscular Volume 84.6 fL (80.0-94.0); Nucleated Red Blood Cells % 0 % (-); Platelet Count 250 10^3/uL (130-400); Red Cell Dist. Width 16.1 % (11.5-14.5)
[2025-05-27 17:27] LABS: ALT (SGPT) 94 U/L (0-50); AST (SGOT) 34 U/L (17-59); Albumin 4.3 g/dl (3.5-5.0); Alkaline Phosphatase 137 U/L (38-126); Blood Urea Nitrogen 17 mg/dl (9-20); Calcium 8.9 mg/dl (8.4-10.2); Carbon Dioxide 20 mmol/L (22-30); Chloride 102 mmol/L (98-107); Glucose 109 mg/dl (70-99); Lipase 88 U/L (23-300); Magnesium 2.0 mg/dl (1.6-2.3); Potassium 4.3 mmol/L (3.5-5.1); Sodium 132 mmol/L (135-145); Total Protein 7.0 g/dl (6.3-8.2); eGFR > 60.00
[2025-05-27 17:28] LABS: Urine White Cell 60-70 /HPF (0-5)
[2025-05-27 17:38] LABS: Troponin I < 0.012 ng/ml
[2025-05-27 18:00] VITALS: BP 133/56
[2025-05-27 18:01] VITALS: BMI 23.6
--- NOTE | 2025-05-27 18:46 | HPS.HSE ---
Family Physician
-
Family Physician: NOT KNOW UNKNOWN - PT DOES
Chief Complaint
-
nausea vomiting.
History of Present Illness
79M with recent admission and DC'd 05/22/25 - 05/26/25
S/P R groin thrombosed pseudoaneurysm incompletely sealed with thrombin injection on 05/21/2025. S/p right groin exploration with open repair of right common femoral artery pseudoaneurysm by vascular on 05/23
Seen at ER:
- pw acute nausea vomiting began at this afternoon
- multiple episodes of vomiting.
- Known complex recent cardiac HX: ablation for A-fib and SVT. R common femoral artery pseudoaneurysm which had thrombin injection but ultimately required open repair.
- was discharged from this hospital yesterday on oxycodone
- denies any real abdominal pain but does have significant nausea.
- Patient denies any diarrhea or constipation.
Medical History
Past Medical History
Past Medical History: Reports Arrhythmia, Cancer (bladder) and Hypercholesterolemia
Past Surgical History: Reports Bowel Resection (gastric resection with vagotomy), Cardiac, Cholecystectomy and Orthopedic
Social History
Tobacco: Non-smoker
Alcohol: None
Drug: None
Personal:
Living: With Family
Employment: Retired
Family History
Family History: Not pertinent
Allergies / Home Medications
Allergies reflects when Allergies were last updated in [facility].
Home Medications with original date entered in [facility]
Allergy/Medication List:
Patient Allergies
Allergy/AdvReac Type Severity Reaction Status Date / Time
sildenafil Allergy Unknown Unknown Verified 05/22/25 15:52
tadalafil Allergy Unknown Unknown Verified 05/22/25 15:52
ampicillin Allergy lips, Verified 05/22/25 15:52
throats,
tongue go
numb
ciprofloxacin Allergy 'interfers Verified 05/22/25 15:52
with the
pacemaker'
cyclobenzaprine Allergy Nausea Verified 05/22/25 15:52
fentanyl AdvReac constipatio Verified 05/22/25 15:52
n
hyoscyamine (From Uribel) AdvReac constipatio Verified 05/22/25 15:52
n
methenamine (From Uribel) AdvReac constipatio Verified 05/22/25 15:52
n
methylene blue (From Uribel) AdvReac constipatio Verified 05/22/25 15:52
n
salicylates (From Uribel) AdvReac constipatio Verified 05/22/25 15:52
n
sodium phosphate (From AdvReac constipatio Verified 05/22/25 15:52
Uribel) n
Home Medications Table - record
�Medication �Instructions �Recorded �Confirmed
multivitamin with minerals-ferrous 1 tab PO DAILY Supplement 10/24/15 05/22/25
sulfate 4.5 mg iron tablet (One
Daily Multivitamins with Minerals)
Lactobacillus rhamnosus GG 15 1 tab PO QPM Gastrointestinal Issue 09/27/20 05/22/25
billion cell sprinkle capsule
(Culturelle)
Cold-Fx 1 tab PO DAILY PRN cold 09/04/21 05/22/25
minoxidil 5 % topical solution 1 dose topical DAILY 09/04/21 05/22/25
(Rogaine Extra Strength for Men)
omeprazole 20 mg tablet,delayed 20 mg PO BID Gastrointestinal Issue 11/02/23 05/22/25
release
apixaban 5 mg tablet (Eliquis) 5 mg PO BID Blood Clot 03/17/25 05/22/25
Prevention/Tx
escitalopram oxalate 5 mg tablet 5 mg PO DAILY Mental Health/Anxiety 03/17/25 05/22/25
(Lexapro)
latanoprost 0.005 % eye drops 1 drp ophthalmic (eye) HS Eye 03/17/25 05/22/25
Condition
polyethylene glycol 3350 17 gram 17 g PO HS Constipation 03/17/25 05/22/25
oral powder packet (Miralax)
rosuvastatin 20 mg tablet 20 mg PO HS High Cholesterol 03/17/25 05/22/25
simethicone 80 mg chewable tablet 80 - 160 mg PO HS Gastrointestinal 03/17/25 05/22/25
Issue
tamsulosin 0.4 mg capsule 0.4 mg PO BID Urinary Issue 03/17/25 05/22/25
celecoxib 200 mg capsule (Celebrex) 200 mg PO DAILYPRN PRN inflammation 03/22/25 05/22/25
cyanocobalamin (vitamin B-12) 1,000 mcg IM QMONTH Supplement 03/22/25 05/22/25
1,000 mcg/mL injection solution
dicyclomine 10 mg capsule 10 mg PO DAILYPRN PRN dumping 03/22/25 05/22/25
syndrome
ondansetron HCl 4 mg tablet 4 mg PO Q6H PRN nausea 03/22/25 05/22/25
pramipexole 0.125 mg tablet 0.0625 mg PO DAILYPRN PRN RLS 03/22/25 05/22/25
vardenafil 10 mg tablet 10 mg PO PRN PRN ED 03/22/25 05/22/25
albuterol sulfate 90 mcg/actuation 2 puff inhalation QID 05/15/25 05/22/25
aerosol inhaler Lung/Breathing Issues
cefdinir 300 mg capsule 300 mg PO DAILY Infection 05/15/25 05/22/25
docusate sodium 100 mg capsule 100 mg PO DAILY PRN softner 05/15/25 05/22/25
(Colace)
sennosides 8.6 mg tablet (Senokot) 8.6 mg PO DAILY PRN laxative 05/15/25 05/22/25
sodium di- and 250 tab PO DAILY Supplement 05/15/25 05/22/25
monophosphate-potassium phos
monobasic 250 mg tablet
(Phospho-Lilliam Neutral)
zolpidem 5 mg tablet (Ambien) 5 mg PO HS PRN sleep 05/15/25 05/22/25
sotalol 160 mg tablet 160 mg PO BID #60 tabs 05/17/25 05/22/25
Review of Systems
-
Constitutional: Reports No Symptoms
EENT: Reports No Symptoms
Respiratory: Reports No Symptoms
Cardiac: Reports No Symptoms
: Reports No Symptoms
Musculoskeletal: Reports No Symptoms
Skin: Reports No Symptoms
Neurological: Reports No Symptoms
Endocrine: Reports No Symptoms
Hematologic/Lymphatic: Reports No Symptoms
Psych: Reports No Symptoms
Physical Exam
Vital Signs
Vital Signs
Temp Pulse Resp BP Pulse Ox
102.7 F H 81 16 133/56 94
05/27/25 17:18 05/27/25 18:00 05/27/25 16:13 05/27/25 18:00 05/27/25 18:00
Physical Exam
General: No Apparent Distress
Respiratory: Clear
Cardiac: Regular Rhythm and Other (RT groin with palpable pulsating swelling, ecchymosis to RT groin, inner side of thigh extended to the knee)
Musculoskeletal: No Edema
Neuro: Awake and AO x 3
Laboratory Results
-
05/27/25 16:51
05/27/25 16:51
Laboratory Results
Lactic Acid Cancelled 05/27/25 21:00
Total Bilirubin 1.3 mg/dl (0.2-1.3) 05/27/25 16:51
AST 34 U/L (17-59) 05/27/25 16:51
ALT 94 U/L (0-50) H 05/27/25 16:51
Alkaline Phosphatase 137 U/L (38-126) H 05/27/25 16:51
Troponin I < 0.012 ng/ml 05/27/25 16:51
Lipase 88 U/L (23-300) 05/27/25 16:51
Impression/Plan
-
Vital Signs
Temp Pulse Resp BP Pulse Ox
102.7 F H 81 16 133/56 94
05/27/25 17:18 05/27/25 18:00 05/27/25 16:13 05/27/25 18:00 05/27/25 18:00
05/26/25 05/27/25
02:01 16:51
WBC 11.8 H 29.7 H
Hgb 9.8 L 11.4 L
Plt Count 194 250 D
05/27/25 05/27/25
16:51 16:59
Sodium 132 L
Carbon Dioxide 20 L
Creatinine 0.8
eGFR > 60.00
Lactic Acid 0.7
ALT 94 H
Alkaline Phosphatase 137 H
Troponin I < 0.012
05/27/25
16:59
Leukocyte Esterase Rfl 2+ A
Urine RBC 7-10 A
Urine WBC (Reflex) 60-70 A
Ur Squamous Epith Cells 11-15
05/27/25 CT Abd/pel Without Iv Or Oral
- Nonobstructing left renal stone. Stable
- Moderate prostate hypertrophy. Stable
- Small bilateral pleural effusions. Stable.
- Mild bibasilar consolidation probably atelectasis. Stable
- Findings suggestive of fecal impaction. Clinical correlation recommended. New
- Mild hepatomegaly. Stable
- Severe diverticulosis. Stable
- Mild cardiomegaly.
- Tiny pericardial effusion versus pericardial thickening. Stable
Last hospitalist admission:: 05/22/25 - 05/26/25
DX: R groin thrombosed pseudoaneurysm incompletely sealed with thrombin injection on 05/21/2025
s/p right groin exploration with open repair of right common femoral artery pseudoaneurysm by vascular on 05/23
ASSESSMENT & PLAN
Pending Rx reconciliation
Acute onset of vomiting and Nl BM this morning
Remote HX Partial Gastrectomy and Vagotomy for
- Unremarkable CT AP for BWO
- IV NS
- PRN IV antiemetics
- Low cholesterol diet
Acute febrile illness( T102.7) due to UTI
UTI in mal e presumed complicated
No evidence of sepsis
- No prior POS Micro data for UCx
- Agree with empiric IV CFTZ
- Tyelnol PRN
- FU UCx
Leucocytosis with relative cytosis
Highly suspect hemoconcentration
- IV NS
- fu CBC in AM
Incompletely sealed with thrombin injection on 05/21/2025 & s/p right groin exploration with open repair of right common femoral artery pseudoaneurysm by vascular on 05/23
Indication: R groin thrombosed pseudoaneurysm
- repeat CT angio on 05/25, showed no evidence of recollection of hematoma or active extravasation.
- Removed right groin BRE drain 05/25
- Observe on Eliquis , resumed since yesterday
- Pain control with Tylenol and oxycodone PRN
- PT
Chronic Diagnoses:
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
HX AFib, s/p PVI w/PF (03/29/2025) on Sotalol
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
HLD: on Rosuvastatin
Chronic Iron Deficiency Anemia
Malabsorption Syndrome
Prior distal gastrectomy/gastrojejunal anastomosis
Recurrent GIB, prior transfusions
Bladder cancer
DVT Px: on Eliquis
Full code
IP TLM
[2025-05-27 19:13] VITALS: BP 137/67
[2025-05-27] MEDS: ROXICODONE 5 MG PO (19:14)
[2025-05-27] MEDS: ROCEPHIN 1000 MG IV (19:15)
[2025-05-27 20:55] VITALS: BMI 23.2
[2025-05-27 20:56] VITALS: BP 113/58
[2025-05-27 21:11] VITALS: BMI 23.2
[2025-05-27] MEDS: PROTONIX 40 MG PO (21:53)
[2025-05-27] MEDS: CRESTOR 20 MG PO (21:53)
[2025-05-27] MEDS: MYLICON PO ×2 (21:53→22:13)
[2025-05-27] MEDS: FLOMAX 0.4 MG PO (21:53)
[2025-05-27] MEDS: AMBIEN 5 MG PO (21:53)
[2025-05-27] MEDS: BETAPACE 160 MG PO (21:53)
[2025-05-27] MEDS: MIRALAX 17 GRAMS PO (21:54)
[2025-05-27] MEDS: NSS 1000 IV (21:55)
[2025-05-27] MEDS: ELIQUIS PO (21:55)
[2025-05-27] MEDS: XALATAN OPHTHALMIC SOLUTION 1 DROP OPHTH (21:56)
[2025-05-27] MEDS: MIRAPEX 0.0625 MG PO (23:15)
[2025-05-27 23:30] VITALS: BP 97/51
[2025-05-28 03:41] VITALS: BP 106/61
[2025-05-28 07:18] LABS: ALT (SGPT) 73 U/L (0-50); AST (SGOT) 24 U/L (17-59); Albumin 3.5 g/dl (3.5-5.0); Alkaline Phosphatase 95 U/L (38-126); Blood Urea Nitrogen 18 mg/dl (9-20); Calcium 8.6 mg/dl (8.4-10.2); Carbon Dioxide 26 mmol/L (22-30); Chloride 104 mmol/L (98-107); Estimated Creatinine Clearance 64 ml/min; Glucose 93 mg/dl (70-99); Hematocrit 31.7 % (39.0-52.0); Hemoglobin 9.9 g/dL (13.0-18.0); Mean Corp Hgb Conc. 31.2 g/dL (33.0-37.0); Mean Corpuscular Volume 89.5 fL (80.0-94.0); Nucleated Red Blood Cells % 0 % (-); Platelet Count 205 10^3/uL (130-400); Potassium 4.4 mmol/L (3.5-5.1); Red Cell Dist. Width 16.6 % (11.5-14.5); Sodium 135 mmol/L (135-145); Total Protein 6.2 g/dl (6.3-8.2); eGFR > 60.00
[2025-05-28 07:25] VITALS: BP 105/66
--- NOTE | 2025-05-28 08:00 | W.PN.HOSP.TC ---
Addendum entered and electronically signed by Malinda Krueger MD 05/28/25 14:18:
Pt agrees to stay. He also provides a list of all the UTIs and abx he was on for them just in this past year. Placed a copy on his chart. Renewed IVF. c/o anxiety, added prn diazepam, confirmed on DIET ASSISTANT. Have d/w bedside RN.
Original Note:
Today's Communication/Plan
-
Continue IV antibiotics, follow urine culture result
If patient wishes to leave he can sign out AMA, and he can get a prescription for Bactrim for 7 days
Assessment / Plan
Assessment / Plan
Date of Service: May 28, 2025
79M with AF, SVT s/p ablation, h/o gastrectomy/vagotomy, p/w n/v/fever. He had recent admission for R groin thrombosed pseudoaneurysm incompletely sealed with thrombin injection on 05/21/2025. S/p right groin exploration with open repair of right
common femoral artery pseudoaneurysm by vascular on 05/23.
Intractable n/v - resolved
Remote HX Partial Gastrectomy and Vagotomy for
- Unremarkable CT AP
Could be secondary to UTI
- IV NS
- PRN IV antiemetics
- Low cholesterol diet
Sepsis secondary to UTI
With end organ dysfunction in the form of acute metabolic encephalopathy, which has since resolved
fever, leukocytosis. Leukocytosis is persistent
Continue IV ceftriaxone. Patient is at risk for MDR UTI as he says he previously took antibiotics very frequently for recurrent epididymitis, will review old records.
- Tyelnol PRN
- UCx, BCx, pending
R groin thrombosed pseudoaneurysm
Incompletely sealed with thrombin injection on 05/21/2025 & s/p right groin exploration with open repair of right common femoral artery pseudoaneurysm by vascular on 05/23
- repeat CT angio on 05/25, showed no evidence of recollection of hematoma or active extravasation.
- Removed right groin BRE drain 05/25
- Pain control with Tylenol and oxycodone PRN
Arrhythmia
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
HX AFib, s/p PVI w/PF (03/29/2025)
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
Continue Eliquis, sotalol
HLD
Rosuvastatin
Chronic Iron Deficiency Anemia
Monitor hemoglobin, transfuse if less than 7
h/o Recurrent GIB, prior transfusions
h/o Bladder cancer
Prior distal gastrectomy/gastrojejunal anastomosis
Malabsorption Syndrome
DVT Ppx
Eliquis
Full code
Anticipated Discharge: 24 - 48 hours
Subjective/Interval History
-
Patient states he is feeling great, feels like he can run laps around the hospital, denies any further nausea or vomiting, no further fevers. He states his told him he was completely out of it in the ambulance, confused. He also reports that
he has a history of recurrent epididymitis for which he follows with urology and has been on many antibiotics in the past for it. He wishes to go home and does not want to wait for cultures, explained that cultures are pending, and with his recent
hospitalization and history of many antibiotics for his epididymitis, he is at risk for resistant organism, also still has leukocytosis that is significant, and if he leaves he is at risk for bouncing back, worsening sepsis, organ dysfunction,
. If he wishes to leave he can sign out AGAINST MEDICAL ADVICE, patient does not wish to sign out AMA and wishes to stay. He also complains of anxiety and wants to be on Ativan.
Objective Data
-
Labs:
Laboratory Results
05/28/25
06:33
WBC 20.7 H
Hgb 9.9 L
Hct 31.7 L
Plt Count 205
Sodium 135
Potassium 4.4
Chloride 104
Carbon Dioxide 26
BUN 18
Creatinine 0.9
Glucose 93
Calcium 8.6
Total Bilirubin 1.0
AST 24
ALT 73 H
Alkaline Phosphatase 95
Vital Signs:
Vital Signs
Temp Pulse Resp BP Pulse Ox
98.1 F 80 16 105/66 96
05/28/25 07:25 05/28/25 07:40 05/28/25 07:40 05/28/25 07:25 05/28/25 07:40
Review of Systems
-
All other systems: Reviewed and negative
Physical Exam
-
General: No Apparent Distress
HEENT: Moist Mucous Membranes, Anicteric and PERRLA
Respiratory: Clear to Auscultation; Negative Wheezes, Rales or Rhonchi
Cardiac: Regular Rhythm and S1/S2; Negative Murmur, Rub or Gallop
GI: Soft, Nontender, Nondistended and Normal Bowel Sounds
Musculoskeletal: No Edema
Skin: Warm, Dry, Lesions (R thigh dressing c/d/i) and Other (R groin agapito c/d/i); Negative Rash or Ulcers
Neuro: Awake and AO x 3
Hematologic / Lymphatic: No Lymphadenopathy
Psych: Calm
[2025-05-28] MEDS: FLOMAX 0.4 MG PO ×2 (08:57→22:22)
[2025-05-28] MEDS: PROTONIX 40 MG PO ×2 (08:57→22:20)
[2025-05-28] MEDS: LEXAPRO 5 MG PO (08:58)
[2025-05-28] MEDS: THERAGRAN 1 TABLET PO (08:58)
[2025-05-28] MEDS: ROXICODONE 5 MG PO ×2 (09:19→23:33)
[2025-05-28] MEDS: ELIQUIS PO (09:24)
[2025-05-28] MEDS: BETAPACE 160 MG PO ×2 (10:23→22:20)
[2025-05-28 11:15] VITALS: BP 94/50
--- NOTE | 2025-05-28 12:23 | PTCARENOTE ---
Addendum entered by Rose Rice RN 05/28/25 14:39:
After speaking with Dr. Krueger, pt agrees to stay. Order for Diazepam.
Original Note:
pt with many concerns today, medications being administered the plan of care, describes a long history of hospitalizations and this causes anxiety and does not believe he needs to be here. made him aware he can leave AMA after discussion with
Evans. He feels that option is not fair, explained Dr. Krueger reply via TT 'he came in with severe infection, still has leukocytosis, reports a history of epididymitis with many antibiotics in the past so he is at risk of a resistant organism causing
the UTI. If I discharge him today without the culture result I could be sending him on the wrong antibiotic and he could bounce right back with sepsis', he understands and slightly agrees but would like to see Dr again. And wants Ativan ordered
also. Dr. Krueger aware and will address.
[2025-05-28 15:25] VITALS: BP 113/58
--- NOTE | 2025-05-28 15:40 | CM ---
Initial assessment completed with pt at bedside.
Pt is a 79yr old who was admitted with UTI and post op Right groin aneurysm repair.
Pt is from home where he lives with his in a 3 story home and 3ste. Pt has a 2nd floor bedroom but has access to 1/2 bath on 1st floor.
Pt is independent at baseline and does not use DME for mobility.
Pt does have O2 tanks that he uses PRN and a concentrator he uses in his home in [place] due to the elevation difference.
PLAN; Home with no needs anticipated
[2025-05-28] MEDS: NSS 1000 IV ×2 (16:27→22:44)
[2025-05-28] MEDS: VISBIOME 1 CAP PO (16:27)
[2025-05-28] MEDS: VALIUM 2 MG PO (16:28)
[2025-05-28 19:00] VITALS: BP 128/68
[2025-05-28] MEDS: CRESTOR 20 MG PO (22:20)
[2025-05-28] MEDS: XALATAN OPHTHALMIC SOLUTION 1 DROP OPHTH (22:20)
[2025-05-28] MEDS: MYLICON 80 MG PO (22:20)
[2025-05-28] MEDS: ELIQUIS 5 MG PO (22:20)
[2025-05-28] MEDS: STERILE WATER FOR INJECTION 10 ML IV (22:22)
[2025-05-28] MEDS: ROCEPHIN 1000 MG IV (22:22)
[2025-05-28] MEDS: MIRALAX 17 GRAMS PO (22:23)
[2025-05-28] MEDS: MIRAPEX 0.0625 MG PO (22:36)
[2025-05-28] MEDS: AMBIEN 5 MG PO (22:36)
[2025-05-28 23:00] VITALS: BP 117/65
[2025-05-28] MEDS: TYLENOL 650 MG PO (23:33)
[2025-05-29 03:00] VITALS: BP 107/62
[2025-05-29 07:02] LABS: Hematocrit 27.7 % (39.0-52.0); Hemoglobin 9.0 g/dL (13.0-18.0); Mean Corp Hgb Conc. 32.5 g/dL (33.0-37.0); Mean Corpuscular Volume 90.2 fL (80.0-94.0); Nucleated Red Blood Cells % 0 % (-); Platelet Count 184 10^3/uL (130-400); Red Cell Dist. Width 16.5 % (11.5-14.5)
[2025-05-29 07:19] LABS: ALT (SGPT) 53 U/L (0-50); AST (SGOT) 18 U/L (17-59); Albumin 3.1 g/dl (3.5-5.0); Alkaline Phosphatase 94 U/L (38-126); Blood Urea Nitrogen 16 mg/dl (9-20); Calcium 7.8 mg/dl (8.4-10.2); Carbon Dioxide 24 mmol/L (22-30); Chloride 107 mmol/L (98-107); Estimated Creatinine Clearance 72 ml/min; Glucose 88 mg/dl (70-99); Sodium 134 mmol/L (135-145); Total Protein 5.6 g/dl (6.3-8.2); eGFR > 60.00
[2025-05-29 07:25] LABS: Potassium 4.0 mmol/L (3.5-5.1)
[2025-05-29 08:00] VITALS: BP 122/76
[2025-05-29] MEDS: BETAPACE 160 MG PO (09:08)
[2025-05-29] MEDS: LEXAPRO 5 MG PO (09:08)
[2025-05-29] MEDS: THERAGRAN 1 TABLET PO (09:08)
[2025-05-29] MEDS: FLOMAX 0.4 MG PO (09:08)
[2025-05-29] MEDS: PROTONIX 40 MG PO (09:09)
[2025-05-29] MEDS: ELIQUIS 5 MG PO (09:09)
[2025-05-29] MEDS: ROXICODONE 5 MG PO (09:18)
--- NOTE | 2025-05-29 10:13 | CM ---
Addendum entered by Linsey Plata 05/29/25 10:14:
IMM benefit explained; form signedn @ [id number]
Original Note:
Met with patient at bedside; reported he has transport home
Plan: discharge to home; no needs
[2025-05-29] MEDS: NSS IV (10:56)
[2025-05-29 11:30] VITALS: BP 117/68
--- NOTE | 2025-05-29 15:09 | W.DCSUMMARY ---
Discharge Summary
Discharge Data
Date of Admission: 05/27/25
Date of Discharge: 05/29/25
-
Pending Results: No
Hospital Course
Discharging Physician : Dr Lai Sandhu
Disposition : To home
Primary care physician :
Principal Discharge diagnosis :
Nausea and vomiting urinary tract infection
Urinary tract infection and sepsis
Chronic Discharge diagnosis :
History of partial gastrectomy
History of atrioventricular dunia reentrant tachycardia with recent ablation
History of atrial fibrillation post pulmonary vein isolation
History of pacemaker placement for tachybradycardia syndrome
Chronic iron deficiency anemia
Malabsorption syndrome
History of gastrointestinal bleed
History of bladder cancer
History of prostatic hypertrophy
Right groin pseudoaneurysm post thrombin injection
History of right groin exploration and repair of femoral arterial pseudoaneurysm
Physical examination:
GEN: alert and oriented x3
HEENT: moist mucus membrane
Neuro: No motor or sensory deficits
Ext: No edema
Hospital Course :
Patient is a 79-year-old male with above-mentioned past medical history came to ER for new onset of nausea vomiting. In ER CT abdomen pelvis did not show any acute issues except chronic findings of nephrolithiasis/prostate hypertrophy and small
bilateral pleural effusion. Patient was started on symptomatic care with antiemetics and IV fluid and was admitted for further management. Patient was also noted to having high-grade fever as part of workup was found to have possibly urinary tract
infection. Patient was started on empiric Rocephin and blood culture and urine culture were collected. Blood culture reported negative and urine culture was reporting gram-negative bacilli at time of discharge. As patient had an appropriate
response with Rocephin patient was transition to oral Omnicef therapy at discharge. Patient nausea vomiting also resolved spontaneously without any further intervention.
Important imaging findings :
None
Procedure findings :
None
Discharge Plan
-
Patient Disposition: Home (Routine Discharge)
Discharge Diagnosis/Procedures: Urinary tract infection, Nausea/vomiting
Condition: Fair
Diet: Regular
Activity: As tolerated
Driving Restrictions: As prior to admission
Bathing Restrictions: OK to Shower
Referrals:
UNKNOWN - PT DOES,NOT KNOW [Family Provider]
Prescriptions:
New
cefdinir 300 mg capsule
300 mg PO BID 5 Days Qty: 10 0RF
oxycodone 5 mg capsule
5 mg PO BID PRN (Reason: moderate to severe pain) Qty: 14 0RF
Continued
One Daily Multi-Vit w-Mineral 1 EACH tablet
1 tab PO DAILY
Culturelle 1 EACH capsule, sprinkle
1 tab PO QPM
Cold-Fx 200 MG
1 tab PO DAILY PRN (Reason: cold)
omeprazole 20 mg Tablet,Delayed Release (Dr/Ec)
20 mg PO DAILY
latanoprost 0.005 % Drops
1 drp OPHTHALMIC (EYE) HS
polyethylene glycol 3350 [Miralax] 17 gram Powder In Packet
17 g PO HS
simethicone 80 mg Tablet,Chewable
80 - 160 mg PO HS PRN (Reason: Gastrointestinal Issue)
rosuvastatin 20 mg Tablet
20 mg PO HS
escitalopram oxalate [Lexapro] 5 mg Tablet
5 mg PO DAILY
Eliquis 5 mg Tablet
5 mg PO BID
Rx Instructions:
patient says this is on hold
tamsulosin 0.4 MG capsule
0.4 mg PO BID
celecoxib [Celebrex] 200 mg Capsule
200 mg PO DAILYPRN PRN (Reason: inflammation)
ondansetron HCl 4 mg Tablet
4 mg PO Q6H PRN (Reason: nausea)
dicyclomine 10 mg Capsule
10 - 20 mg PO TIDPRN PRN (Reason: dumping syndrome)
vardenafil 10 mg Tablet
10 mg PO PRN PRN (Reason: ED)
cyanocobalamin (vitamin B-12) 1,000 mcg/mL Solution
1,000 mcg IM QMONTH
zolpidem [Ambien] 5 mg Tablet
5 mg PO HS PRN (Reason: sleep)
sennosides [Senokot] 8.6 mg Tablet
8.6 mg PO DAILY PRN (Reason: laxative)
sotalol 160 mg tablet
160 mg PO BID Qty: 60 11RF
pramipexole 0.125 mg tablet
0.125 mg PO DAILYPRN PRN (Reason: RLS)
Discharge Orders:
Discharge Patient (As Directed); Ordered 05/29/25
Ordered By: Lai Sandhu
Discharge Date and Time
Discharge Date/Time: 05/29/25 11:41
Print Language: OCCITAN
== END 2025-05-29 11:41 | disposition home or self-care (01) | DRG 871 ==
LOC: 2 SOUTH 19:01
PROVIDERS: Clinical Nurse Specialist Family Health; ADMITTING PHYSICIAN Internal Medicine; ATTENDING PHYSICIAN Hospitalist; EMERGENCY PHYSICIAN Emergency Medicine
DX: A41.9 Sepsis, unspecified organism (principal); G93.41 Metabolic encephalopathy; N39.0 Urinary tract infection, site not specified; I47.19 Other supraventricular tachycardia; J98.11 Atelectasis; J90 Pleural effusion, not elsewhere classified; I31.39 Other pericardial effusion (noninflammatory); K91.2 Postsurgical malabsorption, not elsewhere classified; E78.00 Pure hypercholesterolemia, unspecified; D50.9 Iron deficiency anemia, unspecified; R65.20 Severe sepsis without septic shock; K21.9 Gastro-esophageal reflux disease without esophagitis; N20.0 Calculus of kidney; N40.0 Benign prostatic hyperplasia without lower urinary tract symptoms; F41.9 Anxiety disorder, unspecified; K56.41 Fecal impaction; K57.30 Diverticulosis of large intestine without perforation or abscess without bleeding; R16.0 Hepatomegaly, not elsewhere classified; Z85.51 Personal history of malignant neoplasm of bladder; Z86.79 Personal history of other diseases of the circulatory system; Z90.49 Acquired absence of other specified parts of digestive tract; Z88.1 Allergy status to other antibiotic agents; Z88.5 Allergy status to narcotic agent; Z88.0 Allergy status to penicillin; Z88.8 Allergy status to other drugs, medicaments and biological substances; Z79.01 Long term (current) use of anticoagulants; Z79.1 Long term (current) use of non-steroidal anti-inflammatories (NSAID); Z79.899 Other long term (current) drug therapy; Z95.0 Presence of cardiac pacemaker; Z87.19 Personal history of other diseases of the digestive system; Z90.3 Acquired absence of stomach [part of]; Z11.52 Encounter for screening for COVID-19
CPT/HCPCS: 71046; 74176; 80053; 81003; 81015; 83605; 83690; 83735; 84484; 85025; 87040; 87077; 87086; 87186; 87502; 87811; 94640; 96361; 96374; 96375; 97162; 99285

== ENCOUNTER → 2025-06-26 11:43 | Outpatient (REF) | payer BC, MEDICARE, SELFPAY | LOC: RAD 11:43 | PROVIDERS: ATTENDING PHYSICIAN Physician Assistant; FAMILY PHYSICIAN Internal Medicine; OTHER PHYSICIAN Family Medicine; OTHER PHYSICIAN Surgery Vascular Surgery | DX: I72.9 Aneurysm of unspecified site (principal) | CPT/HCPCS: 93922; 93925 ==